=== PATIENT | male | born 1950 | race Caucasian/White ===

== ENCOUNTER → 2016-06-01 | Outpatient (CLI) | payer OTHER ==
[2016-06-01 12:10] LABS: ALT 37 U/L (21-72); AST 48 U/L (17-59); Cholesterol 154 mg/dL (<200); HDL Cholesterol 69 mg/dL (40-60); Triglycerides 62 mg/dL (<150)
== END | disposition home or self-care (01) ==
LOC: LABWHC1 08:52
PROVIDERS: ATTEND Internal Medicine Cardiovascular Disease
DX: E78.2 Mixed hyperlipidemia (principal)
CPT/HCPCS: 36415; 80061; 84450; 84460

== ENCOUNTER → 2016-10-05 | Outpatient (CLI) | payer OTHER | END | disposition home or self-care (01) | LOC: LABWHC1 10:36 | PROVIDERS: ATTEND Internal Medicine Cardiovascular Disease | DX: I48.2 Chronic atrial fibrillation (principal) | CPT/HCPCS: 36415; 84443 ==

== ENCOUNTER → 2017-07-14 | Outpatient (CLI) | payer OTHER ==
[2017-07-14 09:55] LABS: ALT 50 U/L (21-72); AST 55 U/L (17-59); Cholesterol 178 mg/dL (<200); Triglycerides 57 mg/dL (<150)
[2017-07-14 10:02] LABS: LDL Cholesterol,Calculated 53 mg/dL (0-99)
[2017-07-14 10:05] LABS: HDL Cholesterol 114 mg/dL (40-60)
== END | disposition home or self-care (01) ==
LOC: LABWHC1 09:03
PROVIDERS: ATTEND Internal Medicine Cardiovascular Disease
DX: E78.2 Mixed hyperlipidemia (principal)
CPT/HCPCS: 36415; 80061; 84450; 84460

== ENCOUNTER 2017-07-31 09:13 | Emergency (ER) | payer OTHER ==
[2017-07-31 09:25] VITALS: BP 127/78; PULSE 65; RESP 18; TEMP 97.4
[2017-07-31] MEDS ORDERED: FAMOTIDINE 20 MG TAB PO STA (09:47)
[2017-07-31] MEDS ORDERED: diphenhydrAMINE 25 MG CAP PO STA (09:47)
[2017-07-31] MEDS ORDERED: predniSONE 50 MG TAB PO STA (09:47)
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
== END 2017-07-31 10:04 | disposition home or self-care (01) ==
LOC: EC 09:13
DX: L25.5 Unspecified contact dermatitis due to plants, except food (principal); I48.91 Unspecified atrial fibrillation; I25.10 Atherosclerotic heart disease of native coronary artery without angina pectoris; E07.9 Disorder of thyroid, unspecified; I10 Essential (primary) hypertension; Z86.718 Personal history of other venous thrombosis and embolism; Z95.2 Presence of prosthetic heart valve; Z95.1 Presence of aortocoronary bypass graft; Z95.818 Presence of other cardiac implants and grafts; Z87.891 Personal history of nicotine dependence; Z79.82 Long term (current) use of aspirin; Z79.01 Long term (current) use of anticoagulants; Z79.899 Other long term (current) drug therapy
CPT/HCPCS: 99282; J7512

== ENCOUNTER → 2017-08-29 | Outpatient (CLI) | payer OTHER ==
[2017-08-29 13:13] LABS: Basophils % (A) 0 %; Eosinophils # (A) 0.1 k/uL (0-0.7); Eosinophils % (A) 1 %; HCT 41.9 % (39.0-53.0); HGB 13.9 gm/dL (13.0-17.5); Lymphocytes # (A) 1.1 k/uL (1.0-4.8); Lymphocytes % (A) 16 %; MCHC 33.2 g/dL (31.0-37.0); MCV 102.4 fL (80.0-100.0); Macrocytosis Slight; Mean Platelet Volume 7.2; Monocytes # (A) 0.5 k/uL (0-1.0); Monocytes % (A) 7 %; Neutrophils # (A) 5.1 k/uL (1.3-7.7); Neutrophils % (A) 72 %; Platelet Count 265 k/uL (150-450); RBC 4.09 m/uL (4.30-5.90); RDW 14.3 % (11.5-15.5); WBC 7.1 k/uL (3.8-10.6)
[2017-08-29 13:17] LABS: INR 2.6 (<1.2); Prothrombin Time 23.4 sec (9.0-12.0)
[2017-08-29 13:34] LABS: Albumin 3.5 g/dL (3.5-5.0); Calcium 8.7 mg/dL (8.4-10.2); Potassium 4.3 mmol/L (3.5-5.1); Total Bilirubin 1.1 mg/dL (0.2-1.3); Total Protein 6.2 g/dL (6.3-8.2)
== END | disposition home or self-care (01) ==
LOC: LABWHC1 12:44
PROVIDERS: ATTEND Family Medicine
DX: R06.02 Shortness of breath (principal); Z51.81 Encounter for therapeutic drug level monitoring; Z79.01 Long term (current) use of anticoagulants
CPT/HCPCS: 36415; 80053; 83880; 85025; 85610

== ENCOUNTER → 2017-10-19 | Outpatient (CLI) | payer OTHER ==
[2017-10-19 12:48] LABS: HCT 42.9 % (39.0-53.0); HGB 13.9 gm/dL (13.0-17.5); MCH 33.3 pg (25.0-35.0); MCHC 32.3 g/dL (31.0-37.0); MCV 102.9 fL (80.0-100.0); Macrocytosis Slight; Mean Platelet Volume 7.4; Platelet Count 205 k/uL (150-450); RBC 4.17 m/uL (4.30-5.90); RDW 13.5 % (11.5-15.5); WBC 6.3 k/uL (3.8-10.6)
[2017-10-19 13:02] LABS: Potassium 4.1 mmol/L (3.5-5.1)
== END | disposition home or self-care (01) ==
LOC: LABWHC1 12:28
PROVIDERS: ATTEND Internal Medicine Cardiovascular Disease
DX: Z01.812 Encounter for preprocedural laboratory examination (principal); I25.5 Ischemic cardiomyopathy
CPT/HCPCS: 36415; 80051; 82565; 84520; 85027

== ENCOUNTER → 2017-11-04 | Day surgery (SDC) | payer OTHER, MEDICARE ==
[2017-11-02 13:59] VITALS: BMI 25.0
[~2017-11-04] MED LIST: ACETAMINOPHEN TAB 325 MG TAB ONE; ACETAMINOPHEN TAB 325 MG TAB PO STA; ALPRAZolam 0.25 MG TAB PO PRN; ALPRAZolam 0.5 MG TAB PO PRN; ASPIRIN 325 MG TAB PO STA; ATORVASTATIN 80 MG TAB PO STA; HEPARIN SODIUM 1,000 UN/ML (10ML VL) ONE; IOPAMIDOL-370 125ML BTL INJ ONE; LIDOCAINE 1% INJ 10MG/ML (20 ML MDV) ONE; MIDAZOLAM 2 MG/2 ML VIAL ONE; NITROGLYCERIN SL TABS 0.4 MG TAB SUBLINGUAL PRN; SODIUM CHLORIDE 0.9% 1,000 ML IV ONE; SODIUM CHLORIDE 0.9% 1,000 ML IV SCH; SODIUM CHLORIDE 0.9% 1,000 ML in EMPTY BAG 1 BAG IV ONE; VERAPAMIL 2.5 MG/ML 2 ML AMP ONE; diphenhydrAMINE 50 MG/ML 1 ML VIAL IVP ONE; diphenhydrAMINE 50 MG/ML 1 ML VIAL ONE
[2017-11-04 06:49] VITALS: RESP 18; TEMP 97.4
[2017-11-04 06:49] LABS: INR 1.4 (<1.2); Prothrombin Time 13.2 sec (9.0-12.0)
[2017-11-04] MEDS: MIDAZOLAM 2 MG/2 ML VIAL IVP ONE ×4 (07:32→08:16)
[2017-11-04] MEDS: LIDOCAINE 1% (PF) 10MG/ML VIAL SQ ONE ×2 (07:37→08:10)
[2017-11-04] MEDS: VERAPAMIL SYRINGE (5 MG/10 ML) INTRAARTER ONE ×2 (08:15→08:43)
--- NOTE | 2017-11-04 09:18 | CC ---
CARDIAC CATHETERIZATION REPORT DATE OF SERVICE: 11/04/2017. PROCEDURE: Coronary angiography from left radial approach. PERFORMED BY: Dr. Denia Love. Moderate conscious sedation time was 43 minutes. Patient was administered Versed and Benadryl and his oxygen saturation and hemodynamics were monitored closely as well as EKG. CLINICAL INFORMATION: Mr. Orville Ba is a patient of Dr. Onofre, who was brought in for elective cardiac cath because of an abnormal stress test and suspicion for angina. This gentleman has a history of aortic valve replacement with a composite graft as well as reimplantation of coronaries and repair of a coarctation of the aorta and all of this was performed sometime in [address] [facility]. Onofre attempted the cardiac cath from the right femoral approach, but had difficulty gaining a good access with a Glidewire into the descending thoracic aorta. At this point, he asked me to help him. I suggested that we go from the left radial approach. This patient also had a single bypass with LIANG to LAD as well, according to information that was available. I therefore gained access from the left radial and placed a 6-Bangladeshi introducer under strict aseptic precautions and local anesthesia. Using a Greer catheter, I performed selective coronary angiography of the left internal mammary. It appeared that this was an ectatic vessel, seemed to be nonfunctional. The distal connection to the LAD was not evident and the flow was very sluggish and vessel was ectatic. I then using a Glidewire, gained access into the ascending aorta very carefully. Under fluoroscopic guidance, I was able to gain access with a standard right Danyell catheter into the [place] RCA and also using a standard left Danyell catheter into the left main coronary artery. Left main was a little more anterior and superior to the usual location. The access into the ascending aorta was somewhat difficult because of extreme tortuosity. However, selective coronary angiography was performed but I did not attempt to get into the left ventricle for pressures. The wire and the catheter was taken out. The sheath was taken out and TR band applied as per protocol with good hemostasis and good saturation of the fingers of the left hand. The right femoral sheath was pulled and manual compression applied and FemoStop will be applied. Patient tolerated procedure well without complication. Results were discussed with the patient and Dr. Onofre spoke to his at length. CARDIAC CATHETERIZATION FINDINGS: The left ventricle end-diastolic pressure was not checked and LV was not entered and aortic valve not crossed. LEFT INTERNAL MAMMARY ARTERY GRAFT TO LAD: This graft appears to be ectatic with a tortuosity and a large caliber and ectasia in the proximal portion of the left internal mammary artery, but the distal anastomosis is not evident. It appears that the LIANG anastomosed is nonfunctional. RIGHT CORONARY ARTERY: Technically dominant vessel. No significant disease. Tortuous distally, bifurcates into a larger PDA, small PLV. No significant disease in the branches of RCA. LEFT MAIN CORONARY ARTERY: Short, patent, disease-free vessel that bifurcates into LAD and circumflex. Left main itself is free of significant disease. LEFT ANTERIOR DESCENDING CORONARY ARTERY: Good caliber vessel, extends along the anterior wall and gives off septal and diagonal branches, runs all the way to the apex, has minor irregularities, no significant disease. LEFT POSTERIOR CIRCUMFLEX CORONARY ARTERY: Technically a nondominant good caliber vessel that runs laterally, mostly in the PLV distribution, has minor irregularities and no significant disease. FINAL IMPRESSION: This patient has no significant obstructive coronary artery disease in his [place] vessels. The LIANG appears to be somewhat ectatic and nonfunctional. Procedure was performed from the left radial approach. LV pressures were not obtained. The findings were discussed with the patient and Dr. Onofre spoke to the patient's . RECOMMENDATION: Will continue medical therapy with risk factor modification and his medication will be resumed and he will be discharged later on today if he remains stable. He will see Dr. Onofre in one week. MMODL / IJN: [id number] /
[2017-11-04 16:26] VITALS: BP 98/63; PULSE 62
== END ==
LOC: CATHCVL 06:07
PROVIDERS: ATTEND Internal Medicine Cardiovascular Disease
DX: I25.700 Atherosclerosis of coronary artery bypass graft(s), unspecified, with unstable angina pectoris (principal); I48.2 Chronic atrial fibrillation; I71.2 Thoracic aortic aneurysm, without rupture; R94.39 Abnormal result of other cardiovascular function study; I35.0 Nonrheumatic aortic (valve) stenosis; I25.5 Ischemic cardiomyopathy; I10 Essential (primary) hypertension; R00.1 Bradycardia, unspecified; I25.2 Old myocardial infarction; Z95.2 Presence of prosthetic heart valve; F17.210 Nicotine dependence, cigarettes, uncomplicated; Z79.01 Long term (current) use of anticoagulants; Z79.890 Hormone replacement therapy; Z79.899 Other long term (current) drug therapy
CPT/HCPCS: 93455; 85610; C1769 ×3; C1894 ×2; J2250; J1200; J2001; Q9967

== ENCOUNTER → 2019-07-05 | Outpatient (CLI) | payer BC, MEDICARE ==
--- NOTE | 2019-07-06 07:36 | CT ---
EXAMINATION TYPE: CT chest w con DATE OF EXAM: 07/05/2019 COMPARISON: CTA chest August 06, 2013. Two-view chest x-ray April 09, 2019. HISTORY: cough. Recent significant weight loss. CT DLP: 351 mGycm. Automated Exposure Control for Dose Reduction was Utilized. TECHNIQUE: CT scan of the thorax is performed following with IV Contrast, patient injected with 80 m L of Isovue 300. FINDINGS: LUNGS: Redemonstration of calcified pleural plaque left lung base could reflect products of old traum a. Current study shows more prominent dependent atelectasis in the bilateral lower lobes and increase d interstitial markings bilaterally suggesting mild interstitial edema. No suspicious focal consolida tion. No pleural effusion or pneumothorax noted bilaterally. No concerning nodules or masses. MEDIASTINUM: There are no greater than 1 cm hilar or mediastinal lymph nodes. No pericardial effusi on is seen. There is cardiomegaly redemonstrated increased in size from 2014 CT. Fairly moderate lef t atrial dilatation more prominent from prior CT with densely calcified mitral valve noted. Additiona l calcification at level of aortic valve again seen. At least moderate coronary artery calcification is redemonstrated which is noted risk factor for underlying coronary artery disease. Similar to prior study there is three-vessel origin from aortic arch with dilated left subclavian artery. There is an linear hypodensity in the ectatic and atherosclerotic descending left-sided thoracic aorta. There is also right-sided better contrast enhancement descending thoracic aorta redemonstrated. Overlying juan rnal wires redemonstrated. OTHER: New small hiatal hernia noted. Dependent density in gallbladder favors small stones and/or gal lbladder sludge. Some renal cortical volume loss bilaterally is partially imaged. S-shaped scoliotic curvature with mild to moderate multilevel thoracic spurring. Multiple small splenules in the left up per quadrant are redemonstrated increased in size from prior CT. IMPRESSION: 1. Redemonstration of patent right sided graft from the ascending aorta for treatment of known coarct ation. Persistent cardiomegaly with mild interstitial edema on current study. Cannot exclude mild CHF exacerbation or fluid overload state. No suspicious acute infiltrate or concerning new mass/adenopat hy.
== END | disposition home or self-care (01) ==
LOC: RADCTMAIN 13:50
PROVIDERS: ATTEND Internal Medicine Hematology & Oncology
DX: I51.7 Cardiomegaly (principal); R05 Cough
CPT/HCPCS: 82565; 84520; 71260; 36415; Q9967

== ENCOUNTER → 2019-09-13 | Outpatient (CLI) | payer BC, MEDICARE ==
[2019-09-13 15:24] LABS: HCT 35.8 % (39.0-53.0); HGB 11.5 gm/dL (13.0-17.5); MCH 30.6 pg (25.0-35.0); MCHC 32.1 g/dL (31.0-37.0); MCV 95.5 fL (80.0-100.0); Mean Platelet Volume 8.4; Platelet Count 263 k/uL (150-450); RBC 3.75 m/uL (4.30-5.90); WBC 9.5 k/uL (3.8-10.6)
[2019-09-14 00:42] LABS: African American GFR (CKD) 50.6 (60.0-200.0); Anion Gap 5.8 mmol/L (4.00-12.00); Calcium 9.3 mg/dL (8.7-10.3); Carbon Dioxide 26.2 mmol/L (21.6-31.8); Non-African American GFR(CKD) 43.6 (60.0-200.0); Potassium 4.7 mmol/L (3.5-5.5)
== END | disposition home or self-care (01) ==
LOC: LABWHC1 14:46
PROVIDERS: ATTEND Internal Medicine Cardiovascular Disease
DX: I50.22 Chronic systolic (congestive) heart failure (principal)
CPT/HCPCS: 36415; 80048; 83880; 84443; 85027

== ENCOUNTER → 2019-10-25 | Day surgery (SDC) | payer BC, MEDICARE ==
[2019-10-23 10:41] VITALS: BMI 23.7
[~2019-10-25] MED LIST changes: -ACETAMINOPHEN TAB 325 MG TAB ONE; -ACETAMINOPHEN TAB 325 MG TAB PO STA; -ALPRAZolam 0.25 MG TAB PO PRN; -ALPRAZolam 0.5 MG TAB PO PRN; -ASPIRIN 325 MG TAB PO STA; -ATORVASTATIN 80 MG TAB PO STA; +BENZOCAINE SPRAY 1 CAN MUCOUS MEM ONE; -HEPARIN SODIUM 1,000 UN/ML (10ML VL) ONE; -IOPAMIDOL-370 125ML BTL INJ ONE; +LACTATED RINGERS 1,000 ML IV SCH; -MIDAZOLAM 2 MG/2 ML VIAL ONE; -NITROGLYCERIN SL TABS 0.4 MG TAB SUBLINGUAL PRN; +PROPOFOL 10 MG/ML 20 ML VIAL IV ONE; -SODIUM CHLORIDE 0.9% 1,000 ML IV ONE; -SODIUM CHLORIDE 0.9% 1,000 ML in EMPTY BAG 1 BAG IV ONE; -VERAPAMIL 2.5 MG/ML 2 ML AMP ONE; -diphenhydrAMINE 50 MG/ML 1 ML VIAL IVP ONE; -diphenhydrAMINE 50 MG/ML 1 ML VIAL ONE
[2019-10-25 07:06] VITALS: TEMP 98.6
[2019-10-25 07:45] LABS: Potassium 4.8 mmol/L (3.5-5.1)
[2019-10-25 08:06] VITALS: RESP 16
--- NOTE | 2019-10-25 09:01 | ECHOT ---
TRANSESOPHAGEAL ECHOCARDIOGRAM TRANSESOPHAGEAL ECHO: INDICATION: Persistent atrial fibrillation to rule out intracardiac thrombus. PROCEDURE NOTE: After obtaining informed consent, transesophageal echocardiogram was performed in left lateral position using an Omni plane probe. Local and IV sedation were obtained by the retail advertising account executive. Color Doppler and 2D evaluation was performed. Patient tolerated the procedure well without any obvious immediate complications. FINDINGS: 1. There is no intracardiac thrombus within the left atrial appendage, left atrium, right atrium, right ventricle or left ventricle. 2. Spontaneous echo contrast is noted within the left atrium and left atrial appendage. 3. Interatrial septum, there is no evidence of [id number]-ki-fonqz shunt by color-flow Doppler. Mitral valve shows pyrometer mechanic calcification with moderate central mitral regurgitation. 4. Aortic valve is a bioprosthetic valve. There is no evidence of aortic stenosis or regurgitation. The prosthetic valve is functioning normally. 5. Tricuspid valve shows mild tricuspid regurgitation. 6. Left ventricle appears enlarged with mild LV dysfunction with an ejection fraction of 40%-45% with hypokinesis involving inferior wall. 7. Left atrium appears enlarged. Right atrium and right ventricle seen within normal limits. Aorta shows lesa-hi-lwrmdxyc atherosclerotic changes. Aortic root is not dilated. CONCLUSION: 1. No evidence of intracardiac thrombus. 2. LV systolic dysfunction. 3. Normally functioning bioprosthetic valve in aortic position. PLAN: Patient will proceed with cardioversion. CARDIOVERSION NOTE: INDICATION: Persistent atrial fibrillation. PROCEDURE NOTE: After obtaining informed consent and making sure that the patient does not have any intracardiac thrombus, he underwent synchronized electrical cardioversion with 300 joules. He converted to sinus rhythm following a single shock. The patient had been on Eliquis which he is going to continue. Post conversion, he was bradycardic. I am going to decrease the dose of his Toprol-XL from 50 b.i.d. to 25 mg daily. He will be discharged home on Eliquis, beta agustina and see how his symptoms improve. MMODL / IJN: [id number] /
[2019-10-25 09:23] VITALS: BP 108/72; PULSE 55
--- NOTE | 2019-10-28 11:21 | CDI ---
Outpatient Documentation Clarification Form Date: 10/25/19 CDS/Rigger Name: Christina Nieto Phone: If any questions, call Nunu Xie Electrical Assembler at [phone] Patient Name: Orville Ba Admit Date: 10/25/19 Discharge Date: 10/25/19 ATTENTION: The [facility] Coding Staff appreciate your assistance in clarifying documentation. Please respond to the clarification below the line at the bottom and electronically sign. The [facility] Coding staff will review the response and follow-up if needed. Please note: Queries are made part of the Legal Health Record. If you have any questions, please contact the Electrical Assembler. Dear Dr. Onofre, Please clarify the complete procedure performed. The procedure note documents two parts of the KRYSTAL. In order to code to the greatest specificity, please clarify and document if all parts of the KRYSTAL were performed. Thank you for your kind consideration . MTDD
--- NOTE | 2019-10-29 08:04 | CDI ---
Outpatient Documentation Clarification Form Date: 10/29/19 CDS/Tumble Tailstock Turret Lathe Operator Name: Phone: If any questions, call Nunu Xie Data Acquisition Technician at [phone] Patient Name: Orville Ba Admit Date: 10/25/19 Discharge Date: 10/25/19 ATTENTION: The [facility] Coding Staff appreciate your assistance in clarifying documentation. Please respond to the clarification below the line at the bottom and electronically sign. The [facility] Coding staff will review the response and follow-up if needed. Please note: Queries are made part of the Legal Health Record. If you have any questions, please contact the Data Acquisition Technician. Dear Dr. Onofre, Please provide clarification as to the full procedure that was performed. The charges indicate that all aspects of the KRYSTAL were performed. However, the procedure note does not document the whole procedure. Please clarify if all of the following were performed. Echocardiography,transesophageal,real time 2D imaging Doppler echocardiography pulse wave and/or continuous wave wit spectral display Doppler echocardiography color flow velocity mapping Thank you for your kind consideration. 2d doppler pulse wave and continuos done__ MTDD
== END ==
LOC: CATHCVL 06:40
PROVIDERS: ATTEND Internal Medicine Cardiovascular Disease
DX: I70.0 Atherosclerosis of aorta (principal); I08.1 Rheumatic disorders of both mitral and tricuspid valves; I11.0 Hypertensive heart disease with heart failure; I50.22 Chronic systolic (congestive) heart failure; I38 Endocarditis, valve unspecified; I48.21 Permanent atrial fibrillation; I25.10 Atherosclerotic heart disease of native coronary artery without angina pectoris; I25.5 Ischemic cardiomyopathy; I71.2 Thoracic aortic aneurysm, without rupture; Z95.1 Presence of aortocoronary bypass graft; Z95.2 Presence of prosthetic heart valve; Z72.0 Tobacco use; Z79.01 Long term (current) use of anticoagulants; Z79.890 Hormone replacement therapy; Z79.899 Other long term (current) drug therapy
CPT/HCPCS: 93312; 93320; 93325; 92960; 80048; J2001; J2704

== ENCOUNTER → 2019-12-04 | Outpatient (CLI) | payer BC, MEDICARE ==
--- NOTE | 2019-12-04 14:07 | XR ---
EXAMINATION TYPE: XR chest 2V DATE OF EXAM: 12/04/2019 COMPARISON: 04/09/2019 HISTORY: Shortness of breath TECHNIQUE: Frontal and lateral views of the chest are obtained. FINDINGS: Scattered senescent parenchymal changes noted. Hyperinflation compatible with COPD. No evidence for infiltrate. No evidence for atelectasis. Heart size is stable. Mediastinal structures are stable and grossly unremarkable. No evidence for hilar prominence. Degenerative changes dorsal spine. IMPRESSION: 1. No evidence for acute pulmonary disease.
== END | disposition home or self-care (01) ==
LOC: RADXRMAIN 13:32
PROVIDERS: ATTEND Family Medicine
DX: R13.10 Dysphagia, unspecified (principal)
CPT/HCPCS: 71046

== ENCOUNTER → 2019-12-17 | Outpatient (CLI) | payer BC, MEDICARE ==
--- NOTE | 2019-12-17 16:37 | FL ---
EXAMINATION TYPE: FL barium swallow w video DATE OF EXAM: 12/17/2019 MODIFIED BARIUM SWALLOW FLUOROSCOPY EXAM CLINICAL HISTORY: Dysphagia. History of GERD. TECHNIQUE: Notified barium swallow study is performed utilizing thin liquid barium, honey and nectar thick liquid barium, barium thick puree, and barium coated cracker. COMPARISON: None. FINDINGS: The oral and pharyngeal phases show satisfactory initiation and propagation with all modali ties tested. Normal mastication is seen with solid modalities tested. There is no evidence of penet ration or aspiration with any modality tested. No significant pharyngeal residue was appreciated. Total fluoroscopy time: 1 minute IMPRESSION: No evidence of penetration or aspiration. Please refer to speech therapist notes for fu rther details if necessary.
== END | disposition home or self-care (01) ==
LOC: RADFLMAIN 11:13
PROVIDERS: ATTEND Family Medicine
DX: K21.9 Gastro-esophageal reflux disease without esophagitis (principal); R13.10 Dysphagia, unspecified
CPT/HCPCS: 74230

== ENCOUNTER → 2020-01-03 | Outpatient (CLI) | payer BC, MEDICARE ==
[2020-01-03 15:14] LABS: HCT 37.9 % (39.0-53.0); HGB 12.2 gm/dL (13.0-17.5); MCH 30.7 pg (25.0-35.0); MCHC 32.2 g/dL (31.0-37.0); MCV 95.3 fL (80.0-100.0); Mean Platelet Volume 9.1; Platelet Count 198 k/uL (150-450); RBC 3.98 m/uL (4.30-5.90); RDW 14.5 % (11.5-15.5); WBC 11.4 k/uL (3.8-10.6)
[2020-01-03 21:22] LABS: African American GFR (CKD) 20.3 (60.0-200.0); Anion Gap 9.4 mmol/L (4.00-12.00); BUN/Creat Ratio 15.88 Ratio (12.00-20.00); Calcium 8.5 mg/dL (8.7-10.3); Carbon Dioxide 19.6 mmol/L (21.6-31.8); Non-African American GFR(CKD) 17.5 (60.0-200.0); Potassium 5.2 mmol/L (3.5-5.5)
== END | disposition home or self-care (01) ==
LOC: LABWHC1 13:52
PROVIDERS: ATTEND Internal Medicine Cardiovascular Disease
DX: I48.19 Other persistent atrial fibrillation (principal); Q25.1 Coarctation of aorta; Z95.2 Presence of prosthetic heart valve
CPT/HCPCS: 36415; 80048; 84443; 85027

== ENCOUNTER 2020-01-18 19:46 | Inpatient (IN) | payer BC, MEDICARE ==
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
[2020-01-18] MEDS ORDERED: SODIUM CHLORIDE 0.9% 500 ML 500 ML IV STA (20:16)
[2020-01-18] MEDS ORDERED: SODIUM CHLORIDE 0.9% 1,000 ML IV STA ×3 (20:16→21:46)
[2020-01-18 20:33] LABS: Basophils % (A) 0 %; Eosinophils % (A) 0 %; HCT 34.5 % (39.0-53.0); HGB 11.6 gm/dL (13.0-17.5); Lymphocytes # (A) 3.6 k/uL (1.0-4.8); Lymphocytes % (A) 31 %; MCH 30.8 pg (25.0-35.0); MCHC 33.5 g/dL (31.0-37.0); Mean Platelet Volume 9.4; Monocytes # (A) 0.4 k/uL (0-1.0); Monocytes % (A) 4 %; Neutrophils # (A) 7.1 k/uL (1.3-7.7); Neutrophils % (A) 62 %; Platelet Count 135 k/uL (150-450); RBC 3.75 m/uL (4.30-5.90); WBC 11.5 k/uL (3.8-10.6)
[2020-01-18 20:45] LABS: ALT 13 U/L (4-49); AST 23 U/L (17-59); African American GFR (CKD) 13 (>60 ml/min/1.73 sqM); Albumin 2.9 g/dL (3.5-5.0); Alcohol <10 mg/dL; Alkaline Phosphatase 107 U/L (38-126); Anion Gap 8 mmol/L; Blood Urea Nitrogen 84 mg/dL (9-20); C Reactive Protein 42.8 mg/L (<10.0); Calcium 8.2 mg/dL (8.4-10.2); Carbon Dioxide 18 mmol/L (22-30); Chloride 106 mmol/L (98-107); Creatine Kinase 22 U/L (55-170); Glucose 105 mg/dL (74-99); LDH 615 U/L (313-618); Magnesium 2.1 mg/dL (1.6-2.3); Non-African American GFR(CKD) 11 (>60 ml/min/1.73 sqM); Phosphorus 5.2 mg/dL (2.5-4.5); Potassium 4.8 mmol/L (3.5-5.1); Sodium 132 mmol/L (137-145); Total Bilirubin 0.9 mg/dL (0.2-1.3); Total Protein 8.2 g/dL (6.3-8.2)
--- NOTE | 2020-01-18 20:46 | XR ---
EXAMINATION TYPE: XR chest 1V portable DATE OF EXAM: 01/18/2020 COMPARISON: 12/04/2019 HISTORY: Short of breath TECHNIQUE: FINDINGS: Heart is enlarged. There are sternal wires. There is coarse mild interstitial pulmonary den sity. There are chest leads. There is no pleural effusion. There are no hilar masses. IMPRESSION: Mild cardiomegaly. Mild pulmonary interstitial infiltrate similar to old exam. This could relate to pulmonary fibrosis or mild heart failure. Acute interstitial pneumonia also possible.
[2020-01-18] MEDS ORDERED: IPRATROPIUM-ALBUTEROL 3 ML NEB INHALATION STA ×2 (21:02→22:47)
[2020-01-18 21:06] LABS: INR 1.3 (<1.2); Partial Thromboplastin Time 33.7 sec (22.0-30.0); Prothrombin Time 12.9 sec (9.0-12.0)
[2020-01-18] MEDS ORDERED: SODIUM CHLORIDE 0.9% 2,000 ML IV STA (21:46)
[2020-01-19] MEDS: SODIUM CHLORIDE 0.9% 1,000 ML IV SCH ×3 (02:00→17:15)
[2020-01-19] MEDS ORDERED: DILTIAZEM DRIP BOLUS FROM BAG 1 MG SOLN IV ONE (05:18)
[2020-01-19] MEDS: DILTIAZEM 125 MG in SODIUM CHLORIDE 0.9% 100 ML IV SCH (06:03)
[2020-01-19 06:37] LABS: Basophils % (A) 0 %; Eosinophils % (A) 0 %; HCT 36.5 % (39.0-53.0); HGB 11.6 gm/dL (13.0-17.5); Lymphocytes # (A) 3.8 k/uL (1.0-4.8); Lymphocytes % (A) 30 %; MCHC 31.9 g/dL (31.0-37.0); MCV 94.2 fL (80.0-100.0); Mean Platelet Volume 10.4; Monocytes # (A) 0.4 k/uL (0-1.0); Monocytes % (A) 3 %; Neutrophils # (A) 8.2 k/uL (1.3-7.7); Neutrophils % (A) 64 %; Platelet Count 109 k/uL (150-450); RBC 3.87 m/uL (4.30-5.90); RDW 14.6 % (11.5-15.5); WBC 12.8 k/uL (3.8-10.6)
[2020-01-19 06:57] LABS: Albumin 3.1 g/dL (3.5-5.0); Calcium 8.3 mg/dL (8.4-10.2); Potassium 4.9 mmol/L (3.5-5.1); Total Bilirubin 0.9 mg/dL (0.2-1.3); Total Protein 8.7 g/dL (6.3-8.2)
[2020-01-19] MEDS ORDERED: ALBUTEROL HFA INHALER INHALATION SCH (08:00)
[2020-01-19] MEDS: METOPROLOL TARTRATE 25 MG TAB PO SCH ×2 (08:40→19:55)
[2020-01-19] MEDS ORDERED: ENOXAPARIN 40 MG/0.4 ML SYRINGE SQ SCH (09:00)
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
--- NOTE | 2020-01-19 12:00 | ECHOF ---
Referral Reason:chf MEASUREMENTS -------- HEIGHT: 177.8 cm WEIGHT: 90.7 kg BP: IVSd: 1.3 cm (0.6 - 1.1) LVIDd: 4.6 cm (3.9 - 5.3) LVPWd: 1.4 cm (0.6 - 1.1) EDV(Teich): 99 ml IVSs: 1.4 cm LVIDs: 3.8 cm LVPWs: 1.5 cm %IVS Thck: 13 % ESV(Teich): 64 ml EF(Teich): 36 % %FS: 17 % SV(Teich): 36 ml LA Diam: 1.3 cm (2.7 - 3.8) RVIDd: 2.9 cm (< 3.3) IVC: 16.67 mm LVLd A4C: 8.1 cm LVEDV MOD A4C: 154 ml LVLs A4C: 7.5 cm LVESV MOD A4C: 86 ml LVEF MOD A4C: 45 % SV MOD A4C: 69 ml LALs A4C: 8.0 cm LAAs A4C: 36.8 cm LAESV A-L A4C: 143 ml LAESV MOD A4C: 137 ml LALs A2C: 7.3 cm LAAs A2C: 30.6 cm LAESV A-L A2C: 108 ml LAESV MOD A2C: 102 ml LAESV(A-L): 130 ml LAESV Index (A-L): 62.36 ml/m Ao Diam: 2.5 cm (2.0 - 3.7) LA Diam: 4.8 cm (2.7 - 3.8) AV Cusp: 1.4 cm (1.5 - 2.6) EPSS: 1.5 cm MV E Clement: 1.79 m/s MV DecT: 234 ms MV Dec [place]: 7.6 m/s MV A Clement: 0.99 m/s MV E/A Ratio: 1.81 MV PHT: 68 ms MV PHT: 72 ms MVA By PHT: 3.0 cm MV Vmax: 1.82 m/s MV Vmean: 0.77 m/s MV maxP.18 mmHg MV meanP.58 mmHg MV VTI: 50.9 cm MR Vmax: 4.15 m/s MR maxP.86 mmHg AV Vmax: 2.87 m/s AV maxP.08 mmHg AV Vmax: 3.05 m/s AV Vmean: 2.48 m/s AV maxP.33 mmHg AV meanP.84 mmHg AV Env.Ti: 245 ms AV VTI: 60.5 cm TR Vmax: 1.76 m/s TR maxP.46 mmHg RAP: 5.00 mmHg RVSP: 17.46 mmHg MV EF SLOPE: 109.08 mm/s (70 - 150) MV EXCURSION: 16.31 mm (> 18.000) FINDINGS -------- This was a technically good study. The left ventricular size is normal. There is moderate concentric left ventricular hypertrophy. O verall left ventricular systolic function is mildly impaired with, an EF between 45 - 50 %. Increas ed LAP Grade 2 Diastolic Dysfunction. Basal posterior LV wall motion is hypokinetic. Apical sept um LV wall motion is hypokinetic. The right ventricle is normal in size. LA is severely dilated >40 ml/m2 The right atrial size is normal. Aortic valve is trileaflet and is severely thickened. There is moderate aortic stenosis present. Peak/mean gradient across the Aortic Valve is 37.33mmHg / 25.84mmHg. Cannot rule out vegetation. The mitral valve is normal. The mitral valve leaflets are moderately thickened. Moderate mitral a nnular calcification present. Moderate mitral regurgitation is present. The peak and mean MV gra dients are 13.18mmHg 3.58mmHg as measured by doppler. Mild mitral stenosis. The tricuspid valve appears structurally normal. Mild tricuspid regurgitation present. Right vent ricular systolic pressure is normal at < 35 mmHg. There is no pulmonic regurgitation present. The aortic root size is normal. Normal inferior vena cava with normal inspiratory collapse consistent with estimated right atrial pre ssure of 5 mmHg. There is no pericardial effusion. CONCLUSIONS -------- 1. The left ventricular size is normal. 2. There is moderate concentric left ventricular hypertrophy. 3. Overall left ventricular systolic function is mildly impaired with, an EF between 45 - 50 %. 4. Increased LAP Grade 2 Diastolic Dysfunction. 5. Basal posterior LV wall motion is hypokinetic. 6. LA is severely dilated >40 ml/m2 7. Aortic valve is trileaflet and is severely thickened. 8. There is moderate aortic stenosis present. 9. Peak/mean gradient across the Aortic Valve is 37.33mmHg / 25.84mmHg. 10. Cannot rule out vegetation. 11. The mitral valve leaflets are moderately thickened. 12. Moderate mitral annular calcification present. 13. Moderate mitral regurgitation is present. 14. The peak and mean MV gradients are 13.18mmHg 3.58mmHg as measured by doppler. 15. Mild mitral stenosis. 16. Mild tricuspid regurgitation present. 17. There is no pericardial effusion. HYDROGEN CELL TENDER: Trish West RDCS
[2020-01-19] MEDS ORDERED: HEPARIN SODIUM,PORCINE 5,000 UNIT/ML 1 ML VIAL IV ONE (13:02)
[2020-01-19] MEDS ORDERED: HEPARIN SODIUM,PORCINE 5,000 UNIT/ML 1 ML VIAL IV PRN (13:02)
--- NOTE | 2020-01-19 13:22 | US ---
EXAMINATION TYPE: US kidneys/renal and bladder DATE OF EXAM: 01/19/2020 COMPARISON: NONE CLINICAL HISTORY: acute renal failure. abnormal labs. poor historian EXAM MEASUREMENTS: Right Kidney: 11.5 x 5.6 x 5.5 cm Left Kidney: 11.3 x 4.7 x 6.3 cm Right Kidney: No hydronephrosis or masses seen Left Kidney: No hydronephrosis or masses seen. Suboptimal visualization due to overlying bowel gas. Spleen not visualized due to patient position. Bladder: Mildly distended, anechoic Bilateral Jets not seen Increased cortical echogenicity bilaterally. Suboptimal study without gross hydronephrosis. No concer sukhdev masses on images today. IMPRESSION: Suboptimal study without hydronephrosis seen bilaterally.
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
[2020-01-19] MEDS: HEPARIN SOD,PORK IN 0.45% NACL 25,000 UNIT in 0.45% NACL 1 250ML.BAG IV SCH (13:57)
[2020-01-19] MEDS ORDERED: ACETAMINOPHEN TAB 325 MG TAB PO PRN (14:51)
[2020-01-19] MEDS: ATORVASTATIN 40 MG TAB PO SCH (17:14)
[2020-01-19 17:16] LABS: Appearance,Urine Clear (Clear); Bacteria,Urine Occasional /hpf; Bilirubin,Urine Negative (Negative); Blood,Urine Moderate (Negative); Color,Urine Yellow; Glucose,Urine (UA) Negative (Negative); Ketones,Urine Negative (Negative); Leukocyte Esterase,Urine Negative (Negative); Mucus,Urine Rare /hpf; Nitrite,Urine Negative (Negative); Protein,Urine Trace (Negative); RBC,Urine 146 /hpf (0-5); Urobilinogen,Urine <2.0 mg/dL (<2.0); WBC,Urine 2 /hpf (0-5)
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
[2020-01-19] MEDS ORDERED: VANCOMYCIN 1,000 MG in SODIUM CHLORIDE 0.9% 250 ML IVPB STA (18:31)
[2020-01-19] MEDS ORDERED: VANCOMYCIN IV PER PHARMACY 1 EACH MISC MISCELLANE PRN (18:31)
[2020-01-19] MEDS: DEXTROSE 5% IN WATER 1,000 ML with SODIUM BICARB (1 MEQ/ML) 150 ML IV SCH (18:35)
[2020-01-19] MEDS ORDERED: VANCOMYCIN 1,500 MG in SODIUM CHLORIDE 0.9% 250 ML IVPB ONE (19:00)
[2020-01-19] MEDS: LEVOTHYROXINE 100 MCG TAB PO SCH (19:55)
[2020-01-19] MEDS: MEROPENEM 1 GM in SODIUM CHLORIDE 0.9% 100 ML IVPB SCH (22:23)
[2020-01-19 23:06] LABS: Urine Alcohol Negative (Negative); Urine Barbiturate Negative (Negative); Urine Cocaine Negative (Negative); Urine Methadone Negative (Negative); Urine Opiates Negative (Negative); Urine Phencyclidine Negative (Negative)
[2020-01-20] MEDS: DILTIAZEM 125 MG in SODIUM CHLORIDE 0.9% 100 ML IV SCH (02:43)
[2020-01-20] MEDS: DEXTROSE 5% IN WATER 1,000 ML with SODIUM BICARB (1 MEQ/ML) 150 ML IV SCH ×2 (06:31→21:51)
--- NOTE | 2020-01-20 06:49 | XR ---
EXAMINATION TYPE: XR chest 2V DATE OF EXAM: 01/20/2020 COMPARISON: Chest x-ray 2 days ago and older studies. CT chest July 05, 2019. HISTORY: Shortness of breath. CHF. TECHNIQUE: Frontal and lateral views of the chest are obtained. FINDINGS: Overlying sternal wires are redemonstrated. Persistent cardiomegaly with increasing centra l opacities bilaterally and left basilar opacity. Suspect tiny bilateral pleural effusions on lateral view. Osseous structures are intact. IMPRESSION: Suspect worsening CHF exacerbation as there is cardiomegaly with increasing mild to mode rate central vascular congestion and tiny bilateral pleural effusions. Developing left basilar acute infiltrate and/or atelectasis is noted. Correlate clinically.
[2020-01-20] MEDS: MEROPENEM 1 GM in SODIUM CHLORIDE 0.9% 100 ML IVPB SCH ×2 (07:59→20:07)
[2020-01-20] MEDS: METOPROLOL TARTRATE 25 MG TAB PO SCH ×2 (08:00→20:04)
[2020-01-20] MEDS: ATORVASTATIN 40 MG TAB PO SCH (08:00)
[2020-01-20 08:50] LABS: Basophils % (A) 0 %; Eosinophils # (A) 0.1 k/uL (0-0.7); Eosinophils % (A) 1 %; HCT 27.9 % (39.0-53.0); Lymphocytes # (A) 3.8 k/uL (1.0-4.8); Lymphocytes % (A) 36 %; MCH 30.7 pg (25.0-35.0); MCHC 33.5 g/dL (31.0-37.0); MCV 91.6 fL (80.0-100.0); Mean Platelet Volume 9.5; Monocytes # (A) 0.7 k/uL (0-1.0); Monocytes % (A) 6 %; Neutrophils # (A) 5.8 k/uL (1.3-7.7); Neutrophils % (A) 54 %; Platelet Count 124 k/uL (150-450); RBC 3.05 m/uL (4.30-5.90); RDW 14.1 % (11.5-15.5); WBC 10.7 k/uL (3.8-10.6)
[2020-01-20 08:51] LABS: Calcium 7.6 mg/dL (8.4-10.2); Potassium 3.9 mmol/L (3.5-5.1)
[2020-01-20 08:52] LABS: HGB 9.4 gm/dL (13.0-17.5)
--- NOTE | 2020-01-20 10:43 | P.PN ---
Subjective This is a 69 y/o male with h/o Hypothyroiodism, Afib, hypertension,and Hyperlipidemia who presented to [facility] ER with ftaigue. He was found to be in acute renal failure based on lab studies. He has been fluid recusitated somewhat. he appears to have some Acute CHF as well based on Xray findings. This am he developed AFIB with RVR and is now on Cardizem drip. he denies any Chest pain, pressure, SOB, nausea, vomiting or dysuria.He denies NSAID use as he is on LT anticoagulation 01/20/2020: Patient is still complaining of fatigue, but denies any chest pain pressure shortness breath at this time. He does have shortness of breath with exertion. A 2-D echo ordered by cardiology showed a questionable to the aortic valve. EF was 45-50%. There is moderate mitral regurgitation, moderate aortic stenosis, grade 2 diastolic dysfunction, mild mitral stenosis and mild tricuspid regurgitation. Nephrology diagnosed him with acute knee injury possibly ischemic ATN with hypotension. There are concerns regarding sepsis, however his lactic acid is been negative 2. Blood cultures are pending. Patient is currently on meropenem and vancomycin. He's been started on bicarbonate drip for metabolic acidosis. THE KIDNEY AND BLADDER WERE SUBOPTIMAL, BUT FAILED TO SHOW ANY HYDRONEPHROSIS. NO CONCERNING MASSES WERE SEEN. Chest x-ray this a.m. shows developing left basilar acute infiltrate and/or atelectasis. Suspect worsening CHF exacerbation. MAXIMUM TEMPERATURE overnight is 100.5 as of 1700. Blood pressures remained stable. Objective - Vital Signs Vital signs: Vital Signs Temp 99.4 F 01/20/20 08:00 Pulse 80 01/20/20 08:00 Resp 20 01/20/20 08:00 BP 108/65 01/20/20 08:00 Pulse Ox 96 01/20/20 08:00 Intake & Output 01/19/20 01/20/20 01/20/20 18:59 06:59 18:59 Intake Total 800 864.670 Output Total 868 Balance -68 864.670 Weight 90.718 kg 76 kg Intake: Intake, IV Titration 800 114.670 Amount Heparin Sod,Pork in 0.45% 114.670 NaCl 25,000 unit In 0.45 % NaCl 1 250ml.bag @ 11 UNITS/KG/HR 9.979 mls/hr IV .Q24H [facility] Rx#: [id number] Sodium Chloride 0.9% 1, 800 000 ml @ 100 mls/hr IV . Q10H [facility] Rx#:[id number] Oral 750 Output: Urine 450 Uretheral (Rodriguez) 450 Post Void Residual 418 Other: Voiding Method Urinal Indwelling Catheter Indwelling Catheter Diaper # Voids 3 - Exam General: The patient is awake and alert, in no distress, and appears fatigued and perspiring. Neck: The neck is supple, there is no thyromegaly, lymphadenopathy, tenderness or JVD. Cardiovascular: S1S2 is normal, There is a regular rate and rhythm. No rub or gallop is appreciated. 1/6 systolic murmur over the right sternal border Respiratory: Lungs are coarse with bibasilar crackles and questionable rhonchi noted developing to the left days. Gastrointestinal: Soft, non-distended, non-tender abdomen without masses or organomegaly noted. There is no rebound or guarding present. Bowel sounds are unremarkable. Musculoskeletal: Normal ROM, no tenderness, There is no pedal edema. There is no calf tenderness or swelling. No cords were appreciated. Neurological: CN II-XII intact, there are no obvious motor or sensory deficits. Coordination appears grossly intact. Speech is normal. Skin: Skin is warm and dry and no rashes or lesions are noted. - Labs CBC & Chem 7: 01/20/20 08:04 01/20/20 08:04 Labs: Abnormal Lab Results - Last 24 Hours (Table) 01/19/20 01/19/20 01/19/20 Range/Units 09:39 16:30 18:49 WBC (3.8-10.6) k/uL RBC (4.30-5.90) m/uL Hgb (13.0-17.5) gm/dL Hct (39.0-53.0) % Plt Count (150-450) k/uL APTT 70.9 H (22.0-30.0) sec Sodium (137-145) mmol/L Chloride (98-107) mmol/L Carbon Dioxide (22-30) mmol/L BUN (9-20) mg/dL Creatinine (0.66-1.25) mg/dL Glucose (74-99) mg/dL Calcium (8.4-10.2) mg/dL Troponin I 0.827 H* (0.000-0.034) ng/mL Urine Protein Trace H (Negative) Urine Blood Moderate H (Negative) Urine RBC 146 H (0-5) /hpf Urine Bacteria Occasional H (None) /hpf Urine Mucus Rare H (None) /hpf 01/20/20 01/20/20 01/20/20 Range/Units 01:40 08:04 08:04 WBC 10.7 H (3.8-10.6) k/uL RBC 3.05 L (4.30-5.90) m/uL Hgb 9.4 L D (13.0-17.5) gm/dL Hct 27.9 L (39.0-53.0) % Plt Count 124 L (150-450) k/uL APTT 50.6 H (22.0-30.0) sec Sodium 136 L (137-145) mmol/L Chloride 110 H (98-107) mmol/L Carbon Dioxide 19 L (22-30) mmol/L BUN 67 H (9-20) mg/dL Creatinine 3.73 H (0.66-1.25) mg/dL Glucose 124 H (74-99) mg/dL Calcium 7.6 L (8.4-10.2) mg/dL Troponin I (0.000-0.034) ng/mL Urine Protein (Negative) Urine Blood (Negative) Urine RBC (0-5) /hpf Urine Bacteria (None) /hpf Urine Mucus (None) /hpf Assessment and Plan (1) ARF (acute renal failure) Current Visit: Yes Status: Acute Code(s): N17.9 - ACUTE KIDNEY FAILURE, UNSPECIFIED SNOMED Code(s): 29611558 (2) Atrial fibrillation with RVR Current Visit: Yes Status: Acute Code(s): I48.91 - UNSPECIFIED ATRIAL FIBRILLATION SNOMED Code(s): 588160158633250 (3) Elevated troponin level Current Visit: Yes Status: Acute Code(s): R77.8 - OTHER SPECIFIED ABNORMALITIES OF PLASMA PROTEINS SNOMED Code(s): 541326079 (4) Acquired hypothyroidism Current Visit: Yes Status: Acute Code(s): E03.9 - HYPOTHYROIDISM, UNSPECIFIED SNOMED Code(s): 890694658 (5) Mixed hyperlipidemia Current Visit: Yes Status: Acute Code(s): E78.2 - MIXED HYPERLIPIDEMIA SNOMED Code(s): 085847725 (6) Essential (primary) hypertension Current Visit: Yes Status: Acute Code(s): I10 - ESSENTIAL (PRIMARY) HYPERTENSION SNOMED Code(s): 03764359 (7) Acute pulmonary edema Current Visit: Yes Status: Acute Code(s): J81.0 - ACUTE PULMONARY EDEMA SNOMED Code(s): 90492420 (8) H/O aortic valve replacement Current Visit: Yes Status: Acute Code(s): Z95.2 - PRESENCE OF PROSTHETIC HEART VALVE SNOMED Code(s): 2420829070249 (9) [employer] (current) use of anticoagulants Current Visit: Yes Status: Acute Code(s): Z79.01 - PLUSH BRUSHER (CURRENT) USE OF ANTICOAGULANTS SNOMED Code(s): 585839134 (10) Pneumonia Current Visit: Yes Status: Acute Code(s): J18.9 - PNEUMONIA, UNSPECIFIED ORGANISM SNOMED Code(s): 715961985 (11) Acute on chronic combined systolic (congestive) and diastolic (congestive) heart failure Current Visit: Yes Status: Acute Code(s): I50.43 - ACUTE ON CHRONIC COMBINED SYSTOLIC AND DIASTOLIC HRT FAIL SNOMED Code(s): 674100143604531 Plan: Wait on further recommendations from nephrology cardiology. Continue meropenem and vancomycin. Consults infectious disease about possible endocarditis and developing pneumonia repeat labs in am reevaluate in the next 24 hours
[2020-01-20 14:00] VITALS: BMI 22.7
--- NOTE | 2020-01-20 14:50 | P.PN ---
Subjective Progress Note Date: 01/20/20 CHIEF COMPLAINT: CHF HISTORY OF PRESENT ILLNESS: This is a 69-year old male with a past medical history significant for atrial fibrillation, coronary artery disease with previous CABG, aortic valve replacement, hypertension, and hyperlipidemia. Patient follows in the office with Dr. Onofre. We have been asked to see the patient in consultation for congestive heart failure. Patient examined this morning in the emergency room. Patient is a poor historian. He is unsure why he came to the emergency room. He states his family made him come in but he does not know why. Per nursing he was brought in by his family for weakness and shortness of breath. The patient currently denies chest pain or pressure. He denies shortness of breath. The patient was found to be in acute renal failure. Patient was also started on a Cardizem drip secondary to A. fib with uncontrolled ventricular rate. It is noted the patient was scheduled for a cardiac ablation with Dr. Tidwell next month. 01/21/20 Patient examined this morning at bedside. He denies chest pain or pressure. Denies shortness of breath. He remains on IV heparin drip. Echocardiogram reveals ejection fraction 45-50%, moderate aortic stenosis, moderate mitral regurgitation, cannot rule out vegetation. PHYSICAL EXAM: VITAL SIGNS: Reviewed. GENERAL: Well-developed in no acute distress. HEENT: Head is normocephalic. Pupils are equal, round. Sclerae anicteric. Mucous membranes of the mouth are moist. Neck supple. No JVD or thyromegaly LUNGS: Respirations even and unlabored. Lungs with crackles at left lung base HEART: Irregular rate and rhythm. S1 and S2 heard. Systolic murmur. ABDOMEN: Soft. Nondistended. Nontender. EXTREMITIES: Normal range of motion. No clubbing or cyanosis. Peripheral pulses intact. No lower extremity edema NEUROLOGIC: Awake and alert. Oriented x 2. ASSESSMENT: Acute renal failure Paroxysmal atrial fibrillation with RVR, on long-term anticoagulation with Eliquis Acute on chronic congestive heart failure, EF 45-50% Abnormal troponins, may be secondary to acute renal failure, no evidence of acute coronary syndrome History of aortic valve replacement, 2013 at [facility] Hypertension Hyperlipidemia History of nicotine dependence, in remission PLAN: Nephrology following Continue to hold Eliquis secondary to acute renal failure. Continue IV heparin Await results of blood cultures. If blood cultures are positive, will perform KRYSTAL Further recommendations pending patient's course Nurse practitioner note has been reviewed by physician. Signing provider agrees with the documented findings, assessment, and plan of care. Objective - Vital Signs Vital signs: Vital Signs Temp 98.1 F 01/20/20 12:35 Pulse 90 01/20/20 12:35 Resp 18 01/20/20 12:35 BP 112/72 01/20/20 12:35 Pulse Ox 96 01/20/20 12:35 Intake & Output 01/19/20 01/20/20 01/20/20 18:59 06:59 18:59 Intake Total 800 864.670 Output Total 868 Balance -68 864.670 Weight 90.718 kg 76 kg 76 kg Intake: Intake, IV Titration 800 114.670 Amount Heparin Sod,Pork in 0.45% 114.670 NaCl 25,000 unit In 0.45 % NaCl 1 250ml.bag @ 11 UNITS/KG/HR 9.979 mls/hr IV .Q24H NELLIE Rx#: [id number] Sodium Chloride 0.9% 1, 800 000 ml @ 100 mls/hr IV . Q10H NELLIE Rx#:[id number] Oral 750 Output: Urine 450 Uretheral (Rodriguez) 450 Post Void Residual 418 Other: Voiding Method Urinal Indwelling Catheter Indwelling Catheter Diaper # Voids 3 - Labs CBC & Chem 7: 01/20/20 08:04 01/20/20 08:04 Labs: Abnormal Lab Results - Last 24 Hours (Table) 01/19/20 01/19/20 01/20/20 Range/Units 16:30 18:49 01:40 WBC (3.8-10.6) k/uL RBC (4.30-5.90) m/uL Hgb (13.0-17.5) gm/dL Hct (39.0-53.0) % Plt Count (150-450) k/uL APTT 70.9 H 50.6 H (22.0-30.0) sec Sodium (137-145) mmol/L Chloride (98-107) mmol/L Carbon Dioxide (22-30) mmol/L BUN (9-20) mg/dL Creatinine (0.66-1.25) mg/dL Glucose (74-99) mg/dL Calcium (8.4-10.2) mg/dL Prealbumin (18.0-42.0) mg/dL Urine Protein Trace H (Negative) Urine Blood Moderate H (Negative) Urine RBC 146 H (0-5) /hpf Urine Bacteria Occasional H (None) /hpf Urine Mucus Rare H (None) /hpf 01/20/20 01/20/20 Range/Units 08:04 08:04 WBC 10.7 H (3.8-10.6) k/uL RBC 3.05 L (4.30-5.90) m/uL Hgb 9.4 L D (13.0-17.5) gm/dL Hct 27.9 L (39.0-53.0) % Plt Count 124 L (150-450) k/uL APTT (22.0-30.0) sec Sodium 136 L (137-145) mmol/L Chloride 110 H (98-107) mmol/L Carbon Dioxide 19 L (22-30) mmol/L BUN 67 H (9-20) mg/dL Creatinine 3.73 H (0.66-1.25) mg/dL Glucose 124 H (74-99) mg/dL Calcium 7.6 L (8.4-10.2) mg/dL Prealbumin 6.0 L (18.0-42.0) mg/dL Urine Protein (Negative) Urine Blood (Negative) Urine RBC (0-5) /hpf Urine Bacteria (None) /hpf Urine Mucus (None) /hpf Microbiology - Last 24 Hours (Table) 01/19/20 11:59 Blood Culture - Preliminary Blood No Growth after 24 hours
--- NOTE | 2020-01-20 15:02 | P.PN ---
Subjective Progress Note Date: 01/20/20 Follow-up for acute kidney injury. Objective - Vital Signs Vital signs: Vital Signs Temp 98.1 F 01/20/20 12:35 Pulse 90 01/20/20 12:35 Resp 18 01/20/20 14:00 BP 112/72 01/20/20 12:35 Pulse Ox 96 01/20/20 12:35 Intake & Output 01/19/20 01/20/20 01/20/20 18:59 06:59 18:59 Intake Total 800 864.670 Output Total 868 Balance -68 864.670 Weight 90.718 kg 76 kg 76 kg Intake: Intake, IV Titration 800 114.670 Amount Heparin Sod,Pork in 0.45% 114.670 NaCl 25,000 unit In 0.45 % NaCl 1 250ml.bag @ 11 UNITS/KG/HR 9.979 mls/hr IV .Q24H NELLIE Rx#: [id number] Sodium Chloride 0.9% 1, 800 000 ml @ 100 mls/hr IV . Q10H NELLIE Rx#:[id number] Oral 750 Output: Urine 450 Uretheral (Rodriguez) 450 Post Void Residual 418 Other: Voiding Method Urinal Indwelling Catheter Indwelling Catheter Diaper # Voids 3 - Exam No acute distress S1-S2 heard Decreased breath sounds No edema - Labs CBC & Chem 7: 01/20/20 08:04 01/20/20 08:04 Labs: Abnormal Lab Results - Last 24 Hours (Table) 01/19/20 01/19/20 01/20/20 Range/Units 16:30 18:49 01:40 WBC (3.8-10.6) k/uL RBC (4.30-5.90) m/uL Hgb (13.0-17.5) gm/dL Hct (39.0-53.0) % Plt Count (150-450) k/uL APTT 70.9 H 50.6 H (22.0-30.0) sec Sodium (137-145) mmol/L Chloride (98-107) mmol/L Carbon Dioxide (22-30) mmol/L BUN (9-20) mg/dL Creatinine (0.66-1.25) mg/dL Glucose (74-99) mg/dL Calcium (8.4-10.2) mg/dL Prealbumin (18.0-42.0) mg/dL Urine Protein Trace H (Negative) Urine Blood Moderate H (Negative) Urine RBC 146 H (0-5) /hpf Urine Bacteria Occasional H (None) /hpf Urine Mucus Rare H (None) /hpf 01/20/20 01/20/20 Range/Units 08:04 08:04 WBC 10.7 H (3.8-10.6) k/uL RBC 3.05 L (4.30-5.90) m/uL Hgb 9.4 L D (13.0-17.5) gm/dL Hct 27.9 L (39.0-53.0) % Plt Count 124 L (150-450) k/uL APTT (22.0-30.0) sec Sodium 136 L (137-145) mmol/L Chloride 110 H (98-107) mmol/L Carbon Dioxide 19 L (22-30) mmol/L BUN 67 H (9-20) mg/dL Creatinine 3.73 H (0.66-1.25) mg/dL Glucose 124 H (74-99) mg/dL Calcium 7.6 L (8.4-10.2) mg/dL Prealbumin 6.0 L (18.0-42.0) mg/dL Urine Protein (Negative) Urine Blood (Negative) Urine RBC (0-5) /hpf Urine Bacteria (None) /hpf Urine Mucus (None) /hpf Microbiology - Last 24 Hours (Table) 01/19/20 11:59 Blood Culture - Preliminary Blood No Growth after 24 hours Assessment and Plan Assessment: #1 acute kidney injury suspect ischemic ATN with hypotension. #2 chronic kidney disease stage III with a baseline creatinine of 1.4-1.6 MG per DL. #3 atrial fibrillation with RVR #4 hypotension suspect sepsis. #5 hematuria, suspect lower urinary tract. Doubt acute GN. #6 metabolic acidosis from acute kidney injury. Plan: #1 continue to hold home medications Lasix and Cozaar. Renal function improving. #2 status post 5.5 L of normal saline bolus. Continue with bicarb drip with metabolic acidosis. #3 strict ins and outs. #4 avoid nephrotoxic agents and hypotensive episodes.
[2020-01-20] MEDS ORDERED: VANCOMYCIN 1,500 MG in SODIUM CHLORIDE 0.9% 250 ML IVPB ONE (16:00)
--- NOTE | 2020-01-20 18:34 | US ---
EXAMINATION TYPE: US venous doppler duplex LE LT DATE OF EXAM: 01/20/2020 5:33 PM COMPARISON: NONE CLINICAL HISTORY: calf pain. SIDE PERFORMED: Left TECHNIQUE: The lower extremity deep venous system is examined utilizing real time linear array sonog kojo with graded compression, doppler sonography and color-flow sonography. VESSELS IMAGED: Common Femoral Vein Deep Femoral Vein Greater Saphenous Vein * Femoral Vein Popliteal Vein Small Saphenous Vein * Proximal Calf Veins (* superficial vessels) Left Leg: Negative for DVT IMPRESSION: No sign of deep vein thrombosis in the left leg.
[2020-01-20] MEDS: LEVOTHYROXINE 100 MCG TAB PO SCH (20:07)
[2020-01-20] MEDS: HEPARIN SOD,PORK IN 0.45% NACL 25,000 UNIT in 0.45% NACL 1 250ML.BAG IV SCH (21:52)
[2020-01-21 09:07] LABS: Basophils # (A) 0.1 k/uL (0-0.2); Basophils % (A) 1 %; Eosinophils # (A) 0.1 k/uL (0-0.7); Eosinophils % (A) 1 %; HCT 28.4 % (39.0-53.0); HGB 9.7 gm/dL (13.0-17.5); Lymphocytes # (A) 3.5 k/uL (1.0-4.8); Lymphocytes % (A) 35 %; MCH 31.1 pg (25.0-35.0); MCV 91.4 fL (80.0-100.0); Mean Platelet Volume 9.5; Monocytes # (A) 0.6 k/uL (0-1.0); Monocytes % (A) 6 %; Neutrophils # (A) 5.4 k/uL (1.3-7.7); Neutrophils % (A) 55 %; Platelet Count 129 k/uL (150-450); RBC 3.11 m/uL (4.30-5.90); RDW 14.2 % (11.5-15.5); WBC 9.8 k/uL (3.8-10.6)
[2020-01-21 09:52] LABS: Calcium 7.6 mg/dL (8.4-10.2); Potassium 3.9 mmol/L (3.5-5.1)
[2020-01-21 09:55] LABS: Vancomycin,Random 19.4 ug/mL
[2020-01-21] MEDS: MEROPENEM 1 GM in SODIUM CHLORIDE 0.9% 100 ML IVPB SCH ×2 (10:20→20:51)
[2020-01-21] MEDS: ATORVASTATIN 40 MG TAB PO SCH (10:20)
[2020-01-21] MEDS: METOPROLOL TARTRATE 25 MG TAB PO SCH ×2 (10:20→20:51)
[2020-01-21 10:32] LABS: Erythrocyte Sedimentation Rate 84 mm/hr (0-15)
[2020-01-21] MEDS: DEXTROSE 5% IN WATER 1,000 ML with SODIUM BICARB (1 MEQ/ML) 150 ML IV SCH (11:44)
[2020-01-21] MEDS ORDERED: VANCOMYCIN 1,500 MG in SODIUM CHLORIDE 0.9% 250 ML IVPB ONE (12:00)
--- NOTE | 2020-01-21 12:11 | XR ---
EXAMINATION TYPE: XR chest 2V DATE OF EXAM: 01/21/2020 COMPARISON: 01/20/2020 HISTORY: 69-year-old male pneumonia TECHNIQUE: AP and lateral views FINDINGS: Heart is mildly enlarged. Median sternotomy wires. Diffuse interstitial opacities. More focal patchy right basilar and posterior basilar opacities along with small effusions. IMPRESSION: 1. Correlate for CHF with mild interstitial pulmonary edema. 2. Small effusions with adjacent atelectasis and/or consolidation. 3. Opacity is slightly more confluent at the right base and could represent an area of more confluent pulmonary edema versus infiltrate.
--- NOTE | 2020-01-21 15:12 | P.PN ---
Subjective Patient is seen in follow-up for acute kidney injury on chronic kidney disease. Renal function improving. Currently maintained on bicarb drip. Oral intake fair. Nonoliguric. No chest pain or shortness breath. Vital signs are stable. General: The patient appeared well nourished and normally developed. HEENT: Head exam is unremarkable. Neck is without jugular venous distension. LUNGS: Breath sounds decreased. HEART: Rate and Rhythm are regular. ABDOMEN: Soft, nontender. EXTREMITITES: No edema. Objective - Vital Signs Vital signs: Vital Signs Temp 98.5 F 01/21/20 11:45 Pulse 69 01/21/20 11:45 Resp 18 01/21/20 11:45 BP 117/75 01/21/20 11:45 Pulse Ox 98 01/21/20 11:45 Intake & Output 01/20/20 01/21/20 01/21/20 18:59 06:59 18:59 Intake Total 272.390 4690.002 233.63 Output Total 1280 Balance 159.328 -211.998 233.63 Weight 76 kg Intake: IV 72 Heparin Sod,Pork in 0.45% 72 NaCl 25,000 unit In 0.45 % NaCl 1 250ml.bag @ 11 UNITS/KG/HR 9.979 mls/hr IV .Q24H NELLIE Rx#: [id number] Intake, IV Titration 39.328 996.002 113.63 Amount Dextrose 5% in Water 1, 800 000 ml @ 100 mls/hr IV . [id number] NELLIE with Sodium Bicarb (1 Meq/ml) 150 ml Rx#:[id number] Heparin Sod,Pork in 0.45% 39.328 96.002 113.63 NaCl 25,000 unit In 0.45 % NaCl 1 250ml.bag @ 11 UNITS/KG/HR 9.979 mls/hr IV .Q24H NELLIE Rx#: [id number] Meropenem 1 gm In Sodium 100 Chloride 0.9% 100 ml @ 33 .3 mls/hr IVPB Q12H NELLIE Rx#:[id number] Oral 120 120 Output: Urine 1280 Other: Voiding Method Indwelling Catheter Indwelling Catheter Indwelling Catheter - Labs CBC & Chem 7: 01/21/20 08:44 01/21/20 08:44 Labs: Abnormal Lab Results - Last 24 Hours (Table) 01/21/20 01/21/20 01/21/20 Range/Units 08:44 08:44 08:44 RBC 3.11 L (4.30-5.90) m/uL Hgb 9.7 L (13.0-17.5) gm/dL Hct 28.4 L (39.0-53.0) % Plt Count 129 L (150-450) k/uL ESR 84 H (0-15) mm/hr APTT 39.7 H (22.0-30.0) sec Sodium 133 L (137-145) mmol/L BUN 61 H (9-20) mg/dL Creatinine 3.12 H (0.66-1.25) mg/dL Glucose 134 H (74-99) mg/dL Calcium 7.6 L (8.4-10.2) mg/dL C-Reactive Protein 39.0 H (<10.0) mg/L Microbiology - Last 24 Hours (Table) 01/19/20 11:59 Blood Culture - Preliminary Blood No Growth after 48 hours 01/20/20 11:04 Blood Culture - Preliminary Blood No Growth after 24 hours 01/19/20 18:56 Blood Culture - Preliminary Blood No Growth after 24 hours Assessment and Plan Plan: Assessment: 1. Acute kidney injury mostly prerenal secondary to hypotension, improving with IV hydration. Creatinine was 4.97 on admission and is 3.12 today. 2. Chronic kidney disease stage III with baseline creatinine in the range of 1.4-1.6 secondary to nephrosclerosis. 3. Metabolic acidosis secondary to acute kidney injury maintained on bicarb drip. 4. A. fib with RVR. Now rate controlled. Maintained on heparin drip. 5. Chronic systolic CHF with ejection fraction of 45-50%. 6. Pneumonia maintained on antibiotics. Endocarditis being ruled out. Plan: Stop bicarb drip. Start normal saline at 50 mL an hour. Encouraged oral intake. Monitor vancomycin levels. Dose to be adjusted for renal function. Repeat electrolytes in the morning.
--- NOTE | 2020-01-21 15:19 | P.PN ---
Subjective Progress Note Date: 01/21/20 This is a 69 y/o male with h/o Hypothyroiodism, Afib, hypertension,and Hyperlipidemia who presented to [facility] ER with ftaigue. He was found to be in acute renal failure based on lab studies. He has been fluid recusitated somewhat. he appears to have some Acute CHF as well based on Xray findings. This am he developed AFIB with RVR and is now on Cardizem drip. he denies any Chest pain, pressure, SOB, nausea, vomiting or dysuria.He denies NSAID use as he is on LT anticoagulation 01/20/2020: Patient is still complaining of fatigue, but denies any chest pain pressure shortness breath at this time. He does have shortness of breath with exertion. A 2-D echo ordered by cardiology showed a questionable to the aortic valve. EF was 45-50%. There is moderate mitral regurgitation, moderate aortic stenosis, grade 2 diastolic dysfunction, mild mitral stenosis and mild tricuspid regurgitation. Nephrology diagnosed him with acute knee injury possibly ischemic ATN with hypotension. There are concerns regarding sepsis, however his lactic acid is been negative 2. Blood cultures are pending. Patient is currently on meropenem and vancomycin. He's been started on bicarbonate drip for metabolic acidosis. THE KIDNEY AND BLADDER WERE SUBOPTIMAL, BUT FAILED TO SHOW ANY HYDRONEPHROSIS. NO CONCERNING MASSES WERE SEEN. Chest x-ray this a.m. shows developing left basilar acute infiltrate and/or atelectasis. Suspect worsening CHF exacerbation. MAXIMUM TEMPERATURE overnight is 100.5 as of 1700. Blood pressures remained stable. 01/21/2020 continues on bicarb drip, bicarb uo to 23. Creatinine improving, down to 3.2. Eliquis on hold, anticoagulated on heparin drip. Hemoglobin 9.7, platelets 129. Afebrile, T-max 100.2, WBC 9.8 ,blood cultures remain negative at 24 hours. Denies chest pain, palpitations. Maintaining O2 sats in the 90s on 3 L nasal cannula. Chest x-ray completed , results pending. Objective - Vital Signs Vital signs: Vital Signs Temp 98.1 F 01/21/20 09:40 Pulse 61 01/21/20 09:40 Resp 18 01/21/20 09:40 BP 99/61 01/21/20 09:40 Pulse Ox 97 01/21/20 09:40 Intake & Output 01/20/20 01/21/20 01/21/20 18:59 06:59 18:59 Intake Total 402.932 1656.002 120 Output Total 1280 Balance 159.328 -211.998 120 Weight 76 kg Intake: IV 72 Heparin Sod,Pork in 0.45% 72 NaCl 25,000 unit In 0.45 % NaCl 1 250ml.bag @ 11 UNITS/KG/HR 9.979 mls/hr IV .Q24H NELLIE Rx#: [id number] Intake, IV Titration 39.328 996.002 Amount Dextrose 5% in Water 1, 800 000 ml @ 100 mls/hr IV . [id number] NELLIE with Sodium Bicarb (1 Meq/ml) 150 ml Rx#:[id number] Heparin Sod,Pork in 0.45% 39.328 96.002 NaCl 25,000 unit In 0.45 % NaCl 1 250ml.bag @ 11 UNITS/KG/HR 9.979 mls/hr IV .Q24H NELLIE Rx#: [id number] Meropenem 1 gm In Sodium 100 Chloride 0.9% 100 ml @ 33 .3 mls/hr IVPB Q12H NELLIE Rx#:[id number] Oral 120 120 Output: Urine 1280 Other: Voiding Method Indwelling Catheter Indwelling Catheter Indwelling Catheter - Exam General: Lying in bed , alert and oriented 3, no acute distress, fatigued Neck: The neck is supple, there is no thyromegaly, lymphadenopathy, tenderness or JVD. Cardiovascular: S1S2 is normal, There is a regular rate and rhythm. No rub or gallop is appreciated. 1/6 systolic murmur over the right sternal border Respiratory: Lungs are coarse with bibasilar crackles Gastrointestinal: Soft, non-distended, non-tender abdomen without masses or organomegaly noted. There is no rebound or guarding present. Positive Bowel sounds. Musculoskeletal: Normal ROM, no tenderness, There is no pedal edema. There is no calf tenderness or swelling. Neurological: CN II-XII intact, there are no obvious motor or sensory deficits. Coordination appears grossly intact. Speech is normal. Skin: Skin is warm and dry and no rashes are noted. - Labs CBC & Chem 7: 01/21/20 08:44 01/21/20 08:44 Labs: Abnormal Lab Results - Last 24 Hours (Table) 01/20/20 01/21/20 01/21/20 Range/Units 08:04 08:44 08:44 RBC 3.11 L (4.30-5.90) m/uL Hgb 9.7 L (13.0-17.5) gm/dL Hct 28.4 L (39.0-53.0) % Plt Count 129 L (150-450) k/uL ESR 84 H (0-15) mm/hr APTT 39.7 H (22.0-30.0) sec Sodium (137-145) mmol/L BUN (9-20) mg/dL Creatinine (0.66-1.25) mg/dL Glucose (74-99) mg/dL Calcium (8.4-10.2) mg/dL C-Reactive Protein (<10.0) mg/L Prealbumin 6.0 L (18.0-42.0) mg/dL 01/21/20 Range/Units 08:44 RBC (4.30-5.90) m/uL Hgb (13.0-17.5) gm/dL Hct (39.0-53.0) % Plt Count (150-450) k/uL ESR (0-15) mm/hr APTT (22.0-30.0) sec Sodium 133 L (137-145) mmol/L BUN 61 H (9-20) mg/dL Creatinine 3.12 H (0.66-1.25) mg/dL Glucose 134 H (74-99) mg/dL Calcium 7.6 L (8.4-10.2) mg/dL C-Reactive Protein 39.0 H (<10.0) mg/L Prealbumin (18.0-42.0) mg/dL Microbiology - Last 24 Hours (Table) 01/19/20 18:56 Blood Culture - Preliminary Blood No Growth after 24 hours 01/19/20 11:59 Blood Culture - Preliminary Blood No Growth after 24 hours Assessment and Plan Assessment: (1) ARF (acute renal failure) Current Visit: Yes Status: Acute Code(s): N17.9 - ACUTE KIDNEY FAILURE, UNSPECIFIED SNOMED Code(s): 31640926 (2) Atrial fibrillation with RVR Current Visit: Yes Status: Acute Code(s): I48.91 - UNSPECIFIED ATRIAL FIBRILLATION SNOMED Code(s): 795607802059634 (3) Elevated troponin level, possibly related to acute renal failure, not acute coronary syndrome as per cardiology Current Visit: Yes Status: Acute Code(s): R77.8 - OTHER SPECIFIED ABNORMALITIES OF PLASMA PROTEINS SNOMED Code(s): 616713740 (4) Acquired hypothyroidism Current Visit: Yes Status: Acute Code(s): E03.9 - HYPOTHYROIDISM, UNSPEC IFIED SNOMED Code(s): 092883896 (5) Mixed hyperlipidemia Current Visit: Yes Status: Acute Code(s): E78.2 - MIXED HYPERLIPIDEMIA SNOMED Code(s): 713826983 (6) Essential (primary) hypertension Current Visit: Yes Status: Acute Code(s): I10 - ESSENTIAL (PRIMARY) HYPERTENSION SNOMED Code(s): 94761805 (7) Acute pulmonary edema Current Visit: Yes Status: Acute Code(s): J81.0 - ACUTE PULMONARY EDEMA SNOMED Code(s): 21212310 (8) H/O aortic valve replacement Current Visit: Yes Status: Acute Code(s): Z95.2 - PRESENCE OF PROSTHETIC HEART VALVE SNOMED Code(s): 2280021003425 (9) 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 Preliminary blood cultures negative. consult in place for infectious disease regarding potential endocarditis/pneumonia. Antibiotics as per ID. Chest x-ray pending. Close monitoring of renal function, electrolytes with repeat labs ordered for a.m. The impression and plan of care has been dictated as directed. : I performed a history and examination of this patient, discussed the same with the dictator. I agree with the dictator's note ,documented as a scribe. Any additional findings or plans will be noted.
[2020-01-21] MEDS: HEPARIN SOD,PORK IN 0.45% NACL 25,000 UNIT in 0.45% NACL 1 250ML.BAG IV SCH ×2 (16:10→20:00)
[2020-01-21] MEDS: SODIUM CHLORIDE 0.9% 1,000 ML IV SCH (16:13)
--- NOTE | 2020-01-21 17:24 | P.PN ---
Subjective Progress Note Date: 01/21/20 This is a 69-year-old gentleman with history of a previous aortic valve replacement was admitted to the hospital with acute renal failure. This was felt to be secondary to hypotension and not eating well. Patient has been on hydration and also bicarb infusion. His renal function is improving. The possi bility of sepsis or endocarditis was considered. Patient's blood cultures so far have been negative. Temperature has been normal. Echo Cardigan showed some thickening of the right probably reflects and questionable vegetation. Based on negative. Blood cultures and lack of fever or white count elevation, I doubt that patient has underlying endocarditis at this time. Continue current management. Continue to monitor renal functions. Further recommendation will depend upon clinical course. If necessary, a KRYSTAL will be considered and that will be done by Dr. Onofre Objective - Vital Signs Vital signs: Vital Signs Temp 98.1 F 01/21/20 16:10 Pulse 74 01/21/20 16:10 Resp 18 01/21/20 16:10 BP 93/63 01/21/20 16:10 Pulse Ox 97 01/21/20 16:10 Intake & Output 01/20/20 01/21/20 01/21/20 18:59 06:59 18:59 Intake Total 054.312 1099.002 469.63 Output Total 1280 Balance 159.328 -211.998 469.63 Weight 76 kg Intake: IV 72 Heparin Sod,Pork in 0.45% 72 NaCl 25,000 unit In 0.45 % NaCl 1 250ml.bag @ 11 UNITS/KG/HR 9.979 mls/hr IV .Q24H NELLIE Rx#: [id number] Intake, IV Titration 39.328 996.002 113.63 Amount Dextrose 5% in Water 1, 800 000 ml @ 100 mls/hr IV . [id number] NELLIE with Sodium Bicarb (1 Meq/ml) 150 ml Rx#:[id number] Heparin Sod,Pork in 0.45% 39.328 96.002 113.63 NaCl 25,000 unit In 0.45 % NaCl 1 250ml.bag @ 11 UNITS/KG/HR 9.979 mls/hr IV .Q24H NELLIE Rx#: [id number] Meropenem 1 gm In Sodium 100 Chloride 0.9% 100 ml @ 33 .3 mls/hr IVPB Q12H NELLIE Rx#:[id number] Oral 120 356 Output: Urine 1280 Other: Voiding Method Indwelling Catheter Indwelling Catheter Indwelling Catheter # Voids 0 - Exam GENERAL EXAM: Patient is alert and oriented and doesn't appear to be in any acute distress HEENT: Normocephalic. Normal reaction of pupils, equal size, normal range of extraocular motion. No erythema or exudates in the throat. NECK: No masses, no nuchal rigidity. CHEST: No chest wall deformity. LUNGS: Equal air entry with no crackles or wheeze. HEART: S1 and S2 normal with no audible mumurs or gallops. Irregular rhythm ABDOMEN: No hepatosplenomegaly, normal bowel sounds, no guarding or rigidity. SKIN: No rashes CENTRAL NERVOUS SYSTEM: No focal deficits. EXTREMITIES: No cyanosis, clubbing or edema. - Labs CBC & Chem 7: 01/21/20 08:44 01/21/20 08:44 Labs: Abnormal Lab Results - Last 24 Hours (Table) 01/21/20 01/21/20 01/21/20 Range/Units 08:44 08:44 08:44 RBC 3.11 L (4.30-5.90) m/uL Hgb 9.7 L (13.0-17.5) gm/dL Hct 28.4 L (39.0-53.0) % Plt Count 129 L (150-450) k/uL ESR 84 H (0-15) mm/hr APTT 39.7 H (22.0-30.0) sec Sodium 133 L (137-145) mmol/L BUN 61 H (9-20) mg/dL Creatinine 3.12 H (0.66-1.25) mg/dL Glucose 134 H (74-99) mg/dL Calcium 7.6 L (8.4-10.2) mg/dL C-Reactive Protein 39.0 H (<10.0) mg/L Procalcitonin (0.02-0.09) ng/mL 01/21/20 Range/Units 08:44 RBC (4.30-5.90) m/uL Hgb (13.0-17.5) gm/dL Hct (39.0-53.0) % Plt Count (150-450) k/uL ESR (0-15) mm/hr APTT (22.0-30.0) sec Sodium (137-145) mmol/L BUN (9-20) mg/dL Creatinine (0.66-1.25) mg/dL Glucose (74-99) mg/dL Calcium (8.4-10.2) mg/dL C-Reactive Protein (<10.0) mg/L Procalcitonin 0.72 H (0.02-0.09) ng/mL Microbiology - Last 24 Hours (Table) 01/19/20 11:59 Blood Culture - Preliminary Blood No Growth after 48 hours 01/20/20 11:04 Blood Culture - Preliminary Blood No Growth after 24 hours 01/19/20 18:56 Blood Culture - Preliminary Blood No Growth after 24 hours Assessment and Plan (1) Chronic atrial fibrillation Current Visit: Yes Status: Acute Code(s): I48.20 - CHRONIC ATRIAL FIBRILLATION, UNSPECIFIED SNOMED Code(s): 167597349 (2) ARF (acute renal failure) Current Visit: Yes Status: Acute Code(s): N17.9 - ACUTE KIDNEY FAILURE, UNSPECIFIED SNOMED Code(s): 11638723 (3) History of aortic valve replacement Current Visit: Yes Status: Acute Code(s): Z95.2 - PRESENCE OF PROSTHETIC HEART VALVE SNOMED Code(s): 6789040022274 (4) CAD (coronary artery disease) Current Visit: Yes Status: Acute Code(s): I25.10 - ATHSCL HEART DISEASE OF [place] CORONARY ARTERY W/O ANG PCTRS SNOMED Code(s): 90441185 Plan: Patient's renal status is improving. Patient had abnormal troponin values which could be possibly because of the renal failure. Echocardiogram showed ejection fraction about 45-50% with inferior wall hypokinesia and atypical motion of the septum which is related to left bundle branch block. At this point, no aggressive cardiac workup is suggested. We'll continue to monitor his clinical course and also renal function
[2020-01-21] MEDS: LEVOTHYROXINE 100 MCG TAB PO SCH (20:51)
[2020-01-21] MEDS: PIPERACILLIN-TAZOBACTAM 3.375 GM in SODIUM CHLORIDE 0.9% 100 ML IVPB SCH (23:19)
--- NOTE | 2020-01-21 23:27 | PN ---
PROGRESS NOTE DATE OF SERVICE: 01/21/2020 REASON FOR FOLLOWUP: Fever and a question of endocarditis. INTERVAL HISTORY: The patient is currently afebrile. He is complaining of feeling weak and tired and no energy. He did have minimal cough, not bringing up any sputum. No chest pain. No abdominal pain. No diarrhea. PHYSICAL EXAMINATION: Blood pressure this is 133/74 with a pulse of 101, temperature 98.1. He is 96% on 2 L nasal cannula. General description is an elderly male lying in bed in no distress. RESPIRATORY SYSTEM: Unlabored breathing with decreased breath sounds at the bases. No wheeze. HEART: S1, S2. Regular rate and rhythm. ABDOMEN: Soft, no tenderness. LABS: BUN of 61, creatinine 3.12, hemoglobin 9.7, white count normalized to 9.8. Admission white count of 12.8. Sed rate of 84. Urine negative. Blood culture so far negative. DIAGNOSTIC IMPRESSION AND PLAN: Patient admitted to the hospital with generalized weakness. He also has hypoxemia on presentation to the hospital with renal failure and a low-grade fever. Abnormal echo with thickened aortic wall. The patient is clinically not behaving as endocarditis, though not entirely excluded and may benefit from a transesophageal echocardiogram for more definitive diagnosis with concern mostly for a right lower lobe pneumonia, possible aspiration. Antibiotic will be adjusted to Zosyn. Discontinue the vancomycin to decrease risk of nephrotoxicity and monitor his clinical course closely. MMODL / IJN: [id number] /
[2020-01-22 07:56] LABS: Basophils # (A) 0.1 k/uL (0-0.2); Basophils % (A) 0 %; Eosinophils # (A) 0.1 k/uL (0-0.7); Eosinophils % (A) 1 %; HCT 29.3 % (39.0-53.0); HGB 9.8 gm/dL (13.0-17.5); Lymphocytes # (A) 4.4 k/uL (1.0-4.8); Lymphocytes % (A) 41 %; MCH 30.8 pg (25.0-35.0); MCHC 33.3 g/dL (31.0-37.0); MCV 92.5 fL (80.0-100.0); Mean Platelet Volume 9.6; Monocytes # (A) 0.6 k/uL (0-1.0); Monocytes % (A) 6 %; Neutrophils # (A) 5.4 k/uL (1.3-7.7); Neutrophils % (A) 49 %; Platelet Count 132 k/uL (150-450); RBC 3.17 m/uL (4.30-5.90); RDW 14.3 % (11.5-15.5); WBC 10.8 k/uL (3.8-10.6)
[2020-01-22 09:24] LABS: Calcium 7.7 mg/dL (8.4-10.2); Magnesium 1.9 mg/dL (1.6-2.3); Potassium 4.1 mmol/L (3.5-5.1)
[2020-01-22 09:29] LABS: Vancomycin,Random 25.2 ug/mL
--- NOTE | 2020-01-22 09:50 | P.PN ---
Subjective Progress Note Date: 01/22/20 This is a 69-year-old gentleman with past medical history significant for paroxysmal atrial fibrillation, on Eliquis for anticoagulation, coronary artery disease with prior bypass surgery, aortic valve replacement, hypertension, hyperlipidemia, he follows regularly with Dr. Onofre in the office. Presented to the hospital in acute renal failure. Patient was noted to have abnormality in troponin, not consistent with acute coronary syndrome. An echocardiogram with Doppler study was performed which revealed an ejection fraction of 45-50%, moderate mitral regurgitation, moderate aortic stenosis. Patient was seen and examined this morning, sitting up in his chair at bedside, he does state that he still feels mildly short of breath but overall better. Chin used to be somewhat confused this morning. Poor appetite. Blood pressure 118/60 with a heart rate of 90, 97% on room air. White blood cell count 10.8, hemoglobin 9.8, platelet count 132. Sodium 133, potassium 4.1, BUN 55, creatin ine 3.0. We will discontinue the IV heparin today and resume the patient's Eliquis. Objective - Vital Signs Vital signs: Vital Signs Temp 97.6 F 01/22/20 03:52 Pulse 97 01/22/20 03:52 Resp 17 01/22/20 03:52 BP 118/59 01/22/20 03:52 Pulse Ox 97 01/22/20 03:52 Intake & Output 01/21/20 01/22/20 01/22/20 18:59 06:59 18:59 Intake Total 469.63 661.994 Output Total 1000 Balance 469.63 -338.006 Weight 47.5 kg Intake: Intake, IV Titration 113.63 181.994 Amount Heparin Sod,Pork in 0.45% 113.63 81.994 NaCl 25,000 unit In 0.45 % NaCl 1 250ml.bag @ 11 UNITS/KG/HR 9.979 mls/hr IV .Q24H NELLIE Rx#: [id number] Piperacillin-Tazobactam 3 100 .375 gm In Sodium Chloride 0.9% 100 ml @ 25 mls/hr IVPB Q8HR NELLIE Rx# :[id number] Oral 356 480 Output: Urine 1000 Other: Voiding Method Indwelling Catheter Indwelling Catheter # Voids 0 0 # Bowel Movements 0 - Exam PHYSICAL EXAMINATION: GENERAL: 69-year-old gentleman in no acute distress at the time of my examination HEENT: Head is atraumatic, normocephalic. Pupils equal, round. Sclera anicteric. Conjunctiva are clear. Mucous membranes of the mouth are moist. Nec k is supple. There is no elevated jugular venous pressure. No carotid bruit is heard. HEART EXAMINATION: Heart S1 and S2 irregularly irregular a systolic murmur is heard CHEST EXAMINATION: Lungs are clear to auscultation and precussion. No chest wall tenderness is noted on palpation or with deep breathing. ABDOMEN: Soft, nontender. Bowel sounds are heard. No organomegaly noted. EXTREMITIES: 2+ peripheral pulses with no evidence of peripheral edema and no calf tenderness noted. NEUROLOGIC patient is awake, alert and oriented 2 . . - Labs CBC & Chem 7: 01/22/20 07:40 01/22/20 07:40 Labs: Abnormal Lab Results - Last 24 Hours (Table) 01/21/20 01/21/20 01/21/20 Range/Units 08:44 08:44 08:44 WBC (3.8-10.6) k/uL RBC (4.30-5.90) m/uL Hgb (13.0-17.5) gm/dL Hct (39.0-53.0) % Plt Count (150-450) k/uL ESR 84 H (0-15) mm/hr APTT (22.0-30.0) sec Sodium 133 L (137-145) mmol/L BUN 61 H (9-20) mg/dL Creatinine 3.12 H (0.66-1.25) mg/dL Glucose 134 H (74-99) mg/dL Calcium 7.6 L (8.4-10.2) mg/dL C-Reactive Protein 39.0 H (<10.0) mg/L Procalcitonin 0.72 H (0.02-0.09) ng/mL 01/21/20 01/22/20 01/22/20 Range/Units 20:05 07:40 07:40 WBC 10.8 H (3.8-10.6) k/uL RBC 3.17 L (4.30-5.90) m/uL Hgb 9.8 L (13.0-17.5) gm/dL Hct 29.3 L (39.0-53.0) % Plt Count 132 L (150-450) k/uL ESR (0-15) mm/hr APTT 48.3 H (22.0-30.0) sec Sodium 133 L (137-145) mmol/L BUN 55 H (9-20) mg/dL Creatinine 3.08 H (0.66-1.25) mg/dL Glucose 111 H (74-99) mg/dL Calcium 7.7 L (8.4-10.2) mg/dL C-Reactive Protein (<10.0) mg/L Procalcitonin (0.02-0.09) ng/mL Microbiology - Last 24 Hours (Table) 01/19/20 18:56 Blood Culture - Preliminary Blood No Growth after 48 hours 01/19/20 11:59 Blood Culture - Preliminary Blood No Growth after 48 hours 01/20/20 11:04 Blood Culture - Preliminary Blood No Growth after 24 hours Assessment and Plan Plan: Assessment and plan #1 acute renal failure #2 abnormality in troponin, not chest with acute coronary syndrome, likely secondary to acute renal failure #3 paroxysmal atrial fibrillation, we will resume the patient's Eliquis ,lower the dose to 2-1/2 twice a day #4 history of aortic valve replacement #5 hypertension #6 hyperlipidemia #7 history of nicotine dependence Plan From cardiology's perspective, we'll discontinue the IV heparin and resume the Eliquis, at 2-1/2 twice a day because of the renal function, and patient's weight. DNP note has been reviewed, I agree with a documented findings and plan of care. Patient was seen and examined.
[2020-01-22] MEDS ORDERED: APIXABAN 5 MG TAB PO SCH (10:00)
[2020-01-22] MEDS: PIPERACILLIN-TAZOBACTAM 3.375 GM in SODIUM CHLORIDE 0.9% 100 ML IVPB SCH ×2 (10:31→20:17)
[2020-01-22] MEDS: METOPROLOL TARTRATE 25 MG TAB PO SCH ×2 (10:31→20:16)
[2020-01-22] MEDS: ATORVASTATIN 40 MG TAB PO SCH (10:33)
[2020-01-22] MEDS: SODIUM CHLORIDE 0.9% 1,000 ML IV SCH (11:09)
--- NOTE | 2020-01-22 12:48 | P.PN ---
Subjective Patient is seen in follow-up for acute kidney injury on chronic kidney disease. Renal function stable. Currently maintained on normal saline. Oral intake fair. Nonoliguric. Has a Rodriguez catheter. No chest pain or shortness breath. Vital signs are stable. General: The patient appeared well nourished and normally developed. HEENT: Head exam is unremarkable. Neck is without jugular venous distension. LUNGS: Breath sounds decreased. HEART: Rate and Rhythm are regular. ABDOMEN: Soft, nontender. EXTREMITITES: No edema. Objective - Vital Signs Vital signs: Vital Signs Temp 97.6 F 01/22/20 03:52 Pulse 97 01/22/20 03:52 Resp 17 01/22/20 03:52 BP 118/59 01/22/20 03:52 Pulse Ox 97 01/22/20 03:52 Intake & Output 01/21/20 01/22/20 01/22/20 18:59 06:59 18:59 Intake Total 469.63 661.994 Output Total 1000 Balance 469.63 -338.006 Weight 47.5 kg Intake: Intake, IV Titration 113.63 181.994 Amount Heparin Sod,Pork in 0.45% 113.63 81.994 NaCl 25,000 unit In 0.45 % NaCl 1 250ml.bag @ 11 UNITS/KG/HR 9.979 mls/hr IV .Q24H NELLIE Rx#: [id number] Piperacillin-Tazobactam 3 100 .375 gm In Sodium Chloride 0.9% 100 ml @ 25 mls/hr IVPB Q8HR NELLIE Rx# :[id number] Oral 356 480 Output: Urine 1000 Other: Voiding Method Indwelling Catheter Indwelling Catheter # Voids 0 0 # Bowel Movements 0 - Labs CBC & Chem 7: 01/22/20 07:40 01/22/20 07:40 Labs: Abnormal Lab Results - Last 24 Hours (Table) 01/21/20 01/21/20 01/22/20 Range/Units 08:44 20:05 07:40 WBC 10.8 H (3.8-10.6) k/uL RBC 3.17 L (4.30-5.90) m/uL Hgb 9.8 L (13.0-17.5) gm/dL Hct 29.3 L (39.0-53.0) % Plt Count 132 L (150-450) k/uL APTT 48.3 H (22.0-30.0) sec Sodium (137-145) mmol/L BUN (9-20) mg/dL Creatinine (0.66-1.25) mg/dL Glucose (74-99) mg/dL Calcium (8.4-10.2) mg/dL Procalcitonin 0.72 H (0.02-0.09) ng/mL 01/22/20 Range/Units 07:40 WBC (3.8-10.6) k/uL RBC (4.30-5.90) m/uL Hgb (13.0-17.5) gm/dL Hct (39.0-53.0) % Plt Count (150-450) k/uL APTT (22.0-30.0) sec Sodium 133 L (137-145) mmol/L BUN 55 H (9-20) mg/dL Creatinine 3.08 H (0.66-1.25) mg/dL Glucose 111 H (74-99) mg/dL Calcium 7.7 L (8.4-10.2) mg/dL Procalcitonin (0.02-0.09) ng/mL Microbiology - Last 24 Hours (Table) 01/19/20 18:56 Blood Culture - Preliminary Blood No Growth after 48 hours 01/19/20 11:59 Blood Culture - Preliminary Blood No Growth after 48 hours 01/20/20 11:04 Blood Culture - Preliminary Blood No Growth after 24 hours Assessment and Plan Plan: Assessment: 1. Acute kidney injury mostly prerenal secondary to hypotension, improving with IV hydration. Creatinine was 4.97 on admission and is 3.08 today. Trace proteinuria on UA. No hydronephrosis noted on kidney ultrasound. 2. Chronic kidney disease stage III with baseline creatinine in the range of 1.4-1.6 secondary to nephrosclerosis. 3. Metabolic acidosis secondary to acute kidney injury s/p bicarb drip. 4. A. fib with RVR. Now rate controlled. Maintained on Lopressor and anticoagulation. 5. Chronic systolic CHF with ejection fraction of 45-50%. 6. Pneumonia maintained on antibiotics. ?Endocarditis. Infectious disease following. Plan: Continue normal saline at 50 mL an hour. Encouraged oral intake. Vancomycin discontinued. Repeat electrolytes in the morning. Repeat urinalysis.
--- NOTE | 2020-01-22 15:22 | P.PN ---
Subjective Progress Note Date: 01/22/20 This is a 69 y/o male with h/o Hypothyroiodism, Afib, hypertension,and Hyperlipidemia who presented to [facility] ER with ftaigue. He was found to be in acute renal failure based on lab studies. He has been fluid recusitated somewhat. he appears to have some Acute CHF as well based on Xray findings. This am he developed AFIB with RVR and is now on Cardizem drip. he denies any Chest pain, pressure, SOB, nausea, vomiting or dysuria.He denies NSAID use as he is on LT anticoagulation 01/20/2020: Patient is still complaining of fatigue, but denies any chest pain pressure shortness breath at this time. He does have shortness of breath with exertion. A 2-D echo ordered by cardiology showed a questionable to the aortic valve. EF was 45-50%. There is moderate mitral regurgitation, moderate aortic stenosis, grade 2 diastolic dysfunction, mild mitral stenosis and mild tricuspid regurgitation. Nephrology diagnosed him with acute knee injury possibly ischemic ATN with hypotension. There are concerns regarding sepsis, however his lactic acid is been negative 2. Blood cultures are pending. Patient is currently on meropenem and vancomycin. He's been started on bicarbonate drip for metabolic acidosis. THE KIDNEY AND BLADDER WERE SUBOPTIMAL, BUT FAILED TO SHOW ANY HYDRONEPHROSIS. NO CONCERNING MASSES WERE SEEN. Chest x-ray this a.m. shows developing left basilar acute infiltrate and/or atelectasis. Suspect worsening CHF exacerbation. MAXIMUM TEMPERATURE overnight is 100.5 as of 1700. Blood pressures remained stable. 01/21/2020 continues on bicarb drip, bicarb uo to 23. Creatinine improving, down to 3.2. Eliquis on hold, anticoagulated on heparin drip. Hemoglobin 9.7, platelets 129. Afebrile, T-max 100.2, WBC 9.8 ,blood cultures remain negative at 24 hours. Denies chest pain, palpitations. Maintaining O2 sats in the 90s on 3 L nasal cannula. Chest x-ray completed , results pending. 01/22/2020 bicarb drip discontinued yesterday,maintained on IV fluid hydration of normal saline. Chest x-ray yesterday reporting more focal opacity right basilar and posterior basilar opacity's along with small effusions. Maintaining O2 sats in the low 90s on room air. Vancomycin discontinued, Zosyn initiated.Renal function continues to trend down. Currently anticoagulated on heparin drip. Significantly weak, Evaluated by PT/OT with subacute rehab recommended. Feels better today. Denies chest pain, palpitations or shortness of breath. Sodium 133. Afebrile, WBC 10.8. Objective - Vital Signs Vital signs: Vital Signs Temp 97.6 F 01/22/20 03:52 Pulse 97 01/22/20 03:52 Resp 17 01/22/20 03:52 BP 118/59 01/22/20 03:52 Pulse Ox 97 01/22/20 03:52 Intake & Output 01/21/20 01/22/20 01/22/20 18:59 06:59 18:59 Intake Total 469.63 661.994 Output Total 1000 Balance 469.63 -338.006 Weight 47.5 kg Intake: Intake, IV Titration 113.63 181.994 Amount Heparin Sod,Pork in 0.45% 113.63 81.994 NaCl 25,000 unit In 0.45 % NaCl 1 250ml.bag @ 11 UNITS/KG/HR 9.979 mls/hr IV .Q24H NELLIE Rx#: [id number] Piperacillin-Tazobactam 3 100 .375 gm In Sodium Chloride 0.9% 100 ml @ 25 mls/hr IVPB Q8HR NELLIE Rx# :[id number] Oral 356 480 Output: Urine 1000 Other: Voiding Method Indwelling Catheter Indwelling Catheter # Voids 0 0 # Bowel Movements 0 - Labs CBC & Chem 7: 01/22/20 07:40 01/22/20 07:40 Labs: Abnormal Lab Results - Last 24 Hours (Table) 01/21/20 01/21/20 01/22/20 Range/Units 08:44 20:05 07:40 WBC 10.8 H (3.8-10.6) k/uL RBC 3.17 L (4.30-5.90) m/uL Hgb 9.8 L (13.0-17.5) gm/dL Hct 29.3 L (39.0-53.0) % Plt Count 132 L (150-450) k/uL APTT 48.3 H (22.0-30.0) sec Sodium (137-145) mmol/L BUN (9-20) mg/dL Creatinine (0.66-1.25) mg/dL Glucose (74-99) mg/dL Calcium (8.4-10.2) mg/dL Procalcitonin 0.72 H (0.02-0.09) ng/mL 01/22/20 Range/Units 07:40 WBC (3.8-10.6) k/uL RBC (4.30-5.90) m/uL Hgb (13.0-17.5) gm/dL Hct (39.0-53.0) % Plt Count (150-450) k/uL APTT (22.0-30.0) sec Sodium 133 L (137-145) mmol/L BUN 55 H (9-20) mg/dL Creatinine 3.08 H (0.66-1.25) mg/dL Glucose 111 H (74-99) mg/dL Calcium 7.7 L (8.4-10.2) mg/dL Procalcitonin (0.02-0.09) ng/mL Microbiology - Last 24 Hours (Table) 01/19/20 18:56 Blood Culture - Preliminary Blood No Growth after 48 hours 01/19/20 11:59 Blood Culture - Preliminary Blood No Growth after 48 hours 01/20/20 11:04 Blood Culture - Preliminary Blood No Growth after 24 hours Assessment and Plan Assessment: (1) ARF (acute renal failure) Current Visit: Yes Status: Acute Code(s): N17.9 - ACUTE KIDNEY FAILURE, UNSPECIFIED SNOMED Code(s): 23942305 (2) Atrial fibrillation with RVR Current Visit: Yes Status: Acute Code(s): I48.91 - UNSPECIFIED ATRIAL FIBRILLATION SNOMED Code(s): 892064387712118 (3) Elevated troponin level, possibly related to acute renal failure, not acute coronary syndrome as per cardiology Current Visit: Yes Status: Acute Code(s): R77.8 - OTHER SPECIFIED ABNORMALITIES OF PLASMA PROTEINS SNOMED Code(s): 376921203 (4) Acquired hypothyroidism Current Visit: Yes Status: Acute Code(s): E03.9 - HYPOTHYROIDISM, UNSPECIFIED SNOMED Code(s): 851243424 (5) Mixed hyperlipidemia Current Visit: Yes Status: Acute Code(s): E78.2 - MIXED HYPERLIPIDEMIA SNOMED Code(s): 122203982 (6) Essential (primary) hypertension Current Visit: Yes Status: Acute Code(s): I10 - ESSENTIAL (PRIMARY) HYPERTENSION SNOMED Code(s): 55181633 (7) hypoxic respiratory failure (8) H/O aortic valve replacement Current Visit: Yes Status: Acute Code(s): Z95.2 - PRESENCE OF PROSTHETIC HEART VALVE SNOMED Code(s): 8095794604452 (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 Potential Endocarditis, possible KRYSTAL as per cardiology and infectious disease. Concern for aspiration/aspiration pneumonia with speech therapy consulted. Antiarrhythmics and anticoagulation as per cardiology. Continue close monitoring of renal function, electrolytes with repeat labs ordered for a.m. Discussed subacute rehab at discharge patient is agreeable with. Discharge planning in progress for subacute rehab soon. The impression and plan of care has been dictated as directed. : I performed a history and examination of this patient, discussed the same with the dictator. I agree with the dictator's note ,documented as a scribe. Any additional findings or plans will be noted.
[2020-01-22] MEDS: APIXABAN 2.5 MG TABLET PO SCH (20:16)
[2020-01-22] MEDS: LEVOTHYROXINE 100 MCG TAB PO SCH (20:17)
[2020-01-23 01:08] LABS: Appearance,Urine Clear (Clear); Bacteria,Urine Rare /hpf; Bilirubin,Urine Negative (Negative); Blood,Urine Moderate (Negative); Color,Urine Yellow; Glucose,Urine (UA) Negative (Negative); Ketones,Urine Negative (Negative); Leukocyte Esterase,Urine Trace (Negative); Mucus,Urine Rare /hpf; Nitrite,Urine Negative (Negative); PH, Urine 6.5 (5.0-8.0); Protein,Urine 1+ (Negative); RBC,Urine 108 /hpf (0-5); Specific Gravity,Urine 1.015 (1.001-1.035); Squamous Epithelial Cell,Urine <1 /hpf (0-4); WBC,Urine 7 /hpf (0-5)
--- NOTE | 2020-01-23 01:36 | PN ---
PROGRESS NOTE DATE OF SERVICE: 01/22/2020 REASON FOR FOLLOWUP: Possible pneumonia and a question of endocarditis. INTERVAL HISTORY: The patient is currently afebrile, has been breathing comfortably. The patient denies having any chest pain or shortness of breath. He did have a minimal cough, not bringing up any sputum. No nausea, no vomiting. No abdominal pain or diarrhea. PHYSICAL EXAMINATION: Blood pressure 114/74 with pulse of 79, temperature is 97.8. He is 99% on room air. General description is an elderly male lying in bed in no distress. RESPIRATORY SYSTEM: Unlabored breathing, coarse breath sounds at the bases. No wheeze. HEART: S1, S2. Regular rate and rhythm. ABDOMEN: Soft, no tenderness. LABS: Hemoglobin is 9.8, white count 10.8. BUN 55, creatinine 3.08. Blood culture has been negative. Sputum not collected. DIAGNOSTIC IMPRESSION AND PLAN: Patient admitted to the hospital with weakness, shortness of breath and cough in this patient who did have a fever on presentation to the hospital with concern for possible pneumonia. He did have thickened aortic valve on echo and may benefit from transesophageal echocardiogram. Continue with Zosyn. Try to obtain a sputum and continue supportive care. MMODL / IJN: [id number] /
[2020-01-23] MEDS: SODIUM CHLORIDE 0.9% 1,000 ML IV SCH (07:05)
[2020-01-23 07:48] LABS: Basophils % (A) 0 %; Eosinophils # (A) 0.1 k/uL (0-0.7); Eosinophils % (A) 1 %; HCT 29.6 % (39.0-53.0); HGB 9.7 gm/dL (13.0-17.5); Lymphocytes # (A) 3.9 k/uL (1.0-4.8); Lymphocytes % (A) 37 %; MCH 30.3 pg (25.0-35.0); MCHC 32.8 g/dL (31.0-37.0); MCV 92.3 fL (80.0-100.0); Monocytes # (A) 0.6 k/uL (0-1.0); Monocytes % (A) 5 %; Neutrophils # (A) 5.5 k/uL (1.3-7.7); Neutrophils % (A) 53 %; Platelet Count 140 k/uL (150-450); RBC 3.21 m/uL (4.30-5.90); RDW 14.9 % (11.5-15.5); WBC 10.5 k/uL (3.8-10.6)
[2020-01-23 08:20] LABS: Calcium 7.7 mg/dL (8.4-10.2); Magnesium 1.8 mg/dL (1.6-2.3); Potassium 4.2 mmol/L (3.5-5.1)
[2020-01-23] MEDS: PIPERACILLIN-TAZOBACTAM 3.375 GM in SODIUM CHLORIDE 0.9% 100 ML IVPB SCH ×2 (09:28→17:30)
[2020-01-23] MEDS: METOPROLOL TARTRATE 25 MG TAB PO SCH ×2 (09:28→20:03)
[2020-01-23] MEDS: APIXABAN 2.5 MG TABLET PO SCH ×2 (09:28→20:03)
[2020-01-23] MEDS: ATORVASTATIN 40 MG TAB PO SCH (09:28)
--- NOTE | 2020-01-23 09:41 | P.PN ---
Subjective Progress Note Date: 01/23/20 This is a 69-year-old gentleman with past medical history significant for paroxysmal atrial fibrillation, on Eliquis for anticoagulation, coronary artery disease with prior bypass surgery, aortic valve replacement, hypertension, hyperlipidemia, he follows regularly with Dr. Onofre in the office. Presented to the hospital in acute renal failure. Patient was noted to have abnormality in troponin, not consistent with acute coronary syndrome. An echocardiogram with Doppler study was performed which revealed an ejection fraction of 45-50%, moderate mitral regurgitation, moderate aortic stenosis. Patient was seen and examined this morning, sitting up in his chair at bedside, he does state that he still feels mildly short of breath but overall better. Chin used to be somewhat confused this morning. Poor appetite. Blood pressure 118/60 with a heart rate of 90, 97% on room air. White blood cell count 10.8, hemoglobin 9.8, platelet count 132. Sodium 133, potassium 4.1, BUN 55, creatin ine 3.0. We will discontinue the IV heparin today and resume the patient's Eliquis. 01-23-2020 Patient was seen and examined this morning, overall he is feeling better, continues to be confused. Blood pressure 116/70 with a heart rate of 80, 94% on room air. White blood cell count 10.5, hemoglobin 9.7, platelet count 140. Sodium 134, potassium 4.2, BUN 15, creatinine 3.1. Objective - Vital Signs Vital signs: Vital Signs Temp 98.1 F 01/23/20 09:25 Pulse 80 01/23/20 09:25 Resp 18 01/23/20 09:25 BP 116/75 01/23/20 09:25 Pulse Ox 94 L 01/23/20 09:25 Intake & Output 01/22/20 01/23/20 01/23/20 18:59 06:59 18:59 Intake Total 240 30 Output Total 600 500 Balance -600 -260 30 Weight 76.5 kg Intake: Oral 240 30 Output: Urine 600 500 Other: Voiding Method Indwelling Catheter Indwelling Catheter # Voids 0 - Exam PHYSICAL EXAMINATION: GENERAL: 69-year-old gentleman in no acute distress at the time of my examination HEENT: Head is atraumatic, normocephalic. Pupils equal, round. Sclera anicteric. Conjunctiva are clear. Mucous membranes of the mouth are moist. Neck is supple. There is no elevated jugular venous pressure. No carotid bruit is heard. HEART EXAMINATION: Heart S1 and S2 irregularly irregular a systolic murmur is heard CHEST EXAMINATION: Lungs are clear to auscultation and precussion. No chest wall tenderness is noted on palpation or with deep breathing. ABDOMEN: Soft, nontender. Bowel sounds are heard. No organomegaly noted. EXTREMITIES: 2+ peripheral pulses with no evidence of peripheral edema and no calf tenderness noted. NEUROLOGIC patient is awake, alert and oriented 2 . . - Labs CBC & Chem 7: 01/23/20 07:34 01/23/20 07:34 Labs: Abnormal Lab Results - Last 24 Hours (Table) 01/22/20 01/23/20 01/23/20 Range/Units 19:30 07:34 07:34 RBC 3.21 L (4.30-5.90) m/uL Hgb 9.7 L (13.0-17.5) gm/dL Hct 29.6 L (39.0-53.0) % Plt Count 140 L (150-450) k/uL Sodium 134 L (137-145) mmol/L Chloride 108 H (98-107) mmol/L BUN 50 H (9-20) mg/dL Creatinine 3.15 H (0.66-1.25) mg/dL Glucose 112 H (74-99) mg/dL Calcium 7.7 L (8.4-10.2) mg/dL Urine Protein 1+ H (Negative) Urine Blood Moderate H (Negative) Ur Leukocyte Esterase Trace H (Negative) Urine RBC 108 H (0-5) /hpf Urine WBC 7 H (0-5) /hpf Urine Bacteria Rare H (None) /hpf Urine Mucus Rare H (None) /hpf Microbiology - Last 24 Hours (Table) 01/19/20 18:56 Blood Culture - Preliminary Blood No Growth after 72 hours 01/19/20 11:59 Blood Culture - Preliminary Blood No Growth after 72 hours 01/20/20 11:04 Blood Culture - Preliminary Blood No Growth after 48 hours Assessment and Plan Plan: Assessment and plan #1 acute renal failure #2 abnormality in troponin, not chest with acute coronary syndrome, likely secondary to acute renal failure #3 paroxysmal atrial fibrillation, we will resume the patient's Eliquis ,lower the dose to 2-1/2 twice a day #4 history of aortic valve replacement #5 hypertension #6 hyperlipidemia #7 history of nicotine dependence Plan From cardiology's perspective, we'll continue with current medications. Patient has been encouraged to continue eating her food, he had a swallow evaluation this morning which was negative. DNP note has been reviewed, I agree with a documented findings and plan of care. Patient was seen and examined.
--- NOTE | 2020-01-23 10:19 | P.PN ---
Subjective Patient is seen in follow-up for acute kidney injury on chronic kidney disease. Renal function stable. Currently maintained on normal saline. Oral intake fair. Nonoliguric. Has a Rodriguez catheter. No chest pain or shortness breath. Blood pressure stable. No changes overnight. Vital signs are stable. General: The patient appeared well nourished and normally developed. HEENT: Head exam is unremarkable. Neck is without jugular venous distension. LUNGS: Breath sounds decreased. HEART: Rate and Rhythm are regular. ABDOMEN: Soft, nontender. EXTREMITITES: No edema. Objective - Vital Signs Vital signs: Vital Signs Temp 98.1 F 01/23/20 09:25 Pulse 80 01/23/20 09:25 Resp 18 01/23/20 09:25 BP 116/75 01/23/20 09:25 Pulse Ox 94 L 01/23/20 09:25 Intake & Output 01/22/20 01/23/20 01/23/20 18:59 06:59 18:59 Intake Total 240 30 Output Total 600 500 Balance -600 -260 30 Weight 76.5 kg Intake: Oral 240 30 Output: Urine 600 500 Other: Voiding Method Indwelling Catheter Indwelling Catheter # Voids 0 - Labs CBC & Chem 7: 01/23/20 07:34 01/23/20 07:34 Labs: Abnormal Lab Results - Last 24 Hours (Table) 01/22/20 01/23/20 01/23/20 Range/Units 19:30 07:34 07:34 RBC 3.21 L (4.30-5.90) m/uL Hgb 9.7 L (13.0-17.5) gm/dL Hct 29.6 L (39.0-53.0) % Plt Count 140 L (150-450) k/uL Sodium 134 L (137-145) mmol/L Chloride 108 H (98-107) mmol/L BUN 50 H (9-20) mg/dL Creatinine 3.15 H (0.66-1.25) mg/dL Glucose 112 H (74-99) mg/dL Calcium 7.7 L (8.4-10.2) mg/dL Urine Protein 1+ H (Negative) Urine Blood Moderate H (Negative) Ur Leukocyte Esterase Trace H (Negative) Urine RBC 108 H (0-5) /hpf Urine WBC 7 H (0-5) /hpf Urine Bacteria Rare H (None) /hpf Urine Mucus Rare H (None) /hpf Microbiology - Last 24 Hours (Table) 01/22/20 07:40 Blood Culture - Preliminary Blood No Growth after 24 hours 01/19/20 18:56 Blood Culture - Preliminary Blood No Growth after 72 hours 01/19/20 11:59 Blood Culture - Preliminary Blood No Growth after 72 hours 01/20/20 11:04 Blood Culture - Preliminary Blood No Growth after 48 hours Assessment and Plan Plan: Assessment: 1. Acute kidney injury mostly prerenal secondary to hypotension, improving with IV hydration. Creatinine was 4.97 on admission and is stable at 3.15 today. Trace proteinuria on UA. No hydronephrosis noted on kidney ultrasound. 2. Chronic kidney disease stage III with baseline creatinine in the range of 1.4-1.6 secondary to nephrosclerosis. 3. Metabolic acidosis secondary to acute kidney injury s/p bicarb drip. 4. A. fib with RVR. Now rate controlled. Maintained on Lopressor and anticoagulation. 5. Chronic systolic CHF with ejection fraction of 45-50%. 6. Pneumonia maintained on antibiotics. ?Endocarditis. Infectious disease following. 7. Hematuria and proteinuria. Rule out GN. Plan: Continue normal saline at 50 mL an hour. Encouraged oral intake. Vancomycin discontinued. Repeat electrolytes in the morning. Check serologies. Quantify proteinuria.
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
--- NOTE | 2020-01-23 10:52 | P.PN ---
Subjective Progress Note Date: 01/23/20 Principal diagnosis: Right sided aspiration pneumonia Acute kidney injury Atrial fibrillation with RVR Acute on chronic systolic heart failure baseline ejection fraction of 45% Mild CHF with pleural effusion and basal atelectasis 01/23/2020, patient seen eval examined during the rounds labs reviewed medications reviewed care plan discussed, send dose has been adjusted, patient is on oral direct anticoagulant, Today Reviewed White Cell Count Is Improved, Renal Functions Remains Elevated but Stable BUN/creatinine Is 15 3.15, This is a 69-year-old male with multiple medical problems and issues including chronic atrial fibrillation and hypothyroidism hypertension hypertensive cardiovascular disease, patient presented into the hospital in emergency department with generalized weakness fatigue found to be on acute renal failure, patient has been resuscitated with IV fluids are pierced to be slightly fluid overload, renal services has been following, patient has been on broad-spectrum antibiotics with Zosyn chest x-ray showed right basilar infiltrate and small effusion, patient however remains on room air oxygen saturation 90%, Objective - Vital Signs Vital signs: Vital Signs Temp 98.1 F 01/23/20 09:25 Pulse 80 01/23/20 09:25 Resp 18 01/23/20 09:25 BP 116/75 01/23/20 09:25 Pulse Ox 94 L 01/23/20 09:25 Intake & Output 01/22/20 01/23/20 01/23/20 18:59 06:59 18:59 Intake Total 240 30 Output Total 600 500 Balance -600 -260 30 Weight 76.5 kg Intake: Oral 240 30 Output: Urine 600 500 Other: Voiding Method Indwelling Catheter Indwelling Catheter # Voids 0 - Exam - Constitutional General appearance: average body habitus, disheveled - EENT Eyes: PERRLA Ears: bilateral: normal - Neck Carotids: bilateral: upstroke normal Thyroid: bilateral: normal size - Respiratory Respiratory: bilateral: diminished (Basal crackles predominantly on the right side compared to left side) - Cardiovascular Rhythm: irregularly irregular Heart sounds: normal: S1, S2 - Gastrointestinal General gastrointestinal: soft - Neurologic Neurologic: CNII-XII intact - Musculoskeletal Musculoskeletal: gait normal, generalized weakness, strength equal bilaterally - Psychiatric Psychiatric: A&O x's 3, appropriate affect, intact judgment & insight - Labs CBC & Chem 7: 01/23/20 07:34 01/23/20 07:34 Labs: Abnormal Lab Results - Last 24 Hours (Table) 01/22/20 01/23/20 01/23/20 Range/Units 19:30 07:34 07:34 RBC 3.21 L (4.30-5.90) m/uL Hgb 9.7 L (13.0-17.5) gm/dL Hct 29.6 L (39.0-53.0) % Plt Count 140 L (150-450) k/uL Sodium 134 L (137-145) mmol/L Chloride 108 H (98-107) mmol/L BUN 50 H (9-20) mg/dL Creatinine 3.15 H (0.66-1.25) mg/dL Glucose 112 H (74-99) mg/dL Calcium 7.7 L (8.4-10.2) mg/dL Urine Protein 1+ H (Negative) Urine Blood Moderate H (Negative) Ur Leukocyte Esterase Trace H (Negative) Urine RBC 108 H (0-5) /hpf Urine WBC 7 H (0-5) /hpf Urine Bacteria Rare H (None) /hpf Urine Mucus Rare H (None) /hpf Microbiology - Last 24 Hours (Table) 01/22/20 07:40 Blood Culture - Preliminary Blood No Growth after 24 hours 01/19/20 18:56 Blood Culture - Preliminary Blood No Growth after 72 hours 01/19/20 11:59 Blood Culture - Preliminary Blood No Growth after 72 hours 01/20/20 11:04 Blood Culture - Preliminary Blood No Growth after 48 hours Assessment and Plan Assessment: Right sided aspiration pneumonia Acute kidney injury Atrial fibrillation with RVR Acute on chronic systolic heart failure baseline ejection fraction of 45% Mild CHF with pleural effusion and basal atelectasis Plan: Broad-spectrum antibiotics Deep breathing exercises incentive spirometry The coagulation for atrial fibrillation Increase activity as tolerated Titrated oxygen down Time with Patient: Greater than 30
--- NOTE | 2020-01-23 16:12 | P.PN ---
Subjective Progress Note Date: 01/23/20 This is a 69 y/o male with h/o Hypothyroiodism, Afib, hypertension,and Hyperlipidemia who presented to [facility] with ftaigue. He was found to be in acute renal failure based on lab studies. He has been fluid recusitated somewhat. he appears to have some Acute CHF as well based on Xray findings. This am he developed AFIB with RVR and is now on Cardizem drip. he denies any Chest pain, pressure, SOB, nausea, vomiting or dysuria.He denies NSAID use as he is on LT anticoagulation 01/20/2020: Patient is still complaining of fatigue, but denies any chest pain pressure shortness breath at this time. He does have shortness of breath with exertion. A 2-D echo ordered by cardiology showed a questionable to the aortic valve. EF was 45-50%. There is moderate mitral regurgitation, moderate aortic stenosis, grade 2 diastolic dysfunction, mild mitral stenosis and mild tricuspid regurgitation. Nephrology diagnosed him with acute knee injury possibly ischemic ATN with hypotension. There are concerns regarding sepsis, however his lactic acid is been negative 2. Blood cultures are pending. Patient is currently on meropenem and vancomycin. He's been started on bicarbonate drip for metabolic acidosis. THE KIDNEY AND BLADDER WERE SUBOPTIMAL, BUT FAILED TO SHOW ANY HYDRONEPHROSIS. NO CONCERNING MASSES WERE SEEN. Chest x-ray this a.m. shows developing left basilar acute infiltrate and/or atelectasis. Suspect worsening CHF exacerbation. MAXIMUM TEMPERATURE overnight is 100.5 as of 1700. Blood pressures remained stable. 01/21/2020 continues on bicarb drip, bicarb uo to 23. Creatinine improving, down to 3.2. Eliquis on hold, anticoagulated on heparin drip. Hemoglobin 9.7, platelets 129. Afebrile, T-max 100.2, WBC 9.8 ,blood cultures remain negative at 24 hours. Denies chest pain, palpitations. Maintaining O2 sats in the 90s on 3 L nasal cannula. Chest x-ray completed , results pending. 01/22/2020 bicarb drip discontinued yesterday,maintained on IV fluid hydration of normal saline. Chest x-ray yesterday reporting more focal opacity right basilar and posterior basilar opacity's along with small effusions. Maintaining O2 sats in the low 90s on room air. Vancomycin discontinued, Zosyn initiated.Renal function continues to trend down. Currently anticoagulated on heparin drip. Significantly weak, Evaluated by PT/OT with subacute rehab recommended. Feels better today. Denies chest pain, palpitations or shortness of breath. Sodium 133. Afebrile, WBC 10.8. 01/23/2020 maintained on IV fluid hydration and broad-spectrum antibiotics .continues to feel better. Swallow evaluation/MBS reported no overt signs or symptoms of aspiration, normal swallow function. Diet intake ranging from 25- 75%. Renal function stable. Denies chest pain, palpitations or increasing shor tness of breath. Objective - Vital Signs Vital signs: Vital Signs Temp 98.1 F 01/23/20 09:25 Pulse 73 01/23/20 12:20 Resp 18 01/23/20 14:00 BP 122/82 01/23/20 12:20 Pulse Ox 95 01/23/20 12:20 Intake & Output 01/22/20 01/23/20 01/23/20 18:59 06:59 18:59 Intake Total 240 810 Output Total 600 500 600 Balance -600 -260 210 Weight 76.5 kg Intake: Intake, IV Titration 500 Amount Piperacillin-Tazobactam 3 100 .375 gm In Sodium Chloride 0.9% 100 ml @ 25 mls/hr IVPB Q12HR [facility] Rx #:[id number] Sodium Chloride 0.9% 1, 400 000 ml @ 50 mls/hr IV . Q20H [facility] Rx#:[id number] Oral 240 310 Output: Urine 600 500 600 Other: Voiding Method Indwelling Catheter Indwelling Catheter Indwelling Catheter # Voids 0 - Exam General: Lying in bed , alert and oriented 3, no acute distress, fatigued Neck: The neck is supple, there is no thyromegaly, lymphadenopathy, tenderness or JVD. Cardiovascular: S1S2 is normal, There is a regular rate and rhythm. No rub or gallop is appreciated. 1/6 systolic murmur over the right sternal border Respiratory: Lungs are coarse, bilateral bases diminished with fine bibasilar crackles, greater on the right Gastrointestinal: Soft, non-distended, non-tender abdomen without masses or organomegaly noted. There is no rebound or guarding present. Positive Bowel sounds. Musculoskeletal: Normal ROM, no tenderness, There is no pedal edema. There is no calf tenderness or swelling. Neurological: CN II-XII intact, no focal deficits. Strength and sensation grossly intact. Skin: Skin is warm and dry and no rashes are noted. - Labs CBC & Chem 7: 01/23/20 07:34 01/23/20 07:34 Labs: Abnormal Lab Results - Last 24 Hours (Table) 01/22/20 01/23/20 01/23/20 Range/Units 19:30 07:34 07:34 RBC 3.21 L (4.30-5.90) m/uL Hgb 9.7 L (13.0-17.5) gm/dL Hct 29.6 L (39.0-53.0) % Plt Count 140 L (150-450) k/uL Sodium 134 L (137-145) mmol/L Chloride 108 H (98-107) mmol/L BUN 50 H (9-20) mg/dL Creatinine 3.15 H (0.66-1.25) mg/dL Glucose 112 H (74-99) mg/dL Calcium 7.7 L (8.4-10.2) mg/dL Urine Protein 1+ H (Negative) Urine Blood Moderate H (Negative) Ur Leukocyte Esterase Trace H (Negative) Urine RBC 108 H (0-5) /hpf Urine WBC 7 H (0-5) /hpf Urine Bacteria Rare H (None) /hpf Urine Mucus Rare H (None) /hpf Microbiology - Last 24 Hours (Table) 01/19/20 11:59 Blood Culture - Preliminary Blood No Growth after 96 hours 01/20/20 11:04 Blood Culture - Preliminary Blood No Growth after 72 hours 01/22/20 07:40 Blood Culture - Preliminary Blood No Growth after 24 hours 01/19/20 18:56 Blood Culture - Preliminary Blood No Growth after 72 hours Assessment and Plan Assessment: (1) ARF (acute renal failure) Current Visit: Yes Status: Acute Code(s): N17.9 - ACUTE KIDNEY FAILURE, UNSPECIFIED SNOMED Code(s): 48276189 (2) Atrial fibrillation with RVR Current Visit: Yes Status: Acute Code(s): I48.91 - UNSPECIFIED ATRIAL FIBRILLATION SNOMED Code(s): 000501027080251 (3) Elevated troponin level, possibly related to acute renal failure, not acute coronary syndrome as per cardiology Current Visit: Yes Status: Acute Code(s): R77.8 - OTHER SPECIFIED ABNORMALITIES OF PLASMA PROTEINS SNOMED Code(s): 377053552 (4) Acquired hypothyroidism Current Visit: Yes Status: Acute Code(s): E03.9 - HYPOTHYROIDISM, UNSPECIFIED SNOMED Code(s): 743168265 (5) Mixed hyperlipidemia Current Visit: Yes Status: Acute Code(s): E78.2 - MIXED HYPERLIPIDEMIA SNOMED Code(s): 512194766 (6) Essential (primary) hypertension Current Visit: Yes Status: Acute Code(s): I10 - ESSENTIAL (PRIMARY) HYPERTENSION SNOMED Code(s): 24194501 (7) hypoxic respiratory failure (8) H/O aortic valve replacement Current Visit: Yes Status: Acute Code(s): Z95.2 - PRESENCE OF PROSTHETIC HEART VALVE SNOMED Code(s): 1772026199836 (9) snf (current) use of anticoagulants Current Visit: Yes Status: Acute Code(s): Z79.01 - ACID REMOVER (CURRENT) USE OF ANTICOAGULANTS SNOMED Code(s): 277508078 (10) right-sided aspiration pneumonia Current Visit: Yes Status: Acute Code(s): J18.9 - PNEUMONIA, UNSPECIFIED ORGANISM SNOMED Code(s): 617413626 (11) mild acute on chronic systolic CHF (12) possible endocarditis, cardiology and infectious disease following Plan: Continue on current medication regime ,monitoring and symptomatic treatment. Antiarrhythmics and anticoagulation as per cardiology. Continue close monitoring of renal function, electrolytes with repeat labs ordered for a.m. initially had discussed subacute rehab but patient wishes to return home with home care .follow closely with multiple consults The impression and plan of care has been dictated as directed. : I performed a history and examination of this patient, discussed the same with the dictator. I agree with the dictator's note ,documented as a scribe. Any additional findings or plans will be noted.
[2020-01-23] MEDS: LEVOTHYROXINE 100 MCG TAB PO SCH (20:03)
[2020-01-23 20:29] LABS: Protein, Total 6.9 g/dL (6.2-8.2)
[2020-01-23 20:58] LABS: Hepatitis A Antibody IgM Non-Reactive (Non-Reactive); Hepatitis B Core IgM Non-Reactive (Non-Reactive); Hepatitis B Surface Antigen Non-Reactive (Non-Reactive); Hepatitis C IgG Antibody Non-Reactive (Non-Reactive)
[2020-01-23 21:19] LABS: Creatinine,Urine Random 73.4 mg/dL; Protein/Creatinine Ratio,Urine 0.94
[2020-01-23 21:56] LABS: DNA Double-Stranded NEGATIVE (NEGATIVE)
--- NOTE | 2020-01-23 23:12 | PN ---
PROGRESS NOTE DATE OF SERVICE: 01/23/2020 REASON FOR FOLLOWUP: Pneumonia. INTERVAL HISTORY: Patient is currently afebrile. The patient is breathing more comfortably. Patient denies having any chest pain. No shortness of breath. Minimal cough. No nausea, vomiting, abdominal pain or diarrhea. PHYSICAL EXAMINATION: Blood pressure 141/85, pulse of 113, temperature 99. He is 92% on room air. General description is an elderly male lying in bed in no distress. Respiratory system: Unlabored breathing. Some coarse breath sounds in the bases. No wheeze. Heart S1, S2. Regular rate and rhythm. ABDOMEN: Soft, no tenderness. LABS: Hemoglobin 9.7, white count 10.5, BUN of 50, creatinine 3.15. Blood culture was elevated. DIAGNOSTIC IMPRESSION AND PLAN: Patient admitted to the hospital with shortness of breath, cough and congestion with fever. Concern likely for pneumonia clinically not behaving as endocarditis with multiple negative blood cultures. Patient is covered with Zosyn and did have overall clinical improvement, to continue and will monitor clinical course closely. MMODL / IJN: [id number] /
[2020-01-24] MEDS: PIPERACILLIN-TAZOBACTAM 3.375 GM in SODIUM CHLORIDE 0.9% 100 ML IVPB SCH ×4 (00:05→23:02)
[2020-01-24] MEDS: SODIUM CHLORIDE 0.9% 1,000 ML IV SCH ×2 (06:00→21:09)
[2020-01-24] MEDS: APIXABAN 2.5 MG TABLET PO SCH ×2 (08:01→21:09)
[2020-01-24] MEDS: ATORVASTATIN 40 MG TAB PO SCH (08:01)
[2020-01-24] MEDS: METOPROLOL TARTRATE 25 MG TAB PO SCH ×2 (08:01→21:09)
--- NOTE | 2020-01-24 10:33 | P.PN ---
Subjective Progress Note Date: 01/24/20 This is a 69-year-old gentleman with past medical history significant for paroxysmal atrial fibrillation, on Eliquis for anticoagulation, coronary artery disease with prior bypass surgery, aortic valve replacement, hypertension, hyperlipidemia, he follows regularly with Dr. Onofre in the office. Presented to the hospital in acute renal failure. Patient was noted to have abnormality in troponin, not consistent with acute coronary syndrome. An echocardiogram with Doppler study was performed which revealed an ejection fraction of 45-50%, moderate mitral regurgitation, moderate aortic stenosis. Patient was seen and examined this morning, sitting up in his chair at bedside, he does state that he still feels mildly short of breath but overall better. Chin used to be somewhat confused this morning. Poor appetite. Blood pressure 118/60 with a heart rate of 90, 97% on room air. White blood cell count 10.8, hemoglobin 9.8, platelet count 132. Sodium 133, potassium 4.1, BUN 55, creatin ine 3.0. We will discontinue the IV heparin today and resume the patient's Eliquis. 01-23-2020 Patient was seen and examined this morning, overall he is feeling better, continues to be confused. Blood pressure 116/70 with a heart rate of 80, 94% on room air. White blood cell count 10.5, hemoglobin 9.7, platelet count 140. Sodium 134, potassium 4.2, BUN 15, creatinine 3.1. 01-24-2020 Patient was seen and examined this morning, overall is feeling mildly better. Continues to be quite confused. Blood pressure 122/70 with a heart rate of 90, 94% on room air. No laboratory data today. Objective - Vital Signs Vital signs: Vital Signs Temp 98.4 F 01/24/20 04:00 Pulse 102 H 01/24/20 04:00 Resp 22 01/24/20 04:00 BP 122/78 01/24/20 04:00 Pulse Ox 94 L 01/24/20 04:00 Intake & Output 01/23/20 01/24/20 01/24/20 18:59 06:59 18:59 Intake Total 810 120 Output Total 600 1500 Balance 210 -1500 120 Weight 76 kg Intake: Intake, IV Titration 500 Amount Piperacillin-Tazobactam 3 100 .375 gm In Sodium Chloride 0.9% 100 ml @ 25 mls/hr IVPB Q12HR [facility] Rx #:[id number] Sodium Chloride 0.9% 1, 400 000 ml @ 50 mls/hr IV . Q20H [facility] Rx#:[id number] Oral 310 120 Output: Urine 600 1500 Other: Voiding Method Indwelling Catheter Indwelling Catheter # Voids 0 # Bowel Movements 1 - Exam PHYSICAL EXAMINATION: GENERAL: 69-year-old gentleman in no acute distress at the time of my examination HEENT: Head is atraumatic, normocephalic. Pupils equal, round. Sclera anicteric. Conjunctiva are clear. Mucous membranes of the mouth are moist. Neck is supple. There is no elevated jugular venous pressure. No carotid bruit is heard. HEART EXAMINATION: Heart S1 and S2 irregularly irregular a systolic murmur is heard CHEST EXAMINATION: Lungs are clear to auscultation and precussion. No chest wall tenderness is noted on palpation or with deep breathing. ABDOMEN: Soft, nontender. Bowel sounds are heard. No organomegaly noted. EXTREMITIES: 2+ peripheral pulses with no evidence of peripheral edema and no calf tenderness noted. NEUROLOGIC patient is awake, alert and oriented 2 . . - Labs CBC & Chem 7: 01/23/20 07:34 01/23/20 07:34 Labs: Microbiology - Last 24 Hours (Table) 01/22/20 07:40 Blood Culture - Preliminary Blood No Growth after 48 hours 01/19/20 18:56 Blood Culture - Preliminary Blood No Growth after 96 hours 01/19/20 11:59 Blood Culture - Preliminary Blood No Growth after 96 hours 01/20/20 11:04 Blood Culture - Preliminary Blood No Growth after 72 hours Assessment and Plan Plan: Assessment and plan #1 acute renal failure #2 abnormality in troponin, not chest with acute coronary syndrome, likely secondary to acute renal failure #3 paroxysmal atrial fibrillation, we will resume the patient's Eliquis ,lower the dose to 2-1/2 twice a day #4 history of aortic valve replacement #5 hypertension #6 hyperlipidemia #7 history of nicotine dependence Plan From cardiology's perspective, we'll continue with current medications. Recommend a social work evaluation for discharge planning. DNP note has been reviewed, I agree with a documented findings and plan of care. Patient was seen and examined.
--- NOTE | 2020-01-24 10:47 | P.PN ---
Subjective Progress Note Date: 01/24/20 Principal diagnosis: Right sided aspiration pneumonia Acute kidney injury Atrial fibrillation with RVR Acute on chronic systolic heart failure baseline ejection fraction of 45% Mild CHF with pleural effusion and basal atelectasis 01/24/2020, patient seen eval examined during the rounds labs reviewed medications reviewed care plan discussed, patient remains on room air denies any chest pain shortness of breath, he remains afebrile, oxygen saturation 98%, 01/23/2020, patient seen eval examined during the rounds labs reviewed medications reviewed care plan discussed, send dose has been adjusted, patient is on oral direct anticoagulant, Today Reviewed White Cell Count Is Improved, Renal Functions Remains Elevated but Stable BUN/creatinine Is 15 3.15, This is a 69-year-old male with multiple medical problems and issues including chronic atrial fibrillation and hypothyroidism hypertension hypertensive cardiovascular disease, patient presented into the hospital in emergency department with generalized weakness fatigue found to be on acute renal failure, patient has been resuscitated with IV fluids are pierced to be slightly fluid overload, renal services has been following, patient has been on broad-spectrum antibiotics with Zosyn chest x-ray showed right basilar infiltrate and small effusion, patient however remains on room air oxygen saturation 90%, Objective - Vital Signs Vital signs: Vital Signs Temp 97.4 F L 01/24/20 08:15 Pulse 96 01/24/20 08:15 Resp 22 01/24/20 08:15 BP 109/69 01/24/20 08:15 Pulse Ox 98 01/24/20 08:15 Intake & Output 01/23/20 01/24/20 01/24/20 18:59 06:59 18:59 Intake Total 810 120 Output Total 600 1500 Balance 210 -1500 120 Weight 76 kg Intake: Intake, IV Titration 500 Amount Piperacillin-Tazobactam 3 100 .375 gm In Sodium Chloride 0.9% 100 ml @ 25 mls/hr IVPB Q12HR [facility] Rx #:[id number] Sodium Chloride 0.9% 1, 400 000 ml @ 50 mls/hr IV . Q20H [facility] Rx#:[id number] Oral 310 120 Output: Urine 600 1500 Other: Voiding Method Indwelling Catheter Indwelling Catheter Indwelling Catheter # Voids 0 # Bowel Movements 1 - Exam - Constitutional General appearance: average body habitus, disheveled - EENT Eyes: PERRLA Ears: bilateral: normal - Neck Carotids: bilateral: upstroke normal Thyroid: bilateral: normal size - Respiratory Respiratory: bilateral: diminished (Basal crackles predominantly on the right side compared to left side) - Cardiovascular Rhythm: irregularly irregular Heart sounds: normal: S1, S2 - Gastrointestinal General gastrointestinal: soft - Neurologic Neurologic: CNII-XII intact - Musculoskeletal Musculoskeletal: gait normal, generalized weakness, strength equal bilaterally - Psychiatric Psychiatric: A&O x's 3, appropriate affect, intact judgment & insight - Labs CBC & Chem 7: 01/23/20 07:34 01/23/20 07:34 Labs: Microbiology - Last 24 Hours (Table) 01/22/20 07:40 Blood Culture - Preliminary Blood No Growth after 48 hours 01/19/20 18:56 Blood Culture - Preliminary Blood No Growth after 96 hours 01/19/20 11:59 Blood Culture - Preliminary Blood No Growth after 96 hours 01/20/20 11:04 Blood Culture - Preliminary Blood No Growth after 72 hours Assessment and Plan Assessment: Right sided aspiration pneumonia Acute kidney injury Atrial fibrillation with RVR Acute on chronic systolic heart failure baseline ejection fraction of 45% Mild CHF with pleural effusion and basal atelectasis Plan: Broad-spectrum antibiotics, and can be switched to oral like Augmentin 500 twice a day for 3-4 days Deep breathing exercises incentive spirometry The coagulation for atrial fibrillation Increase activity as tolerated Titrated oxygen down Time with Patient: Greater than 30
[2020-01-24 11:19] LABS: Albumin 2.5 g/dL (3.5-5.0); Calcium 7.7 mg/dL (8.4-10.2); Magnesium 1.9 mg/dL (1.6-2.3); Potassium 4.4 mmol/L (3.5-5.1); Total Bilirubin 1.2 mg/dL (0.2-1.3); Total Protein 7.5 g/dL (6.3-8.2)
[2020-01-24 12:35] LABS: Complement C3 69.3 mg/dL (80.0-207.0)
--- NOTE | 2020-01-24 13:56 | P.PN ---
Subjective Patient is seen in follow-up for acute kidney injury on chronic kidney disease. Renal function a little worse today. Currently maintained on normal saline. Oral intake fair. Nonoliguric. Has a Rodriguez catheter. No chest pain or shortness breath. Blood pressure stable. No changes overnight. Vital signs are stable. General: The patient appeared well nourished and normally developed. HEENT: Head exam is unremarkable. Neck is without jugular venous distension. LUNGS: Breath sounds decreased. HEART: Rate and Rhythm are regular. ABDOMEN: Soft, nontender. EXTREMITITES: No edema. Objective - Vital Signs Vital signs: Vital Signs Temp 98.1 F 01/24/20 12:00 Pulse 83 01/24/20 12:00 Resp 18 01/24/20 12:00 BP 125/90 01/24/20 12:00 Pulse Ox 97 01/24/20 12:00 Intake & Output 01/23/20 01/24/20 01/24/20 18:59 06:59 18:59 Intake Total 810 120 Output Total 600 1500 Balance 210 -1500 120 Weight 76 kg Intake: Intake, IV Titration 500 Amount Piperacillin-Tazobactam 3 100 .375 gm In Sodium Chloride 0.9% 100 ml @ 25 mls/hr IVPB Q12HR [facility] Rx #:[id number] Sodium Chloride 0.9% 1, 400 000 ml @ 50 mls/hr IV . Q20H [facility] Rx#:[id number] Oral 310 120 Output: Urine 600 1500 Other: Voiding Method Indwelling Catheter Indwelling Catheter Indwelling Catheter # Voids 0 # Bowel Movements 1 - Labs CBC & Chem 7: 01/23/20 07:34 01/24/20 09:29 Labs: Abnormal Lab Results - Last 24 Hours (Table) 01/23/20 01/24/20 Range/Units 10:37 09:29 Sodium 134 L (137-145) mmol/L BUN 46 H (9-20) mg/dL Creatinine 3.34 H (0.66-1.25) mg/dL Glucose 114 H (74-99) mg/dL Calcium 7.7 L (8.4-10.2) mg/dL Albumin 2.5 L (3.5-5.0) g/dL Complement C3 69.3 L (80.0-207.0) mg/dL Microbiology - Last 24 Hours (Table) 01/20/20 11:04 Blood Culture - Preliminary Blood No Growth after 96 hours 01/22/20 07:40 Blood Culture - Preliminary Blood No Growth after 48 hours 01/19/20 18:56 Blood Culture - Preliminary Blood No Growth after 96 hours 01/19/20 11:59 Blood Culture - Preliminary Blood No Growth after 96 hours Assessment and Plan Plan: Assessment: 1. Acute kidney injury mostly prerenal secondary to hypotension and infection, improving with IV hydration. Creatinine was 4.97 on admission - 3.34 today. Trace proteinuria on UA but also has hematuria. No hydronephrosis noted on kidney ultrasound. 2. Chronic kidney disease stage III with baseline creatinine in the range of 1.4-1.6 secondary to nephrosclerosis. 3. Metabolic acidosis secondary to acute kidney injury s/p bicarb drip. 4. A. fib with RVR. Now rate controlled. Maintained on Lopressor and anticoagulation. 5. Chronic systolic CHF with ejection fraction of 45-50%. 6. Pneumonia maintained on antibiotics. ?Endocarditis. Infectious disease following. 7. Hematuria and proteinuria. Rule out GN. Serologies negative so far except for low C3. Rest pending. UPC 0.9. Plan: Continue normal saline at 50 mL an hour. Encouraged oral intake. Vancomycin discontinued. Repeat electrolytes in the morning. Continue to monitor renal function and urine output. I did discuss with the patient the need for kidney biopsy for definitive diagnosis. Patient wants to hold off at this time.
--- NOTE | 2020-01-24 16:32 | P.PN ---
Subjective Progress Note Date: 01/24/20 This is a 69 y/o male with h/o Hypothyroiodism, Afib, hypertension,and Hyperlipidemia who presented to [facility] ER with ftaigue. He was found to be in acute renal failure based on lab studies. He has been fluid recusitated somewhat. he appears to have some Acute CHF as well based on Xray findings. This am he developed AFIB with RVR and is now on Cardizem drip. he denies any Chest pain, pressure, SOB, nausea, vomiting or dysuria.He denies NSAID use as he is on LT anticoagulation 01/20/2020: Patient is still complaining of fatigue, but denies any chest pain pressure shortness breath at this time. He does have shortness of breath with exertion. A 2-D echo ordered by cardiology showed a questionable to the aortic valve. EF was 45-50%. There is moderate mitral regurgitation, moderate aortic stenosis, grade 2 diastolic dysfunction, mild mitral stenosis and mild tricuspid regurgitation. Nephrology diagnosed him with acute knee injury possibly ischemic ATN with hypotension. There are concerns regarding sepsis, however his lactic acid is been negative 2. Blood cultures are pending. Patient is currently on meropenem and vancomycin. He's been started on bicarbonate drip for metabolic acidosis. THE KIDNEY AND BLADDER WERE SUBOPTIMAL, BUT FAILED TO SHOW ANY HYDRONEPHROSIS. NO CONCERNING MASSES WERE SEEN. Chest x-ray this a.m. shows developing left basilar acute infiltrate and/or atelectasis. Suspect worsening CHF exacerbation. MAXIMUM TEMPERATURE overnight is 100.5 as of 1700. Blood pressures remained stable. 01/21/2020 continues on bicarb drip, bicarb uo to 23. Creatinine improving, down to 3.2. Eliquis on hold, anticoagulated on heparin drip. Hemoglobin 9.7, platelets 129. Afebrile, T-max 100.2, WBC 9.8 ,blood cultures remain negative at 24 hours. Denies chest pain, palpitations. Maintaining O2 sats in the 90s on 3 L nasal cannula. Chest x-ray completed , results pending. 01/22/2020 bicarb drip discontinued yesterday,maintained on IV fluid hydration of normal saline. Chest x-ray yesterday reporting more focal opacity right basilar and posterior basilar opacity's along with small effusions. Maintaining O2 sats in the low 90s on room air. Vancomycin discontinued, Zosyn initiated.Renal function continues to trend down. Currently anticoagulated on heparin drip. Significantly weak, Evaluated by PT/OT with subacute rehab recommended. Feels better today. Denies chest pain, palpitations or shortness of breath. Sodium 133. Afebrile, WBC 10.8. 01/23/2020 maintained on IV fluid hydration and broad-spectrum antibiotics .continues to feel better. Swallow evaluation/MBS reported no overt signs or symptoms of aspiration, normal swallow function. Diet intake ranging from 25- 75%. Renal function stable. Denies chest pain, palpitations or increasing shor tness of breath. 01/24/2020 no overnight event. Maintained on IV fluid hydration with mildly worsening renal function, creatinine at 3.35. Consuming 25-50%. Significant generalized weakness, requiring 1 person assist with standard walker. Staff reports patient does not tolerate sitting up in chair for very long. Denies chest pain, palpitations, shortness of breath. Maintaining O2 sats of high 90s on room air. T-max 99, blood cultures reporting no growth. Objective - Vital Signs Vital signs: Vital Signs Temp 98.1 F 01/24/20 12:00 Pulse 83 01/24/20 12:00 Resp 18 01/24/20 12:00 BP 125/90 01/24/20 12:00 Pulse Ox 97 01/24/20 12:00 Intake & Output 01/23/20 01/24/20 01/24/20 18:59 06:59 18:59 Intake Total 810 120 Output Total 600 1500 Balance 210 -1500 120 Weight 76 kg Intake: Intake, IV Titration 500 Amount Piperacillin-Tazobactam 3 100 .375 gm In Sodium Chloride 0.9% 100 ml @ 25 mls/hr IVPB Q12HR NELLIE Rx #:[id number] Sodium Chloride 0.9% 1, 400 000 ml @ 50 mls/hr IV . Q20H NELLIE Rx#:[id number] Oral 310 120 Output: Urine 600 1500 Other: Voiding Method Indwelling Catheter Indwelling Catheter Indwelling Catheter # Voids 0 # Bowel Movements 1 - Exam General: Lying in bed , alert and oriented 3, no acute distress, tired appea ring Neck: The neck is supple, no JVD. Cardiovascular: S1S2 is normal, There is a regular rate and rhythm. No rub or gallop is appreciated. Positive systolic murmur. Respiratory: Lungs are coarse, bilateral bases diminished with fine bibasilar crackles Gastrointestinal: Soft, non-distended, non-tender abdomen without masses or organomegaly noted. No guarding present. Positive Bowel sounds. Musculoskeletal: Normal ROM, no tenderness,no pedal edema. no calf tenderness or swelling. Neurological: CN II-XII intact, no focal deficits. Strength and sensation grossly intact. Skin: Skin is warm and dry, no rashes are noted. - Labs CBC & Chem 7: 01/23/20 07:34 01/24/20 09:29 Labs: Abnormal Lab Results - Last 24 Hours (Table) 01/23/20 01/24/20 Range/Units 10:37 09:29 Sodium 134 L (137-145) mmol/L BUN 46 H (9-20) mg/dL Creatinine 3.34 H (0.66-1.25) mg/dL Glucose 114 H (74-99) mg/dL Calcium 7.7 L (8.4-10.2) mg/dL Albumin 2.5 L (3.5-5.0) g/dL Complement C3 69.3 L (80.0-207.0) mg/dL Microbiology - Last 24 Hours (Table) 01/19/20 11:59 Blood Culture - Preliminary Blood No Growth after 120 hours 01/20/20 11:04 Blood Culture - Preliminary Blood No Growth after 96 hours 01/22/20 07:40 Blood Culture - Preliminary Blood No Growth after 48 hours 01/19/20 18:56 Blood Culture - Preliminary Blood No Growth after 96 hours Assessment and Plan Assessment: (1) ARF (acute renal failure) Current Visit: Yes Status: Acute Code(s): N17.9 - ACUTE KIDNEY FAILURE, UNSPECIFIED SNOMED Code(s): 64889273 (2) Atrial fibrillation with RVR Current Visit: Yes Status: Acute Code(s): I48.91 - UNSPECIFIED ATRIAL FIBRILLATION SNOMED Code(s): 418341218190000 (3) Elevated troponin level, possibly related to acute renal failure, not acute coronary syndrome as per cardiology Current Visit: Yes Status: Acute Code(s): R77.8 - OTHER SPECIFIED ABNORMALITIES OF PLASMA PROTEINS SNOMED Code(s): 393063788 (4) Acquired hypothyroidism Current Visit: Yes Status: Acute Code(s): E03.9 - HYPOTHYROIDISM, UNSPECIFIED SNOMED Code(s): 376742839 (5) Mixed hyperlipidemia Current Visit: Yes Status: Acute Code(s): E78.2 - MIXED HYPERLIPIDEMIA SNOMED Code(s): 648804754 (6) Essential (primary) hypertension Current Visit: Yes Status: Acute Code(s): I10 - ESSENTIAL (PRIMARY) HYPE RTENSION SNOMED Code(s): 15063715 (7) hypoxic respiratory failure (8) H/O aortic valve replacement Current Visit: Yes Status: Acute Code(s): Z95.2 - PRESENCE OF PROSTHETIC HEART VALVE SNOMED Code(s): 6065683981362 (9) [facility] (current) use of anticoagulants Current Visit: Yes Status: Acute Code(s): Z79.01 - HALF-WAY (CURRENT) USE OF ANTICOAGULANTS SNOMED Code(s): 982217871 (10) right-sided aspiration pneumonia Current Visit: Yes Status: Acute Code(s): J18.9 - PNEUMONIA, UNSPECIFIED ORGANISM SNOMED Code(s): 639334888 (11) mild acute on chronic systolic CHF (12) possible endocarditis, cardiology and infectious disease following Plan: Continue on current medication regime ,monitoring and symptomatic treatment. Rediscussed subacute rehab. with patient. He is reconsidering, going to discuss this with his and will discuss again with him tomorrow. Continue close monitoring of renal function, electrolytes with repeat labs or dered for a.m. follow closely with nephrology. The impression and plan of care has been dictated as directed. : I performed a history and examination of this patient, discussed the same with the dictator. I agree with the dictator's note ,documented as a scribe. Any additional findings or plans will be noted.
[2020-01-24] MEDS: LEVOTHYROXINE 100 MCG TAB PO SCH (21:09)
--- NOTE | 2020-01-24 22:02 | PN ---
PROGRESS NOTE DATE OF SERVICE: 01/24/2020 REASON FOR FOLLOWUP: Pneumonia. INTERVAL HISTORY: The patient is currently afebrile, has been breathing comfortably. The patient denies having any chest pain, shortness of breath. Minimal cough. No nausea, no vomiting. No abdominal pain or diarrhea. PHYSICAL EXAMINATION: Blood pressure 160/81 with a pulse of 91, temperature 97.6. He is 98% on room air. General description is an elderly male lying in bed in no distress. RESPIRATORY SYSTEM: Unlabored breathing with decreased breath sounds at the base. No wheeze. HEART: S1, S2. Regular rate and rhythm. ABDOMEN: Soft. No tenderness. LABS: White count normalized yesterday at 10.5. Creatinine is 3.34. Blood culture has been negative. DIAGNOSTIC IMPRESSION AND PLAN: Patient with a cough, shortness of breath, concerning for pneumonia. Clinically not behaving as endocarditis. Patient is currently covered with Zosyn. White count is normal. To continue. Try to obtain a sputum sample. Monitor his clinical course closely. MMODL / IJN: [id number] /
[2020-01-25] MEDS: ATORVASTATIN 40 MG TAB PO SCH (08:07)
[2020-01-25] MEDS: METOPROLOL TARTRATE 25 MG TAB PO SCH ×2 (08:07→21:19)
[2020-01-25] MEDS: APIXABAN 2.5 MG TABLET PO SCH ×2 (08:07→21:19)
[2020-01-25] MEDS: PIPERACILLIN-TAZOBACTAM 3.375 GM in SODIUM CHLORIDE 0.9% 100 ML IVPB SCH ×2 (08:07→15:01)
--- NOTE | 2020-01-25 11:04 | P.PN ---
Subjective Progress Note Date: 01/25/20 This is a 69-year-old gentleman with past medical history significant for paroxysmal atrial fibrillation, on Eliquis for anticoagulation, coronary artery disease with prior bypass surgery, aortic valve replacement, hypertension, hyperlipidemia, he follows regularly with Dr. Onofre in the office. Presented to the hospital in acute renal failure. Patient was noted to have abnormality in troponin, not consistent with acute coronary syndrome. An echocardiogram with Doppler study was performed which revealed an ejection fraction of 45-50%, moderate mitral regurgitation, moderate aortic stenosis. Patient was seen and examined this morning, sitting up in his chair at bedside, he does state that he still feels mildly short of breath but overall better. Chin used to be somewhat confused this morning. Poor appetite. Blood pressure 118/60 with a heart rate of 90, 97% on room air. White blood cell count 10.8, hemoglobin 9.8, platelet count 132. Sodium 133, potassium 4.1, BUN 55, creatin ine 3.0. We will discontinue the IV heparin today and resume the patient's Eliquis. 01-23-2020 Patient was seen and examined this morning, overall he is feeling better, continues to be confused. Blood pressure 116/70 with a heart rate of 80, 94% on room air. White blood cell count 10.5, hemoglobin 9.7, platelet count 140. Sodium 134, potassium 4.2, BUN 15, creatinine 3.1. 01-24-2020 Patient was seen and examined this morning, overall is feeling mildly better. Continues to be quite confused. Blood pressure 122/70 with a heart rate of 90, 94% on room air. No laboratory data today. 01/25/2020 Patient was seen and examined this morning, continues to feel mildly better, arrangements are attempting to be made for the patient to go to rehab. He is still quite weak. Blood pressure 110/70, heart rate in the 90s, 96% on room air. No lab data today. Objective - Vital Signs Vital signs: Vital Signs Temp 98 F 01/25/20 08:00 Pulse 112 H 01/25/20 08:00 Resp 18 01/25/20 08:00 BP 110/70 01/25/20 08:00 Pulse Ox 96 01/25/20 08:00 Intake & Output 01/24/20 01/25/20 01/25/20 18:59 06:59 18:59 Intake Total 360 1080 120 Output Total 600 800 Balance -240 280 120 Weight 77.5 kg Intake: Oral 360 1080 120 Output: Urine 600 800 Other: Voiding Method Indwelling Catheter Indwelling Catheter Indwelling Catheter # Voids 0 # Bowel Movements 1 - Exam PHYSICAL EXAMINATION: GENERAL: 69-year-old gentleman in no acute distress at the time of my examination HEENT: Head is atraumatic, normocephalic. Pupils equal, round. Sclera anicteric. Conjunctiva are clear. Mucous membranes of the mouth are moist. Neck is supple. There is no elevated jugular venous pressure. No carotid bruit is heard. HEART EXAMINATION: Heart S1 and S2 irregularly irregular a systolic murmur is heard CHEST EXAMINATION: Lungs are clear to auscultation and precussion. No chest wall tenderness is noted on palpation or with deep breathing. ABDOMEN: Soft, nontender. Bowel sounds are heard. No organomegaly noted. EXTREMITIES: 2+ peripheral pulses with no evidence of peripheral edema and no calf tenderness noted. NEUROLOGIC patient is awake, alert and oriented 2 . . - Labs CBC & Chem 7: 01/23/20 07:34 01/24/20 09:29 Labs: Abnormal Lab Results - Last 24 Hours (Table) 01/23/20 01/23/20 01/24/20 Range/Units 10:37 10:37 09:29 Sodium 134 L (137-145) mmol/L BUN 46 H (9-20) mg/dL Creatinine 3.34 H (0.66-1.25) mg/dL Glucose 114 H (74-99) mg/dL Calcium 7.7 L (8.4-10.2) mg/dL Albumin 2.5 L (3.5-5.0) g/dL Complement C3 69.3 L (80.0-207.0) mg/dL Tot Complement (CH50) 34 L (42 - 95) U/mL Microbiology - Last 24 Hours (Table) 01/22/20 07:40 Blood Culture - Preliminary Blood No Growth after 72 hours 01/19/20 18:56 Blood Culture - Preliminary Blood No Growth after 120 hours 01/19/20 11:59 Blood Culture - Preliminary Blood No Growth after 120 hours 01/20/20 11:04 Blood Culture - Preliminary Blood No Growth after 96 hours Assessment and Plan Plan: Assessment and plan #1 acute renal failure #2 abnormality in troponin, not chest with acute coronary syndrome, likely s econdary to acute renal failure #3 paroxysmal atrial fibrillation, we will resume the patient's Eliquis ,lower the dose to 2-1/2 twice a day #4 history of aortic valve replacement #5 hypertension #6 hyperlipidemia #7 history of nicotine dependence Plan From cardiology's perspective, we'll continue with current medications. Discharge planning in place. DNP note has been reviewed, I agree with a documented findings and plan of care. Patient was seen and examined.
--- NOTE | 2020-01-25 11:12 | P.PN ---
Subjective Patient is seen in follow-up for acute kidney injury on chronic kidney disease. Currently maintained on normal saline. Oral intake fair. Nonoliguric. Has a Rodriguez catheter. No chest pain or shortness breath. Blood pressure stable. No changes overnight. No active complaints. Vital signs are stable. General: The patient appeared well nourished and normally developed. HEENT: Head exam is unremarkable. Neck is without jugular venous distension. LUNGS: Breath sounds decreased. HEART: Rate and Rhythm are regular. ABDOMEN: Soft, nontender. EXTREMITITES: No edema. Left lower extremity chronic discoloration noted. Objective - Vital Signs Vital signs: Vital Signs Temp 98 F 01/25/20 08:00 Pulse 112 H 01/25/20 08:00 Resp 18 01/25/20 08:00 BP 110/70 01/25/20 08:00 Pulse Ox 96 01/25/20 08:00 Intake & Output 01/24/20 01/25/20 01/25/20 18:59 06:59 18:59 Intake Total 360 1080 120 Output Total 600 800 Balance -240 280 120 Weight 77.5 kg Intake: Oral 360 1080 120 Output: Urine 600 800 Other: Voiding Method Indwelling Catheter Indwelling Catheter Indwelling Catheter # Voids 0 # Bowel Movements 1 - Labs CBC & Chem 7: 01/23/20 07:34 01/24/20 09:29 Labs: Abnormal Lab Results - Last 24 Hours (Table) 01/23/20 01/23/20 01/24/20 Range/Units 10:37 10:37 09:29 Sodium 134 L (137-145) mmol/L BUN 46 H (9-20) mg/dL Creatinine 3.34 H (0.66-1.25) mg/dL Glucose 114 H (74-99) mg/dL Calcium 7.7 L (8.4-10.2) mg/dL Albumin 2.5 L (3.5-5.0) g/dL Complement C3 69.3 L (80.0-207.0) mg/dL Tot Complement (CH50) 34 L (42 - 95) U/mL Microbiology - Last 24 Hours (Table) 01/22/20 07:40 Blood Culture - Preliminary Blood No Growth after 72 hours 01/19/20 18:56 Blood Culture - Preliminary Blood No Growth after 120 hours 01/19/20 11:59 Blood Culture - Preliminary Blood No Growth after 120 hours 01/20/20 11:04 Blood Culture - Preliminary Blood No Growth after 96 hours Assessment and Plan Plan: Assessment: 1. Acute kidney injury mostly prerenal secondary to hypotension and infection, improving with IV hydration. Creatinine was 4.97 on admission - 3.34 as of . Trace proteinuria on UA but also has hematuria. No hydronephrosis noted on kidney ultrasound. 2. Chronic kidney disease stage III with baseline creatinine in the range of 1.4-1.6 secondary to nephrosclerosis. 3. Metabolic acidosis secondary to acute kidney injury s/p bicarb drip. 4. A. fib with RVR. Now rate controlled. Maintained on Lopressor and anticoagulation. 5. Chronic systolic CHF with ejection fraction of 45-50%. 6. Pneumonia maintained on antibiotics. ?Endocarditis. Infectious disease following. 7. Hematuria and proteinuria. Rule out GN. Serologies negative so far except for low C3 and total complements. Rest pending. UPC 0.9. Plan: Continue normal saline at 50 mL an hour. Encouraged oral intake. Vancomycin discontinued. Continue to monitor renal function and urine output. I discussed with the patient the need for kidney biopsy for definitive diagnos is. Patient wants to continue to hold off at this time.
[2020-01-25 11:31] LABS: Calcium 7.7 mg/dL (8.4-10.2); Magnesium 1.9 mg/dL (1.6-2.3); Potassium 4.6 mmol/L (3.5-5.1)
--- NOTE | 2020-01-25 13:31 | P.CN ---
Psychiatric Consult - . Consult date: 01/25/20 Consult:: 01/25/20 13:04 IDENTIFYING DATA: This patient is a 69-year-old male who currently lives with his at home has 5 kids and lives in a house and collects Social Security. REASON FOR REFERRAL: Psychiatry was consulted for depression HISTORY OF PRESENT ILLNESS: The patient presented to the hospital initially on 01/18/2020 for weakness and shortness of breath. Patient has many medical comorbidities and was found to be in renal failure. Patient also was found to have CHF and developed A. fib with RVR while on the medical floor. Patient has CKD stage III. Patient was seen at the bedside and claims that he came into the hospital several days ago for lower left leg weakness and family that he was feeling short of breath. He denied any pain. 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 He claims that he feels guilty taking up a hospital bed and was asking about discharge going back home. He also spoke briefly about the pandemic and about how he would be at risk being in the hospital and also at rehab. He claims that he is unsure about his health and the plan and claims that his mood is "fine now" however did endorse mild depression at times. He was fairly future oriented and denied any anxiety. He denied any recent stressors in his life. He claims that he is continuing to have mild weakness generally. He states that he is able to sleep fairly last night. At this time patient denies any suicidal or homical ideations, intent or plan. Patient denies any auditory, visual hallucinations and denies any paranoia or delusions. Patients admits to using no recreational drugs and claimed that he quit cigarettes several years ago. PAST PSYCHIATRIC HISTORY: Patient has a a history of depression. Patient denies being on any psychiatric medications. Patient denies any previous psychiatric hospitalizations. Patient denies any psychiatric outpatient follow-up. Patient denies any history of suicide attempts in the past. PAST MEDICAL HISTORY: Hypertension, hyperlipidemia, atrial fibrillation, thyroid disorder, coronary artery disease with a history of CABG and aortic valve replacement.. ALLERGIES: as per EMR. CHEMICAL DEPENDENCY HISTORY: as per HPI. FAMILY PSYCHIATRIC/SUBSTANCE USE HISTORY: denies SOCIAL HISTORY: Patient was born and raised in [facility] and states that he also lived in [place]. He claims that he completed high school and worked on the [employer] for several years. He states that currently he lives with his in a house has 5 kids and collects Social Security. He states that he went to [facility] for stolen goods and for carrying weapons when he has a felony. MENTAL STATUS EXAM: General Appearance: Patient appears to be stated age is mildly lethargic, pleasant, and at times to be cooperative. Patient appears to have fair hygiene and grooming wearing hospital gown with poor eye contact. Behavior: Patient is calmly lying in bed without any agitated behavior. Speech: Patient's speech is fluent and nonpressured. [place]. Mood/Affect: Patient reports their mood is "fine now", affect is congruent and constricted Suicidality/Homicidality: Patient denies having any suicidal or homicidal ideation intent or plan. Perceptions: Patient denies any visual hallucinations and denies any auditory hallucinations Though content/process: There is no evidence of any delusional thought content and thought process is linear and goal-directed. Memory and concentration: AOX3, grossly intact for the purposes of this session. Can spell "WORLD" backwards Judgment and insight: limited IMPRESSIONS: Major Depressive disorder, mild PLAN: -At this time patient DOES NOT meet criteria for inpatient psychiatric admission. -Would recommend the following medication changes/additions: Office Aide discussed different antidepressant medication options however at this time patient was adamant that he does not want to be started on any medications for his mood. -patient was declining going to rehab due to safety with the current pandemic and wanting to be at home instead. 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 01/25/20 13:20
--- NOTE | 2020-01-25 14:20 | P.PN ---
Subjective Progress Note Date: 01/25/20 This is a 69 y/o male with h/o Hypothyroiodism, Afib, hypertension,and Hyperlipidemia who presented to [facility] ER with ftaigue. He was found to be in acute renal failure based on lab studies. He has been fluid recusitated somewhat. he appears to have some Acute CHF as well based on Xray findings. This am he developed AFIB with RVR and is now on Cardizem drip. he denies any Chest pain, pressure, SOB, nausea, vomiting or dysuria.He denies NSAID use as he is on LT anticoagulation 01/20/2020: Patient is still complaining of fatigue, but denies any chest pain pressure shortness breath at this time. He does have shortness of breath with exertion. A 2-D echo ordered by cardiology showed a questionable to the aortic valve. EF was 45-50%. There is moderate mitral regurgitation, moderate aortic stenosis, grade 2 diastolic dysfunction, mild mitral stenosis and mild tricuspid regurgitation. Nephrology diagnosed him with acute knee injury possibly ischemic ATN with hypotension. There are concerns regarding sepsis, however his lactic acid is been negative 2. Blood cultures are pending. Patient is currently on meropenem and vancomycin. He's been started on bicarbonate drip for metabolic acidosis. THE KIDNEY AND BLADDER WERE SUBOPTIMAL, BUT FAILED TO SHOW ANY HYDRONEPHROSIS. NO CONCERNING MASSES WERE SEEN. Chest x-ray this a.m. shows developing left basilar acute infiltrate and/or atelectasis. Suspect worsening CHF exacerbation. MAXIMUM TEMPERATURE overnight is 100.5 as of 1700. Blood pressures remained stable. 01/21/2020 continues on bicarb drip, bicarb uo to 23. Creatinine improving, down to 3.2. Eliquis on hold, anticoagulated on heparin drip. Hemoglobin 9.7, platelets 129. Afebrile, T-max 100.2, WBC 9.8 ,blood cultures remain negative at 24 hours. Denies chest pain, palpitations. Maintaining O2 sats in the 90s on 3 L nasal cannula. Chest x-ray completed , results pending. 01/22/2020 bicarb drip discontinued yesterday,maintained on IV fluid hydration of normal saline. Chest x-ray yesterday reporting more focal opacity right basilar and posterior basilar opacity's along with small effusions. Maintaining O2 sats in the low 90s on room air. Vancomycin discontinued, Zosyn initiated.Renal function continues to trend down. Currently anticoagulated on heparin drip. Significantly weak, Evaluated by PT/OT with subacute rehab recommended. Feels better today. Denies chest pain, palpitations or shortness of breath. Sodium 133. Afebrile, WBC 10.8. 01/23/2020 maintained on IV fluid hydration and broad-spectrum antibiotics .continues to feel better. Swallow evaluation/MBS reported no overt signs or symptoms of aspiration, normal swallow function. Diet intake ranging from 25- 75%. Renal function stable. Denies chest pain, palpitations or increasing shor tness of breath. 01/24/2020 no overnight event. Maintained on IV fluid hydration with mildly worsening renal function, creatinine at 3.35. Consuming 25-50%. Significant generalized weakness, requiring 1 person assist with standard walker. Staff reports patient does not tolerate sitting up in chair for very long. Denies chest pain, palpitations, shortness of breath. Maintaining O2 sats of high 90s on room air. T-max 99, blood cultures reporting no growth. 01/25/2020 continues on IV fluid hydration. BUN 45, creatinine 3.36. Nephrology recommending renal biopsy, patient declining at this time. Staff reported mild confusion earlier this morning. Continues to have significant weakness requiring 1 person assist with a walker. Recommending subacute rehab. Patient declining subacute rehab. Psych consult in place with recommendations pending. Denies chest pain, palpitations or shortness of breath. Objective - Vital Signs Vital signs: Vital Signs Temp 98 F 01/25/20 11:17 Pulse 101 H 01/25/20 13:20 Resp 18 01/25/20 11:17 BP 113/69 01/25/20 11:17 Pulse Ox 96 01/25/20 11:17 Intake & Output 01/24/20 01/25/20 01/25/20 18:59 06:59 18:59 Intake Total 360 1080 620 Output Total 600 800 Balance -240 280 620 Weight 77.5 kg Intake: IV 500 Piperacillin-Tazobactam 3 100 .375 gm In Sodium Chloride 0.9% 100 ml @ 25 mls/hr IVPB Q8HR [facility] Rx# :[id number] Sodium Chloride 0.9% 1, 400 000 ml @ 50 mls/hr IV . Q20H [facility] Rx#:[id number] Oral 360 1080 120 Output: Urine 600 800 Other: Voiding Method Indwelling Catheter Indwelling Catheter Indwelling Catheter # Voids 0 # Bowel Movements 1 - Exam General: Lying in bed , alert and oriented 2-3, no acute distress, tired appearing Neck: The neck is supple, no JVD. Cardiovascular: S1S2 is normal, There is a regular rate and rhythm. Mild tachycardia. No rub or gallop is appreciated. Positive systolic murmur. Respiratory: Lungs are coarse, bilateral bases diminished. Gastrointestinal: Soft, non-distended, non-tender abdomen without masses or organomegaly noted. No guarding present. Positive Bowel sounds. Musculoskeletal: Normal ROM, no tenderness,no pedal edema. no calf tenderness or swelling. Neurological: CN II-XII intact, no focal deficits. Strength and sensation grossly intact. Skin: Skin is warm and dry, no rashes are noted. Microbiology 01/19/20 11:59 Blood Blood Culture - Final No Growth after 144 hours 01/20/20 11:04 Blood Blood Culture - Preliminary No Growth after 120 hours 01/22/20 07:40 Blood Blood Culture - Preliminary No Growth after 72 hours 01/19/20 18:56 Blood Blood Culture - Preliminary No Growth after 120 hours - Labs CBC & Chem 7: 01/23/20 07:34 01/25/20 10:33 Labs: Abnormal Lab Results - Last 24 Hours (Table) 01/23/20 01/25/20 Range/Units 10:37 10:33 Sodium 134 L (137-145) mmol/L Chloride 109 H (98-107) mmol/L Carbon Dioxide 20 L (22-30) mmol/L BUN 45 H (9-20) mg/dL Creatinine 3.36 H (0.66-1.25) mg/dL Glucose 104 H (74-99) mg/dL Calcium 7.7 L (8.4-10.2) mg/dL Tot Complement (CH50) 34 L (42 - 95) U/mL Microbiology - Last 24 Hours (Table) 01/20/20 11:04 Blood Culture - Preliminary Blood No Growth after 120 hours 01/22/20 07:40 Blood Culture - Preliminary Blood No Growth after 72 hours 01/19/20 18:56 Blood Culture - Preliminary Blood No Growth after 120 hours 01/19/20 11:59 Blood Culture - Preliminary Blood No Growth after 120 hours Assessment and Plan Assessment: (1) ARF (acute renal failure) Current Visit: Yes Status: Acute Code(s): N17.9 - ACUTE KIDNEY FAILURE, UNSPECIFIED SNOMED Code(s): 52213663 (2) Atrial fibrillation with RVR Current Visit: Yes Status: Acute Code(s): I48.91 - UNSPECIFIED ATRIAL FIBRILLATION SNOMED Code(s): 570912909224115 (3) Elevated troponin level, possibly related to acute renal failure, not acute coronary syndrome as per cardiology Current Visit: Yes Status: Acute Code(s): R77.8 - OTHER SPECIFIED ABNORMALITIES OF PLASMA PROTEINS SNOMED Code(s): 711021761 (4) Acquired hypothyroidism Current Visit: Yes Status: Acute Code(s): E03.9 - HYPOTHYROIDISM, UNSPECIFIED SNOMED Code(s): 566857822 (5) Mixed hyperlipidemia Current Visit: Yes Status: Acute Code(s): E78.2 - MIXED HYPERLIPIDEMIA SNOMED Code(s): 081167569 (6) Essential (primary) hypertension Current Visit: Yes Status: Acute Code(s): I10 - ESSENTIAL (PRIMARY) HYPERTENSION SNOMED Code(s): 74297557 (7) hypoxic respiratory failure (8) H/O aortic valve replacement Current Visit: Yes Status: Acute Code(s): Z95.2 - PRESENCE OF PROSTHETIC HEART VALVE SNOMED Code(s): 7988405066045 (9) USP (current) use of anticoagulants Current Visit: Yes Status: Acute Code(s): Z79.01 - WIRE BENDER HAND (CURRENT) USE OF ANTICOAGULANTS SNOMED Code(s): 620914470 (10) right-sided aspiration pneumonia Current Visit: Yes Status: Acute Code(s): J18.9 - PNEUMONIA, UNSPECIFIED ORGANISM SNOMED Code(s): 344087847 (11) mild acute on chronic systolic CHF (12) possible endocarditis, cardiology and infectious disease following. Cardiology reported no need for KRYSTAL as blood cultures were negative. (13) acute metabolic encephalopathy, multifactorial Plan: Continue on current medication regime ,monitoring and symptomatic treatment. Discharge planning in progress for subacute rehab with the assistance of social work. Patient is unsafe, too weak for discharge home. Attempting to discuss with as well via phone.patient has been cleared by nephrology for discharge , as he is declining kidney biopsy. psychiatry evaluation pending. The impression and plan of care has been dictated as directed. : I performed a history and examination of this patient, discussed the same with the dictator. I agree with the dictator's note ,documented as a scribe. Any additional findings or plans will be noted.
[2020-01-25 14:45] LABS: C-ANCA <1:20 Titer (<1:20)
--- NOTE | 2020-01-25 15:46 | P.PN ---
Subjective Progress Note Date: 01/25/20 Principal diagnosis: Right sided aspiration pneumonia Acute kidney injury Atrial fibrillation with RVR Acute on chronic systolic heart failure baseline ejection fraction of 45% Mild CHF with pleural effusion and basal atelectasis 02/04/2020, patient seen eval examined during the rounds labs reviewed medications reviewed, patient remains stable off of supplemental oxygen duration 98%, hemodynamic status stable, 01/24/2020, patient seen eval examined during the rounds labs reviewed medications reviewed care plan discussed, patient remains on room air denies any chest pain shortness of breath, he remains afebrile, oxygen saturation 98%, 01/23/2020, patient seen eval examined during the rounds labs reviewed medications reviewed care plan discussed, send dose has been adjusted, patient is on oral direct anticoagulant, Today Reviewed White Cell Count Is Improved, Renal Functions Remains Elevated but Stable BUN/creatinine Is 15 3.15, This is a 69-year-old male with multiple medical problems and issues including chronic atrial fibrillation and hypothyroidism hypertension hypertensive cardiovascular disease, patient presented into the hospital in emergency depart ment with generalized weakness fatigue found to be on acute renal failure, patient has been resuscitated with IV fluids are pierced to be slightly fluid overload, renal services has been following, patient has been on broad-spectrum antibiotics with Zosyn chest x-ray showed right basilar infiltrate and small effusion, patient however remains on room air oxygen saturation 90%, Objective - Vital Signs Vital signs: Vital Signs Temp 98.5 F 01/25/20 15:04 Pulse 83 01/25/20 15:04 Resp 14 01/25/20 15:04 BP 102/64 01/25/20 15:04 Pulse Ox 98 01/25/20 15:04 Intake & Output 01/24/20 01/25/20 01/25/20 18:59 06:59 18:59 Intake Total 360 1080 620 Output Total 600 800 400 Balance -240 280 220 Weight 77.5 kg Intake: IV 500 Piperacillin-Tazobactam 3 100 .375 gm In Sodium Chloride 0.9% 100 ml @ 25 mls/hr IVPB Q8HR [facility] Rx# :[id number] Sodium Chloride 0.9% 1, 400 000 ml @ 50 mls/hr IV . Q20H [facility] Rx#:[id number] Oral 360 1080 120 Output: Urine 600 800 400 Other: Voiding Method Indwelling Catheter Indwelling Catheter Indwelling Catheter # Voids 0 # Bowel Movements 1 - Exam - Constitutional General appearance: average body habitus, disheveled - EENT Eyes: PERRLA Ears: bilateral: normal - Neck Carotids: bilateral: upstroke normal Thyroid: bilateral: normal size - Respiratory Respiratory: bilateral: diminished (Basal crackles predominantly on the right side compared to left side) - Cardiovascular Rhythm: irregularly irregular Heart sounds: normal: S1, S2 - Gastrointestinal General gastrointestinal: soft - Neurologic Neurologic: CNII-XII intact - Musculoskeletal Musculoskeletal: gait normal, generalized weakness, strength equal bilaterally - Psychiatric Psychiatric: A&O x's 3, appropriate affect, intact judgment & insight - Labs CBC & Chem 7: 01/23/20 07:34 01/25/20 10:33 Labs: Abnormal Lab Results - Last 24 Hours (Table) 01/23/20 01/25/20 Range/Units 10:37 10:33 Sodium 134 L (137-145) mmol/L Chloride 109 H (98-107) mmol/L Carbon Dioxide 20 L (22-30) mmol/L BUN 45 H (9-20) mg/dL Creatinine 3.36 H (0.66-1.25) mg/dL Glucose 104 H (74-99) mg/dL Calcium 7.7 L (8.4-10.2) mg/dL Tot Complement (CH50) 34 L (42 - 95) U/mL Microbiology - Last 24 Hours (Table) 01/19/20 11:59 Blood Culture - Final Blood No Growth after 144 hours 01/20/20 11:04 Blood Culture - Preliminary Blood No Growth after 120 hours 01/22/20 07:40 Blood Culture - Preliminary Blood No Growth after 72 hours 01/19/20 18:56 Blood Culture - Preliminary Blood No Growth after 120 hours Assessment and Plan Assessment: Right sided aspiration pneumonia Acute kidney injury Atrial fibrillation with RVR Acute on chronic systolic heart failure baseline ejection fraction of 45% Mild CHF with pleural effusion and basal atelectasis Plan: Broad-spectrum antibiotics, and can be switched to oral like Augmentin 500 twice a day for 3-4 days Deep breathing exercises incentive spirometry The coagulation for atrial fibrillation Increase activity as tolerated Titrated oxygen down Time with Patient: Greater than 30
[2020-01-25] MEDS: SODIUM CHLORIDE 0.9% 1,000 ML IV SCH (16:19)
[2020-01-25] MEDS: LEVOTHYROXINE 100 MCG TAB PO SCH (21:19)
--- NOTE | 2020-01-25 22:57 | PN ---
PROGRESS NOTE DATE OF SERVICE: 01/25/2020 REASON FOR FOLLOWUP: Pneumonia. INTERVAL HISTORY: Patient is currently afebrile. The patient is breathing more comfortably. The patient denies having any chest pain or shortness of breath. Minimal cough. No nausea, vomiting, abdominal pain, or diarrhea. PHYSICAL EXAMINATION: Blood pressure 102/64, pulse of 83, temperature 98.5. He is 98% on room air. General description is an elderly male lying in bed in no distress. Respiratory system: Unlabored breathing. Clear to auscultation anteriorly. Heart S1, S2. Regular rate and rhythm. ABDOMEN: Soft, no tenderness. LAB: BUN 45, creatinine 3.36. DIAGNOSTIC IMPRESSION AND PLAN: Patient with fever, concerning for pneumonia in this patient currently covered with Zosyn to continue. Blood culture negative. Sputum not collected. Monitor clinical course closely. MMODL / IJN: [id number] /
[2020-01-26] MEDS: PIPERACILLIN-TAZOBACTAM 3.375 GM in SODIUM CHLORIDE 0.9% 100 ML IVPB SCH ×2 (00:52→08:35)
[2020-01-26 04:45] LABS: Basophils % (A) 0 %; Eosinophils # (A) 0.1 k/uL (0-0.7); Eosinophils % (A) 1 %; HCT 29.1 % (39.0-53.0); HGB 9.8 gm/dL (13.0-17.5); Lymphocytes # (A) 3.6 k/uL (1.0-4.8); Lymphocytes % (A) 32 %; MCH 31.4 pg (25.0-35.0); MCHC 33.7 g/dL (31.0-37.0); Mean Platelet Volume 9.8; Monocytes # (A) 0.5 k/uL (0-1.0); Monocytes % (A) 4 %; Neutrophils # (A) 6.8 k/uL (1.3-7.7); Neutrophils % (A) 60 %; Platelet Count 164 k/uL (150-450); RBC 3.13 m/uL (4.30-5.90); RDW 14.5 % (11.5-15.5); WBC 11.3 k/uL (3.8-10.6)
[2020-01-26 04:55] LABS: Calcium 7.9 mg/dL (8.4-10.2); Magnesium 1.9 mg/dL (1.6-2.3); Potassium 4.5 mmol/L (3.5-5.1)
[2020-01-26] MEDS: APIXABAN 2.5 MG TABLET PO SCH (08:34)
[2020-01-26] MEDS: METOPROLOL TARTRATE 25 MG TAB PO SCH (08:34)
[2020-01-26] MEDS: ATORVASTATIN 40 MG TAB PO SCH (08:35)
[2020-01-26 08:44] VITALS: BP 106/73; PULSE 81; RESP 17; TEMP 97.5
--- NOTE | 2020-01-26 09:52 | P.PN ---
Subjective Progress Note Date: 01/26/20 Principal diagnosis: Right sided aspiration pneumonia Acute kidney injury Atrial fibrillation with RVR Acute on chronic systolic heart failure baseline ejection fraction of 45% Mild CHF with pleural effusion and basal atelectasis 01/26/2020, patient seen eval examined during the rounds labs reviewed medications reviewed care plan discussed overall respiratory status remains stable on room air saturation 95-96%, denies any cough or sputum production, Zosyn can be changed to oral Augmentin for 4-5 days then DC it, agree with discharge planning 01/25/2020, patient seen eval examined during the rounds labs reviewed medications reviewed, patient remains stable off of supplemental oxygen duration 98%, hemodynamic status stable, 01/24/2020, patient seen eval examined during the rounds labs reviewed medications reviewed care plan discussed, patient remains on room air denies any chest pain shortness of breath, he remains afebrile, oxygen saturation 98%, 01/23/2020, patient seen eval examined during the rounds labs reviewed medications reviewed care plan discussed, send dose has been adjusted, patient is on oral direct anticoagulant, Today Reviewed White Cell Count Is Improved, Renal Functions Remains Elevated but Stable BUN/creatinine Is 15 3.15, This is a 69-year-old male with multiple medical problems and issues including chronic atrial fibrillation and hypothyroidism hypertension hypertensive cardiovascular disease, patient presented into the hospital in emergency department with generalized weakness fatigue found to be on acute renal failure, patient has been resuscitated with IV fluids are pierced to be slightly fluid overload, renal services has been following, patient has been on broad-spectrum antibiotics with Zosyn chest x-ray showed right basilar infiltrate and small effusion, patient however remains on room air oxygen saturation 90%, Objective - Vital Signs Vital signs: Vital Signs Temp 97.5 F L 01/26/20 08:00 Pulse 81 01/26/20 08:00 Resp 17 01/26/20 08:00 BP 106/73 01/26/20 08:00 Pulse Ox 94 L 01/26/20 08:00 Intake & Output 01/25/20 01/26/20 01/26/20 18:59 06:59 18:59 Intake Total 620 300 Output Total 400 1500 Balance 220 -1200 Weight 78.5 kg Intake: IV 500 300 Piperacillin-Tazobactam 3 100 100 .375 gm In Sodium Chloride 0.9% 100 ml @ 25 mls/hr IVPB Q8HR [facility] Rx# :[id number] Sodium Chloride 0.9% 1, 400 200 000 ml @ 50 mls/hr IV . Q20H [facility] Rx#:[id number] Oral 120 Output: Urine 400 1500 Uretheral (Rodriguez) 500 Other: Voiding Method Indwelling Catheter Indwelling Catheter - Exam - Constitutional General appearance: average body habitus, disheveled - EENT Eyes: PERRLA Ears: bilateral: normal - Neck Carotids: bilateral: upstroke normal Thyroid: bilateral: normal size - Respiratory Respiratory: bilateral: diminished (Basal crackles predominantly on the right side compared to left side) - Cardiovascular Rhythm: irregularly irregular Heart sounds: normal: S1, S2 - Gastrointestinal General gastrointestinal: soft - Neurologic Neurologic: CNII-XII intact - Musculoskeletal Musculoskeletal: gait normal, generalized weakness, strength equal bilaterally - Psychiatric Psychiatric: A&O x's 3, appropriate affect, intact judgment & insight - Labs CBC & Chem 7: 01/26/20 04:25 01/26/20 04:25 Labs: Abnormal Lab Results - Last 24 Hours (Table) 01/25/20 01/26/20 01/26/20 Range/Units 10:33 04:25 04:25 WBC 11.3 H (3.8-10.6) k/uL RBC 3.13 L (4.30-5.90) m/uL Hgb 9.8 L (13.0-17.5) gm/dL Hct 29.1 L (39.0-53.0) % Sodium 134 L 133 L (137-145) mmol/L Chloride 109 H 110 H (98-107) mmol/L Carbon Dioxide 20 L 18 L (22-30) mmol/L BUN 45 H 44 H (9-20) mg/dL Creatinine 3.36 H 3.45 H (0.66-1.25) mg/dL Glucose 104 H 103 H (74-99) mg/dL Calcium 7.7 L 7.9 L (8.4-10.2) mg/dL Microbiology - Last 24 Hours (Table) 01/22/20 07:40 Blood Culture - Preliminary Blood No Growth after 96 hours 01/19/20 18:56 Blood Culture - Final Blood No Growth after 144 hours 01/19/20 11:59 Blood Culture - Final Blood No Growth after 144 hours 01/20/20 11:04 Blood Culture - Preliminary Blood No Growth after 120 hours Assessment and Plan Assessment: Right sided aspiration pneumonia Acute kidney injury Atrial fibrillation with RVR Acute on chronic systolic heart failure baseline ejection fraction of 45% Mild CHF with pleural effusion and basal atelectasis Plan: Broad-spectrum antibiotics, and can be switched to oral like Augmentin 500 twice a day for 3-4 days Deep breathing exercises incentive spirometry The coagulation for atrial fibrillation Increase activity as tolerated Titrated oxygen down Time with Patient: Greater than 30
--- NOTE | 2020-01-26 11:17 | P.PN ---
Subjective Patient is seen in follow-up for acute kidney injury on chronic kidney disease. Currently maintained on normal saline. Oral intake fair. Nonoliguric. Has a Rodriguez catheter. No chest pain or shortness breath. Blood pressure stable. No changes overnight. No active complaints. Vital signs are stable. General: The patient appeared well nourished and normally developed. HEENT: Head exam is unremarkable. Neck is without jugular venous distension. LUNGS: Breath sounds decreased. HEART: Rate and Rhythm are regular. ABDOMEN: Soft, nontender. EXTREMITITES: No edema. Left lower extremity chronic discoloration noted. Objective - Vital Signs Vital signs: Vital Signs Temp 97.5 F L 01/26/20 08:00 Pulse 81 01/26/20 08:00 Resp 17 01/26/20 08:00 BP 106/73 01/26/20 08:00 Pulse Ox 94 L 01/26/20 08:00 Intake & Output 01/25/20 01/26/20 01/26/20 18:59 06:59 18:59 Intake Total 620 300 120 Output Total 400 1500 200 Balance 220 -1200 -80 Weight 78.5 kg Intake: IV 500 300 Piperacillin-Tazobactam 3 100 100 .375 gm In Sodium Chloride 0.9% 100 ml @ 25 mls/hr IVPB Q8HR [facility] Rx# :[id number] Sodium Chloride 0.9% 1, 400 200 000 ml @ 50 mls/hr IV . Q20H [facility] Rx#:[id number] Oral 120 120 Output: Urine 400 1500 200 Uretheral (Rodriguez) 500 Other: Voiding Method Indwelling Catheter Indwelling Catheter Indwelling Catheter - Labs CBC & Chem 7: 01/26/20 04:25 01/26/20 04:25 Labs: Abnormal Lab Results - Last 24 Hours (Table) 01/25/20 01/26/20 01/26/20 Range/Units 10:33 04:25 04:25 WBC 11.3 H (3.8-10.6) k/uL RBC 3.13 L (4.30-5.90) m/uL Hgb 9.8 L (13.0-17.5) gm/dL Hct 29.1 L (39.0-53.0) % Sodium 134 L 133 L (137-145) mmol/L Chloride 109 H 110 H (98-107) mmol/L Carbon Dioxide 20 L 18 L (22-30) mmol/L BUN 45 H 44 H (9-20) mg/dL Creatinine 3.36 H 3.45 H (0.66-1.25) mg/dL Glucose 104 H 103 H (74-99) mg/dL Calcium 7.7 L 7.9 L (8.4-10.2) mg/dL Microbiology - Last 24 Hours (Table) 01/22/20 07:40 Blood Culture - Preliminary Blood No Growth after 96 hours 01/19/20 18:56 Blood Culture - Final Blood No Growth after 144 hours 01/19/20 11:59 Blood Culture - Final Blood No Growth after 144 hours 01/20/20 11:04 Blood Culture - Preliminary Blood No Growth after 120 hours Assessment and Plan Plan: Assessment: 1. Acute kidney injury mostly prerenal secondary to hypotension and infection, improving with IV hydration. Creatinine was 4.97 on admission - 3.45 today. Trace proteinuria on UA but also has hematuria. No hydronephrosis noted on kidney ultrasound. 2. Chronic kidney disease stage III with baseline creatinine in the range of 1.4-1.6 secondary to nephrosclerosis. 3. Metabolic acidosis secondary to acute kidney injury s/p bicarb drip. 4. A. fib with RVR. Now rate controlled. Maintained on Lopressor and anticoagulation. 5. Chronic systolic CHF with ejection fraction of 45-50%. 6. Pneumonia maintained on antibiotics. ?Endocarditis. Infectious disease following. 7. Hematuria and proteinuria. Rule out GN. Serologies negative so far except for low C3 and total complements. UPC 0.9. Plan: Hep-Lock IV fluids. Encouraged oral intake. Continue to monitor renal function and urine output. I discussed with the patient the need for kidney biopsy for definitive diagnosis. Patient continues to refuse and wants to hold off at this time. Check urine eosinophils. Add oral sodium bicarbonate. Patient will need to follow up outpatient 1 week post discharge.
--- NOTE | 2020-01-26 11:29 | P.DS ---
Providers Date of admission: 01/18/20 22:30 Expected date of discharge: 01/26/20 Attending physician: Dustin Sands Consults: 01/18/20 22:30 Consult Physician Routine Consulting Provider: Paola Greco Consult Reason/Comments: chf Do you want consulting provider notified?: Yes Consult Physician Routine Consulting Provider: Kimberlee Shane Consult Reason/Comments: arf Do you want consulting provider notified?: Yes 01/20/20 10:45 Consult Physician Routine Consulting Provider: Flakita Braxton Consult Reason/Comments: pnreumonia and possible endocarditis Do you want consulting provider notified?: Yes 01/22/20 15:13 Consult Physician Routine Consulting Provider: Thiago Mehta Consult Reason/Comments: hypoxia, rllpneumonia/pl effusion Do you want consulting provider notified?: Yes 01/24/20 15:49 Consult Physician Routine Consulting Provider: Jose Guadalupe Felix Consult Reason/Comments: depression Do you want consulting provider notified?: Already Contacted Primary care physician: [facility] Course: Patient admitted and moderate cardiac stress week ejection fraction 45-50%, known drinker probable alcoholic cardiomyopathy known aortic stenosis with repair, A. fib with RVR rate is now controlled on Lopressor and anticoagulant Patient denies alcohol however he thinks the year is a soft drink and doesn't count that as alcohol consumption, drinks beer daily hence the reason he is refusing rehab placement and hence the reason he is refusing kidney biopsy General: [Patient awake, alert and oriented times 3. Patient in no acute distress.] HEENT: [PERRL. EOMI. No pharyngeal erythema or exudate.] Neck: [No adenopathy.] Cardiac: [Heart rate is controlled No S3. No S4. No clicks, rubs. No murmur.] Lungs: [Clear to auscultation bilaterally.] Abdomen: [No mass. No organomegaly. Bowel sounds presnt and normoactive in all 4 quadrants.] Extremes: [No edema no cyanosis no claudication normal pulses] : [] Musculoskeletal: [No joint erythema, edema or tenderness.] Skin: [No rash.] Neurologic: [No lateralizing deficits. CN II - XII grossly intact.] Lymphatic: [No adenopathy.] Patient Condition at Discharge: Fair Plan - Discharge Summary Discharge Rx Participant: Yes New Discharge Prescriptions: No Action Atorvastatin [Lipitor] 40 mg PO DAILY Potassium Chloride [Klor-Con 20] 20 meq PO DAILY Levothyroxine Sodium 100 mcg PO HS Furosemide [Lasix] 40 mg PO DAILY Apixaban [Eliquis] 5 mg PO BID Metoprolol Succinate [Toprol XL] 100 mg PO HS Losartan [Cozaar] 25 mg PO DAILY Discharge Medication List Atorvastatin [Lipitor] 40 mg PO DAILY 07/03/14 [History] Furosemide [Lasix] 40 mg PO DAILY 10/19/17 [History] Levothyroxine Sodium 100 mcg PO HS 10/19/17 [History] Potassium Chloride [Klor-Con 20] 20 meq PO DAILY 10/19/17 [History] Apixaban [Eliquis] 5 mg PO BID 10/23/19 [History] Metoprolol Succinate [Toprol XL] 100 mg PO HS 01/18/20 [History] Losartan [Cozaar] 25 mg PO DAILY 01/19/20 [History] Follow up Appointment(s)/Referral(s): [facility], [NON-STAFF] - Dustin Sands Jr, [Primary Care Provider] - 1-2 days
[2020-01-26] MEDS ORDERED: SODIUM BICARBONATE TAB 650 MG TAB PO SCH (11:30)
--- NOTE | 2020-01-26 12:43 | P.PN ---
Subjective Progress Note Date: 01/26/20 This a pleasant 69-year-old gentleman with a past medical history significant for paroxysmal atrial fibrillation, on Eliquis for anticoagulation, coronary artery disease with prior bypass surgery, aortic valve replacement, hypertension, hyperlipidemia. He follows up in the office regularly with Dr. Pearce. Presented to the hospital in acute renal failure. Patient was noted to have abnormality in troponin, not consistent with acute coronary syndrome. An echocardiogram with Doppler study was performed which revealed ejection fraction of 45-50%, moderate MR and moderate . The patient was seen and examined this morning. He is overall feeling well. He was initially thought to be a anderson date for rehab following discharge however patient refused. He apparently drinks beer every day and does not want to quit. Labs this morning showed BUN of 44 and creatinine 3.45 which is up from yesterday. He is being followed closely by nephrology. Vital signs are stable this morning. Objective - Vital Signs Vital signs: Vital Signs Temp 97.5 F L 01/26/20 08:00 Pulse 81 01/26/20 08:00 Resp 17 01/26/20 08:00 BP 106/73 01/26/20 08:00 Pulse Ox 94 L 01/26/20 08:00 Intake & Output 01/25/20 01/26/20 01/26/20 18:59 06:59 18:59 Intake Total 620 300 120 Output Total 400 1500 200 Balance 220 -1200 -80 Weight 78.5 kg Intake: IV 500 300 Piperacillin-Tazobactam 3 100 100 .375 gm In Sodium Chloride 0.9% 100 ml @ 25 mls/hr IVPB Q8HR NELLIE Rx# :[id number] Sodium Chloride 0.9% 1, 400 200 000 ml @ 50 mls/hr IV . Q20H NELLIE Rx#:[id number] Oral 120 120 Output: Urine 400 1500 200 Uretheral (Rodriguez) 500 Other: Voiding Method Indwelling Catheter Indwelling Catheter Indwelling Catheter - Exam PHYSICAL EXAMINATION: GENERAL: 69-year-old gentleman in no acute distress at the time of my examination HEENT: Head is atraumatic, normocephalic. Pupils equal, round. Sclera anicteric. Conjunctiva are clear. Mucous membranes of the mouth are moist. Neck is supple. There is no elevated jugular venous pressure. No carotid bruit is heard. HEART EXAMINATION: Heart S1 and S2 irregularly irregular a systolic murmur is heard CHEST EXAMINATION: Lungs are clear to auscultation and precussion. No chest wall tenderness is noted on palpation or with deep breathing. ABDOMEN: Soft, nontender. Bowel sounds are heard. No organomegaly noted. EXTREMITIES: 2+ peripheral pulses with no evidence of peripheral edema and no calf tenderness noted. NEUROLOGIC patient is awake, alert and oriented 2 . - Labs CBC & Chem 7: 01/26/20 04:25 01/26/20 04:25 Labs: Abnormal Lab Results - Last 24 Hours (Table) 01/26/20 01/26/20 Range/Units 04:25 04:25 WBC 11.3 H (3.8-10.6) k/uL RBC 3.13 L (4.30-5.90) m/uL Hgb 9.8 L (13.0-17.5) gm/dL Hct 29.1 L (39.0-53.0) % Sodium 133 L (137-145) mmol/L Chloride 110 H (98-107) mmol/L Carbon Dioxide 18 L (22-30) mmol/L BUN 44 H (9-20) mg/dL Creatinine 3.45 H (0.66-1.25) mg/dL Glucose 103 H (74-99) mg/dL Calcium 7.9 L (8.4-10.2) mg/dL Microbiology - Last 24 Hours (Table) 01/22/20 07:40 Blood Culture - Preliminary Blood No Growth after 96 hours 01/19/20 18:56 Blood Culture - Final Blood No Growth after 144 hours 01/19/20 11:59 Blood Culture - Final Blood No Growth after 144 hours 01/20/20 11:04 Blood Culture - Preliminary Blood No Growth after 120 hours Assessment and Plan Assessment: #1 acute renal failure #2 abnormality in troponin, not consistent with acute coronary syndrome, likely secondary to acute renal failure #3 paroxysmal atrial fibrillation, anticoagulated on Eliquis and a half milligrams by mouth twice a day #4 history of aortic valve replacement #5 hypertension #6 hyperlipidemia #7 history of nicotine dependence Plan: From cardiology's perspective medications were reviewed and we'll continue the same. Discharge planning is in place. The above dictated assessment and findings were discussed with signing physician. The impression and plan of care have been directed as dictated. Crystal Janine, Nurse Practitioner, acting as scribe for signing physician.
--- NOTE | 2020-01-28 11:35 | CDI ---
Documentation Clarification Form Date: 01/28/20 From: Eileen Jain CCS Phone: If you have a question about this query, please contact Nunu Xie, Data Systems Analyst at [phone] between 8am and 5pm. Admit Date: 01/18/20 Discharge Date:01/26/20 Patient Name: Orville Ba Visit Number: [id number] ATTENTION: The Clinical Documentation Specialists (CDI) and [facility] Coding Staff appreciate your assistance in clarifying documentation. Please respond to the clarification below the line at the bottom and electronically sign. The CDI & [facility] Coding staff will review the response and follow-up if needed. Please note: Queries are made part of the Legal Health Record. If you have any questions, please contact the author of this message via ITS. Dear Dr. Sands, The patient presented with the following respiratory symptoms Acute pulmonary edema, Congestive heart failure, ARF (acute renal failure), Hypoxia, Pneumonia History/Risk Factors: PNA, CHF, HTN, CKD, AFIB, CAD, Valve disease Tobacco use: History Home oxygen: none Clinical Indicators: Hyoxia Vital signs: BP 93/60, RR 20, PA 92, O2 Sat 84 Lung/Breathing assessment: Lungs are coarse with bibasilar crackles and questionable rhonchi noted developing to the left Treatment: Oxygen nasal cannula 2 lpm In your professional opinion, can you please clarify if these findings signify one of the following conditions? Acute Respiratory Failure Acute on Chronic Respiratory Failure Chronic Respiratory Failure Other Diagnosis, please specify Unable to determine see progress note addendum MTDD
[2020-01-29 13:17] LABS: Albumin 2.28 g/dL (3.80-4.90); Gamma Globulin 2.95 g/dL (0.70-1.50)
== END 2020-01-26 17:14 | disposition home health service (06) | DRG 682 ==
LOC: EC 19:46 → 3SCARD 22:30
PROVIDERS: ADMIT Family Medicine; ATTEND Family Medicine
DX: N17.0 Acute kidney failure with tubular necrosis (principal); I50.43 Acute on chronic combined systolic (congestive) and diastolic (congestive) heart failure; J69.0 Pneumonitis due to inhalation of food and vomit; G93.41 Metabolic encephalopathy; J96.01 Acute respiratory failure with hypoxia; I13.0 Hypertensive heart and chronic kidney disease with heart failure and stage 1 through stage 4 chronic kidney disease, or unspecified chronic kidney disease; E87.2 Acidosis; I42.6 Alcoholic cardiomyopathy; Z20.828 Contact with and (suspected) exposure to other viral communicable diseases; I95.9 Hypotension, unspecified; F10.20 Alcohol dependence, uncomplicated; I48.0 Paroxysmal atrial fibrillation; N18.30 Chronic kidney disease, stage 3 unspecified; E78.2 Mixed hyperlipidemia; I25.10 Atherosclerotic heart disease of native coronary artery without angina pectoris; E03.9 Hypothyroidism, unspecified; R31.9 Hematuria, unspecified; I08.3 Combined rheumatic disorders of mitral, aortic and tricuspid valves; R77.8 Other specified abnormalities of plasma proteins; R80.9 Proteinuria, unspecified; Z53.29 Procedure and treatment not carried out because of patient's decision for other reasons; F32.9 Major depressive disorder, single episode, unspecified; Y90.0 Blood alcohol level of less than 20 mg/100 ml; Z71.3 Dietary counseling and surveillance; Z79.899 Other long term (current) drug therapy; Z79.01 Long term (current) use of anticoagulants; Z95.2 Presence of prosthetic heart valve; Z95.1 Presence of aortocoronary bypass graft; Z90.81 Acquired absence of spleen; Z87.891 Personal history of nicotine dependence
CPT/HCPCS: 36415; 51702; 71045; 71046; 76770; 80048; 80053; 80074; 80202; 80306; 80320; 81001; 82550; 82570; 83605; 83615; 83735; 83880; 84100; 84134; 84145; 84156; 84165; 84443; 84484; 85025; 85610; 85652; 85730; 86038; 86140; 86160; 86162; 86225; 86255; 86334; 86335; 87040; 87635; 93005; 93306; 96361; 96365; 96366; 96372; 96375; 96376; 99291

== ENCOUNTER 2020-02-12 13:04 | Day surgery (SDC) | payer BC, MEDICARE ==
[2020-02-11 09:12] VITALS: BMI 34.5
[~2020-02-12 13:04] MED LIST changes: -BENZOCAINE SPRAY 1 CAN MUCOUS MEM ONE; -LIDOCAINE 1% INJ 10MG/ML (20 ML MDV) ONE; -PROPOFOL 10 MG/ML 20 ML VIAL IV ONE
[2020-02-12] MEDS ORDERED: PROPOFOL 10 MG/ML 20 ML VIAL IV ONE (15:13)
[2020-02-12] MEDS ORDERED: GLYCOPYRROLATE 0.2 MG/ML 2 ML VIAL ONE (15:13)
[2020-02-12] MEDS ORDERED: LIDOCAINE 1% INJ 10MG/ML (20 ML MDV) ONE ×2 (15:13→15:14)
[2020-02-12] MEDS ORDERED: ONDANSETRON 4 MG/2 ML VIAL ONE (15:13)
[2020-02-12] MEDS ORDERED: SUCCINYLCHOLINE CHLORIDE 100 MG/5 ML SYR IV ONE (15:13)
[2020-02-12] MEDS ORDERED: PHENYLEPHRINE 10 MG/ML VIAL ONE (15:13)
[2020-02-12] MEDS ORDERED: ceFAZolin 1,000 MG VIAL ONE (15:13)
[2020-02-12] MEDS ORDERED: ROCURONIUM 10 MG/ML (10 ML VIAL) IV ONE (15:13)
[2020-02-12] MEDS ORDERED: DEXAMETHASONE SOD PHOS (MDV) 100 MG/10 ML VIAL ONE (15:13)
[2020-02-12] MEDS ORDERED: SODIUM CHLORIDE 0.9% 100 ML BAG ONE (15:13)
[2020-02-12] MEDS ORDERED: fentaNYL (PF) 50 MCG/ML 2 ML AMP ONE (15:13)
[2020-02-12] MEDS ORDERED: MIDAZOLAM 2 MG/2 ML VIAL ONE (15:13)
[2020-02-12] MEDS ORDERED: NEOSTIGMINE 1 MG/ML 10 ML VIAL ONE (15:13)
[2020-02-12] MEDS ORDERED: LIDOCAINE 1% INJ 10MG/ML (20 ML MDV) SQ ONE (16:18)
[2020-02-12] MEDS ORDERED: HEPARIN SOD,PORK IN 0.45% NACL 25,000 UNIT in 0.45% NACL 1 250ML.BAG IV ONE (16:20)
--- NOTE | 2020-02-12 17:30 | P.EPPROC ---
- EP Procedure Note Electrophysiology Procedure Note: Diagnosis Persistent symptomatic atrial fibrillation Aortic valve disease, bioprosthetic aortic valve in situ Admitted for management of atrial fibrillation Procedure Patient underwent general anesthesia. Esophagus was intubated. Circa telemetry monitoring catheter placed in the esophagus 1 venous sheaths in the right femoral vein, 2 venous sheaths in the left femoral vein Coronary sinus catheter placed in the coronary sinus for Paulo sinus pacing and recording. Patient in atrial fibrillation Intracardiac echo catheter placed in the heart. Long sheaths placed in the right atrium. Transseptal needle placed within the sheath in preparation for left atrial access RA pressures Intracardiac echocardiography was performed. Left atrial appendage examined Left atrial appendage full of thrombus like material. Almost the entire left atrial appendage is full of thrombus Patient is on ELIQUIS 5 mg twice daily Procedure aborted All sheaths removed Heparin discontinued Hemostasis achieved I discussed this with the patient's I discussed this with Dr. 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
[2020-02-12 19:42] LABS: Potassium 5.7 mmol/L (3.5-5.1)
[2020-02-12 19:43] LABS: Albumin 3.4 g/dL (3.5-5.0); Calcium 9.2 mg/dL (8.4-10.2); Total Bilirubin 0.5 mg/dL (0.2-1.3); Total Protein 8.8 g/dL (6.3-8.2)
[2020-02-12 20:11] LABS: INR 1.1 (<1.2); Prothrombin Time 11.4 sec (9.0-12.0)
[2020-02-12] MEDS ORDERED: METOPROLOL SUCCINATE (ER) 100 MG TAB.ER.24H PO SCH (21:00)
[2020-02-12] MEDS ORDERED: DABIGATRAN 75 MG CAP PO SCH (21:00)
[2020-02-12] MEDS: ASPIRIN 81 MG PO SCH (21:20)
[2020-02-12] MEDS: DABIGATRAN 150 MG CAP PO SCH (21:20)
[2020-02-12] MEDS: LEVOTHYROXINE 100 MCG TAB PO SCH (21:20)
[2020-02-13] MEDS ORDERED: FUROSEMIDE 40 MG TAB PO SCH (09:00)
[2020-02-13] MEDS ORDERED: LOSARTAN 25 MG TAB PO SCH (09:00)
[2020-02-13] MEDS ORDERED: POTASSIUM CHLORIDE ER 20 MEQ TAB.ER PO SCH (09:00)
[2020-02-13 09:34] LABS: Calcium 9.1 mg/dL (8.4-10.2); Magnesium 2.2 mg/dL (1.6-2.3)
[2020-02-13 09:36] LABS: Potassium 6.2 mmol/L (3.5-5.1)
[2020-02-13] MEDS ORDERED: SODIUM POLYSTYRENE SULFONATE 15 GM/60 ML BOTTLE PO STA (09:37)
[2020-02-13] MEDS: ASPIRIN 81 MG PO SCH (09:39)
[2020-02-13] MEDS: ATORVASTATIN 40 MG TAB PO SCH (09:40)
[2020-02-13] MEDS: DABIGATRAN 150 MG CAP PO SCH ×2 (09:40→20:57)
[2020-02-13] MEDS ORDERED: INSULIN REGULAR 100 UNIT/ML VIAL IV ONE ×3 (12:13→21:09)
[2020-02-13] MEDS ORDERED: DEXTROSE 50% SYRINGE 50 ML IVP STA ×3 (12:13→21:09)
[2020-02-13] MEDS ORDERED: SODIUM BICARB 8.4% 50 ML SYR (1 MEQ/ML) IV STA ×3 (12:13→21:09)
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
--- NOTE | 2020-02-13 12:55 | XR ---
EXAMINATION TYPE: XR chest 1V DATE OF EXAM: 02/13/2020 HISTORY: Shortness of breath. COMPARISON: 01/21/2020 TECHNIQUE: Single view of the chest is submitted. FINDINGS: Demonstrated are scattered senescent parenchymal change. There is no evidence for focal infiltrate. The heart is stable. Hilar and mediastinal structures are within normal limits. Degenerative changes are seen of the dorsal spine. IMPRESSION: 1. Chronic changes without evidence for acute pulmonary disease.
--- NOTE | 2020-02-13 13:24 | P.PN ---
Subjective Progress Note Date: 02/13/20 HISTORY OF PRESENT ILLNESS: Patient examined at the bedside this morning. Patient was scheduled for a cardiac ablation yesterday with Dr. Tidwell. Intracardiac echocardiography performed revealing left atrial appendage was full of thrombus like material. The procedure was then cancelled. He denies chest pain or pressure. He denies shortness of breath. Telemetry reveals afib with co ntrolled ventricular rate. Patient has had a few epsiodes where he heart rate dips into the 30s but comes right back up. He is asymptomatic during these times. Blood pressure 116/53. Potassium 6.2 today. Creatinine 4.20, up from 3.68. PHYSICAL EXAM: VITAL SIGNS: Reviewed. GENERAL: Well-developed in no acute distress. NECK: Supple. No JVD or thyromegaly LUNGS: Respirations even and unlabored. Lungs essentially clear to auscultation bilaterally. HEART: Irregular rate and rhythm. S1 and S2 heard. EXTREMITIES: Normal range of motion. No clubbing or cyanosis. Peripheral pulses intact. No lower extremity edema ASSESSMENT: Chronic persistent atrial fibrillation History of bioprosthetic aortic valve replacement Acute on chronic kidney disease Hyperkalemia Hyperlipidemia Hypertension Former nicotine dependence PLAN: Continue aspirin and pradaxa Will have case management check coverage for pradaxa Discontinue potassium supplement Give Kayexalate 1 dose Repeat potassium this afternoon Consult nephrology for further evaluation Nurse practitioner note has been reviewed by physician. Signing provider agrees with the documented findings, assessment, and plan of care. Objective - Vital Signs Vital signs: Vital Signs Temp 97.7 F 02/13/20 12:00 Pulse 77 02/13/20 12:00 Resp 17 02/13/20 12:00 BP 81/47 02/13/20 12:00 Pulse Ox 100 02/13/20 12:00 Intake & Output 02/12/20 02/13/20 02/13/20 18:59 06:59 18:59 Intake Total 726 225 480 Output Total 375 200 0 Balance 351 25 480 Weight 72.9 kg 73 kg Intake: IV 726 Oral 225 480 Output: Urine 375 200 0 Stool 0 Other: Voiding Method Indwelling Catheter # Voids 0 # Bowel Movements 0 - Labs CBC & Chem 7: 02/13/20 08:47 Labs: Abnormal Lab Results - Last 24 Hours (Table) 02/12/20 02/13/20 Range/Units 19:08 08:47 Potassium 5.7 H 6.2 H* (3.5-5.1) mmol/L Chloride 113 H 112 H (98-107) mmol/L Carbon Dioxide 16 L 14 L (22-30) mmol/L BUN 66 H 78 H (9-20) mg/dL Creatinine 3.68 H 4.20 H (0.66-1.25) mg/dL Glucose 190 H (74-99) mg/dL Total Protein 8.8 H (6.3-8.2) g/dL Albumin 3.4 L (3.5-5.0) g/dL
[2020-02-13] MEDS: DEXTROSE 5% IN WATER 1,000 ML with SODIUM BICARB (1 MEQ/ML) 150 ML IV SCH (13:40)
[2020-02-13 16:26] LABS: Calcium 8.9 mg/dL (8.4-10.2); Potassium 5.8 mmol/L (3.5-5.1)
[2020-02-13 20:23] LABS: Appearance,Urine Cloudy (Clear); Bacteria,Urine Rare /hpf; Bilirubin,Urine Negative (Negative); Blood,Urine Large (Negative); Color,Urine Yellow; Glucose,Urine (UA) Negative (Negative); Ketones,Urine Negative (Negative); Leukocyte Esterase,Urine Large (Negative); Nitrite,Urine Negative (Negative); Protein,Urine 1+ (Negative); RBC,Urine >182 /hpf (0-5); Specific Gravity,Urine 1.014 (1.001-1.035); Urobilinogen,Urine <2.0 mg/dL (<2.0); WBC,Urine 61 /hpf (0-5)
[2020-02-13] MEDS: LEVOTHYROXINE 100 MCG TAB PO SCH (20:57)
[2020-02-13] MEDS: METOPROLOL TARTRATE 50 MG TAB PO SCH (20:57)
[2020-02-13] MEDS: SODIUM BICARBONATE TAB 650 MG TAB PO SCH (20:57)
[2020-02-14] MEDS ORDERED: TAMSULOSIN 0.4 MG CAP.ER.24H PO STA (07:53)
[2020-02-14 08:36] LABS: Calcium 8.8 mg/dL (8.4-10.2); Potassium 5.4 mmol/L (3.5-5.1)
[2020-02-14] MEDS: SODIUM BICARBONATE TAB 650 MG TAB PO SCH ×2 (08:52→20:32)
[2020-02-14] MEDS: ASPIRIN 81 MG PO SCH (08:52)
[2020-02-14] MEDS: METOPROLOL TARTRATE 50 MG TAB PO SCH ×2 (08:52→20:32)
[2020-02-14] MEDS: ATORVASTATIN 40 MG TAB PO SCH (08:52)
[2020-02-14] MEDS: DABIGATRAN 150 MG CAP PO SCH ×2 (11:12→20:32)
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
--- NOTE | 2020-02-14 11:52 | P.PN ---
Subjective Progress Note Date: 02/14/20 HISTORY OF PRESENT ILLNESS: 02/13/2020 Patient examined at the bedside this morning. Patient was scheduled for a cardiac ablation yesterday with Dr. Tidwell. Intracardiac echocardiography performed revealing left atrial appendage was full of thrombus like material. The procedure was then cancelled. He denies chest pain or pressure. He denies shortness of breath. Telemetry reveals afib with controlled ventricular rate. Patient has had a few epsiodes where he heart rate dips into the 30s but comes right back up. He is asymptomatic during these times. Blood pressure 116/53. Potassium 6.2 today. Creatinine 4.20, up from 3.68. 02/14/2020 Patient examined this morning at the bedside. He denies chest pain or pressure. He denies shortness of breath. Patient's discharge was held yesterday secondary to hyperkalemia and worsening creatinine. Nephrology was consulted for further evaluation. The patient was placed on a bicarb drip. Potassium this morning 5.4. BUN 85. Creatinine 3.97. Patient was having urinary retention overnight. Nephrology was contacted and indwelling urinary catheter was inserted. PHYSICAL EXAM: VITAL SIGNS: Reviewed. GENERAL: Well-developed in no acute distress. NECK: Supple. No JVD or thyromegaly LUNGS: Respirations even and unlabored. Lungs essentially clear to auscultation bilaterally. HEART: Irregular rate and rhythm. S1 and S2 heard. EXTREMITIES: Normal range of motion. No clubbing or cyanosis. Peripheral pulses intact. No lower extremity edema ASSESSMENT: Chronic persistent atrial fibrillation History of bioprosthetic aortic valve replacement Acute on chronic kidney disease Hyperkalemia Hyperlipidemia Hypertension Former nicotine dependence Urinary retention PLAN: Continue aspirin and pradaxa Nephrology following. MRI of the kidneys ordered per nephrology. Lasix and Losartan remain on hold due to kidney function Begin Flomax for urinary retention Will consult Dr. Briscoe/Shavon for further medical management Discharge home when cleared by nephrology and internal medicine Nurse practitioner note has been reviewed by physician. Signing provider agrees with the documented findings, assessment, and plan of care. Objective - Vital Signs Vital signs: Vital Signs Temp 97.7 F 02/14/20 08:00 Pulse 109 H 02/14/20 08:00 Resp 17 02/14/20 08:00 BP 112/63 12/24/20 08:00 Pulse Ox 96 02/14/20 08:00 Intake & Output 02/13/20 02/14/20 02/14/20 18:59 06:59 18:59 Intake Total 1210 240 Output Total 0 1275 800 Balance 1210 -1275 -560 Weight 73.3 kg Intake: Intake, IV Titration 250 Amount Dextrose 5% in Water 1, 250 000 ml @ 50 mls/hr IV . Q23H NELLIE with Sodium Bicarb (1 Meq/ml) 150 ml Rx#:[id number] Oral 960 240 Output: Urine 0 1275 800 Stool 0 0 Other: Voiding Method Indwelling Catheter Indwelling Catheter Indwelling Catheter # Voids 0 # Bowel Movements 0 - Labs CBC & Chem 7: 02/14/20 07:56 Labs: Abnormal Lab Results - Last 24 Hours (Table) 02/13/20 02/13/20 02/13/20 Range/Units 12:14 12:14 15:37 Potassium 5.8 H (3.5-5.1) mmol/L Chloride 109 H (98-107) mmol/L Carbon Dioxide 18 L (22-30) mmol/L BUN 85 H (9-20) mg/dL Creatinine 4.41 H (0.66-1.25) mg/dL Glucose 114 H (74-99) mg/dL Urine Protein 1+ H (Negative) Urine Blood Large H (Negative) Ur Leukocyte Esterase Large H (Negative) Urine RBC >182 H (0-5) /hpf Urine WBC 61 H (0-5) /hpf Urine Bacteria Rare H (None) /hpf Ur Random Microalbumin 8.4 H (0.0-1.9) mg/dL Microalb/Creat Ratio 124 H (0-30) mg/g Creat 02/13/20 02/14/20 Range/Units 20:01 07:56 Potassium 5.3 H 5.4 H (3.5-5.1) mmol/L Chloride (98-107) mmol/L Carbon Dioxide 19 L (22-30) mmol/L BUN 85 H (9-20) mg/dL Creatinine 3.97 H (0.66-1.25) mg/dL Glucose 104 H (74-99) mg/dL Urine Protein (Negative) Urine Blood (Negative) Ur Leukocyte Esterase (Negative) Urine RBC (0-5) /hpf Urine WBC (0-5) /hpf Urine Bacteria (None) /hpf Ur Random Microalbumin (0.0-1.9) mg/dL Microalb/Creat Ratio (0-30) mg/g Creat
[2020-02-14] MEDS: DEXTROSE 5% IN WATER 1,000 ML with SODIUM BICARB (1 MEQ/ML) 150 ML IV SCH (13:18)
--- NOTE | 2020-02-14 14:13 | P.PN ---
Subjective Progress Note Date: 02/14/20 Principal diagnosis: Atrial fibrillation 02/12/2020 patient was scheduled for cardiac ablation and intracardiac echocardiography performed revealed left atrial appendage was full of thrombus- like material. The procedure was then canceled and taken to the floor. Last night for 2 on 02/13/2020 patient was having issues with heart rate going down into the 30s but these intermittent episodes were not been present today. He was experiencing urinary retention and elevated creatinine in which nephrology has been consult. A bicarb drip has been started and a Rodriguez was inserted in which we have very little urine at this time. Currently the patient is laying in bed with no complaints at this time. He denies chest pain pressure, nausea or vomiting, difficulty breathing or shortness of breath. He also states that he feels much better today than when he did yesterday. Objective - Vital Signs Vital signs: Vital Signs Temp 97.7 F 02/14/20 08:00 Pulse 109 H 02/14/20 08:00 Resp 17 02/14/20 08:00 BP 112/63 02/14/20 08:00 Pulse Ox 96 02/14/20 08:00 Intake & Output 02/13/20 02/14/20 02/14/20 18:59 06:59 18:59 Intake Total 1210 240 Output Total 0 1275 1200 Balance 1210 -1275 -960 Weight 73.3 kg Intake: Intake, IV Titration 250 Amount Dextrose 5% in Water 1, 250 000 ml @ 50 mls/hr IV . Q23H NELLIE with Sodium Bicarb (1 Meq/ml) 150 ml Rx#:[id number] Oral 960 240 Output: Urine 0 1275 1200 Stool 0 0 Other: Voiding Method Indwelling Catheter Indwelling Catheter Indwelling Catheter # Voids 0 # Bowel Movements 0 - Exam GENERAL: Well-appearing, well-nourished and in no acute distress. HEAD: Atraumatic, normocephalic. EYES: Pupils equal round and reactive to light, extraocular movements intact, sclera anicteric, conjunctiva are normal. ENT:nares patent, oropharynx clear without exudates. Moist mucous membranes. NECK: Normal range of motion, supple without lymphadenopathy or JVD, no thyromegaly LUNGS: Breath sounds clear to auscultation bilaterally and equal. No wheezes rales or rhonchi. HEART: Irregular rate and rhythm with S1-S2 heard ABDOMEN: Soft, nontender, normoactive bowel sounds. No guarding, no rebound. No masses appreciated. EXTREMITIES: Normal range of motion, no pitting or edema. No clubbing or cyanosis. NEUROLOGICAL: Cranial nerves II through XII grossly intact. Normal speech, normal gait. PSYCH: Normal mood, normal affect. SKIN: Warm, Dry, normal turgor, no rashes or lesions noted. Genitourinary: Indwelling catheter in place at this time with clear yellow urine. - Labs CBC & Chem 7: 02/14/20 07:56 Labs: Abnormal Lab Results - Last 24 Hours (Table) 02/13/20 02/13/20 02/13/20 Range/Units 12:14 12:14 15:37 Potassium 5.8 H (3.5-5.1) mmol/L Chloride 109 H (98-107) mmol/L Carbon Dioxide 18 L (22-30) mmol/L BUN 85 H (9-20) mg/dL Creatinine 4.41 H (0.66-1.25) mg/dL Glucose 114 H (74-99) mg/dL Urine Protein 1+ H (Negative) Urine Blood Large H (Negative) Ur Leukocyte Esterase Large H (Negative) Urine RBC >182 H (0-5) /hpf Urine WBC 61 H (0-5) /hpf Urine Bacteria Rare H (None) /hpf Ur Random Microalbumin 8.4 H (0.0-1.9) mg/dL Microalb/Creat Ratio 124 H (0-30) mg/g Creat 02/13/20 02/14/20 Range/Units 20:01 07:56 Potassium 5.3 H 5.4 H (3.5-5.1) mmol/L Chloride (98-107) mmol/L Carbon Dioxide 19 L (22-30) mmol/L BUN 85 H (9-20) mg/dL Creatinine 3.97 H (0.66-1.25) mg/dL Glucose 104 H (74-99) mg/dL Urine Protein (Negative) Urine Blood (Negative) Ur Leukocyte Esterase (Negative) Urine RBC (0-5) /hpf Urine WBC (0-5) /hpf Urine Bacteria (None) /hpf Ur Random Microalbumin (0.0-1.9) mg/dL Microalb/Creat Ratio (0-30) mg/g Creat Assessment and Plan (1) Hyperkalemia Current Visit: Yes Status: Acute Code(s): E87.5 - HYPERKALEMIA SNOMED Code(s): 07660132 (2) Acute renal failure superimposed on chronic kidney disease Current Visit: Yes Status: Acute Code(s): N17.9 - ACUTE KIDNEY FAILURE, UNSPECIFIED; N18.9 - CHRONIC KIDNEY DISEASE, UNSPECIFIED SNOMED Code(s): 848189767 (3) Atrial fibrillation Current Visit: Yes Status: Acute Code(s): I48.91 - UNSPECIFIED ATRIAL FIBRILLATION SNOMED Code(s): 92216303 (4) ARF (acute renal failure) Current Visit: No Status: Acute Code(s): N17.9 - ACUTE KIDNEY FAILURE, UNSPECIFIED SNOMED Code(s): 47810911 (5) Acquired hypothyroidism Current Visit: No Status: Acute Code(s): E03.9 - HYPOTHYROIDISM, UNSPECIFIED SNOMED Code(s): 636619766 (6) Atrial fibrillation with RVR Current Visit: No Status: Acute Code(s): I48.91 - UNSPECIFIED ATRIAL FIBRILLATION SNOMED Code(s): 311960485329640 (7) Bradycardia Current Visit: No Status: Acute Code(s): R00.1 - BRADYCARDIA, UNSPECIFIED SNOMED Code(s): 09694070 (8) Chronic atrial fibrillation Current Visit: No Status: Acute Code(s): I48.20 - CHRONIC ATRIAL FIBRILLATION, UNSPECIFIED SNOMED Code(s): 957147367 (9) Mixed hyperlipidemia Current Visit: No Status: Acute Code(s): E78.2 - MIXED HYPERLIPIDEMIA SNOMED Code(s): 355541116 Plan: 1. Continue on bicarb drip 2. Nephrology following, MRA to be completed on kidneys. 3. Flomax for urinary retention. 4. Continue to monitor labs and vitals and treat accordingly. 5. We will continue to follow closely and reevaluate again tomorrow. Time with Patient: Greater than 30
[2020-02-14] MEDS: LEVOTHYROXINE 100 MCG TAB PO SCH (20:32)
[2020-02-15 07:54] LABS: Anisocytosis Slight; Basophils % (A) 0 %; Eosinophils # (A) 0.1 k/uL (0-0.7); Eosinophils % (A) 1 %; HCT 25.3 % (39.0-53.0); Lymphocytes # (A) 3.4 k/uL (1.0-4.8); Lymphocytes % (A) 37 %; MCH 30.7 pg (25.0-35.0); MCV 95.8 fL (80.0-100.0); Macrocytosis Slight; Mean Platelet Volume 8.6; Monocytes # (A) 0.5 k/uL (0-1.0); Monocytes % (A) 5 %; Neutrophils # (A) 4.9 k/uL (1.3-7.7); Neutrophils % (A) 53 %; Platelet Count 279 k/uL (150-450); RBC 2.64 m/uL (4.30-5.90); RDW 16.7 % (11.5-15.5); WBC 9.2 k/uL (3.8-10.6)
[2020-02-15 07:57] LABS: HGB 8.1 gm/dL (13.0-17.5)
[2020-02-15] MEDS ORDERED: TAMSULOSIN 0.4 MG CAP.ER.24H PO SCH (08:30)
[2020-02-15 08:32] LABS: Calcium 8.7 mg/dL (8.4-10.2); Potassium 4.8 mmol/L (3.5-5.1)
[2020-02-15 08:56] VITALS: TEMP 98.1
[2020-02-15] MEDS: SODIUM BICARBONATE TAB 650 MG TAB PO SCH (08:56)
[2020-02-15] MEDS: METOPROLOL TARTRATE 50 MG TAB PO SCH (08:57)
[2020-02-15] MEDS: ATORVASTATIN 40 MG TAB PO SCH (08:57)
[2020-02-15] MEDS: DABIGATRAN 150 MG CAP PO SCH (08:57)
[2020-02-15] MEDS: ASPIRIN 81 MG PO SCH (08:58)
[2020-02-15] MEDS ORDERED: FUROSEMIDE 20 MG TAB PO SCH (10:00)
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
--- NOTE | 2020-02-15 11:52 | P.DS ---
Providers Expected date of discharge: 02/15/20 Attending physician: Manuel Tidwell Consults: 02/13/20 11:29 Consult Physician Routine Consulting Provider: Jose De Jesus Simmons Consult Reason/Comments: CKD Do you want consulting provider notified?: Yes 02/14/20 10:38 Consult Physician Routine Consulting Provider: Nick Briscoe Reason/Comments: medical management Do you want consulting provider notified?: Yes Primary care physician: Nick Briscoe Hospital Course: This is a 69-year-old male who was scheduled for elective cardiac ablation with Dr. Tidwell. Intracardiac echocardiography performed revealing left atrial appendage was full of thrombus like material. The procedure was then cancelled. The patient was previously taking Eliquis. He was switched to Pradaxa. Patient was noted to have increased creatinine and hyperkalemia during hospitalization. Nephrology was consulted. His Lasix and losartan were placed on hold. He was placed on a bicarb drip per nephrology. The patient also developed urinary retention during hospitalization. He was started on Flomax. Nephrology recommending MRI of the kidneys to rule out infarct. However due to the holiday this was unable to be completed today. The patient is very anxious to be discharged home in the decision was made to allow the patient to be discharged today and follow up on an outpatient basis as his kidney function has improved today. He is to follow up outpatient. Please see EMR for further hospital course details. Discharge Diagnosis: Chronic persistent atrial fibrillation History of bioprosthetic aortic valve replacement Acute on chronic kidney disease Hyperkalemia Hyperlipidemia Hypertension Former nicotine dependence Urinary retention Nurse practitioner note has been reviewed by physician. Signing provider agrees with the documented findings, assessment, and plan of care. Plan - Discharge Summary Discharge Rx Participant: No New Discharge Prescriptions: New Dabigatran Etexilate Mesylate [Pradaxa] 150 mg PO BID #90 cap Aspirin EC [Ecotrin Low Dose] 81 mg PO DAILY #90 tablet. Discontinued Apixaban [Eliquis] 5 mg PO BID No Action Atorvastatin [Lipitor] 40 mg PO DAILY Potassium Chloride [Klor-Con 20] 20 meq PO DAILY Levothyroxine Sodium 100 mcg PO HS Furosemide [Lasix] 40 mg PO DAILY Metoprolol Succinate [Toprol XL] 100 mg PO HS Losartan [Cozaar] 25 mg PO DAILY Discharge Medication List Atorvastatin [Lipitor] 40 mg PO DAILY 07/03/14 [History] Furosemide [Lasix] 40 mg PO DAILY 10/19/17 [History] Levothyroxine Sodium 100 mcg PO HS 10/19/17 [History] Potassium Chloride [Klor-Con 20] 20 meq PO DAILY 10/19/17 [History] Metoprolol Succinate [Toprol XL] 100 mg PO HS 01/18/20 [History] Losartan [Cozaar] 25 mg PO DAILY 01/19/20 [History] Aspirin EC [Ecotrin Low Dose] 81 mg PO DAILY #90 tablet. 02/12/20 [Rx] Dabigatran Etexilate Mesylate [Pradaxa] 150 mg PO BID #90 cap 02/12/20 [Rx] Follow up Appointment(s)/Referral(s): Tony Onofre MD [STAFF PHYSICIAN] - 1 Week Activity/Diet/Wound Care/Special Instructions: Post EP study - Ablation instructions 1. Keep access sites dry for 2 days. 2. No heavy lifting or straining for 2 days. 3. Avoid bending the hips repeatedly for 2 days. 4. You may go up and down stairs slowly Call if the following is noted 1. Bleeding, increasing swelling or pain at the access sites. 2. Increasing chest discomfort, especially upon taking a deep breath. 3. Increasing shortness of breath, at rest or with exertion. 4. Undue cough / phlegm 5. Difficulty or pain while swallowing. 6. Pain or change in color in the extremities. 7. Fever, chills, rigors. 8. Increasing headache or neurologic symptoms. 9. Dizziness, fainting, palpitations Stop ELIQUIS start Pradaxa 150 mg twice daily- pts copay is $0 Continue other medications Discharge Disposition: HOME SELF-CARE
[2020-02-15] MEDS: DEXTROSE 5% IN WATER 1,000 ML with SODIUM BICARB (1 MEQ/ML) 150 ML IV SCH (12:26)
[2020-02-15 12:28] VITALS: BP 89/52; PULSE 65; RESP 16
== END 2020-02-15 15:41 | disposition home or self-care (01) ==
LOC: CATHEP 13:04 → 3SCARD 17:05 → CATHEP 02-15 15:41
PROVIDERS: ATTEND Internal Medicine Clinical Cardiac Electrophysiology
DX: I48.19 Other persistent atrial fibrillation (principal); E03.9 Hypothyroidism, unspecified; E78.2 Mixed hyperlipidemia
CPT/HCPCS: 93662; 93620; 86160 ×2; 86162; 80053; 80048 ×2; 83735; 84132; 85025; 85610; 81001; 82043; 82570; 71045; C1769 ×6; C1894 ×4; C1730 ×2; C1759; C1893; C1733; C1766; J2250; J2370; J2710; J2405; J0690; J2001; J3010; J1100; J0330; J2704; J1644; 93619

== ENCOUNTER → 2020-03-28 | Outpatient (CLI) | payer BC, MEDICARE | END | disposition home or self-care (01) | LOC: LABWHC1 11:24 | PROVIDERS: ATTEND Internal Medicine Nephrology | DX: N18.30 Chronic kidney disease, stage 3 unspecified (principal) | CPT/HCPCS: 36415; 83516; 86160; 86162; 86255 ==

== ENCOUNTER 2020-04-21 12:31 | Inpatient (IN) | payer BC, MEDICARE ==
[2020-04-21] MEDS ORDERED: PANTOPRAZOLE 40 MG/10 ML VIAL IVP STA (12:46)
[2020-04-21 13:24] LABS: Basophils % (A) 0 %; Eosinophils % (A) 1 %; HCT 20.7 % (39.0-53.0); Hypochromasia Slight; Lymphocytes # (A) 3.6 k/uL (1.0-4.8); Lymphocytes % (A) 51 %; MCH 32.6 pg (25.0-35.0); MCHC 31.2 g/dL (31.0-37.0); MCV 104.3 fL (80.0-100.0); Macrocytosis Moderate; Mean Platelet Volume 7.7; Monocytes # (A) 0.4 k/uL (0-1.0); Monocytes % (A) 5 %; Neutrophils # (A) 2.9 k/uL (1.3-7.7); Neutrophils % (A) 41 %; Platelet Count 378 k/uL (150-450); RBC 1.98 m/uL (4.30-5.90); WBC 7.1 k/uL (3.8-10.6)
[2020-04-21 13:27] LABS: INR 1.8 (<1.2); Partial Thromboplastin Time 44.4 sec (22.0-30.0); Prothrombin Time 17.9 sec (9.0-12.0)
[2020-04-21 13:29] LABS: HGB 6.5 gm/dL (13.0-17.5)
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
[2020-04-21 13:50] LABS: Albumin 3.6 g/dL (3.5-5.0); Calcium 8.7 mg/dL (8.4-10.2); Potassium 4.2 mmol/L (3.5-5.1); Total Bilirubin 0.6 mg/dL (0.2-1.3); Total Protein 7.7 g/dL (6.3-8.2)
[2020-04-21] MEDS ORDERED: NALOXONE 0.4 MG/ML 1 ML VIAL IV PRN (14:10)
--- NOTE | 2020-04-21 14:12 | XR ---
EXAMINATION TYPE: XR chest 1V portable DATE OF EXAM: 04/21/2020 Comparison: 02/13/2020 Clinical History: 70-year-old male pain Findings: Median sternotomy wires. Heart mildly enlarged. Perihilar and interstitial opacities. No sizable effu cliff. Impression: Cardiomegaly with perihilar and interstitial opacities. Correlate for CHF with early interstitial pul monary edema versus atypical pneumonia.
[2020-04-21] MEDS: PANTOPRAZOLE 40 MG/10 ML VIAL IV SCH (14:15)
[2020-04-21] MEDS ORDERED: IOPAMIDOL CONTRAST (ORAL USE) VIAL PO PRN (17:18)
[2020-04-21] MEDS ORDERED: Potassium Replacement Protocol 1 EACH MISC MISCELLANE PRN (17:24)
[2020-04-21] MEDS ORDERED: Magnesium Replacement Protocol 1 EACH MISC MISCELLANE PRN (17:24)
[2020-04-21 18:27] LABS: HCT 20.4 % (39.0-53.0); HGB 6.7 gm/dL (13.0-17.5); Hypochromasia Slight; MCH 33.3 pg (25.0-35.0); MCHC 32.8 g/dL (31.0-37.0); MCV 101.6 fL (80.0-100.0); Macrocytosis Slight; Mean Platelet Volume 7.9; Platelet Count 311 k/uL (150-450); Poikilocytosis Slight; RBC 2.01 m/uL (4.30-5.90); RDW 15.8 % (11.5-15.5); WBC 5.9 k/uL (3.8-10.6)
[2020-04-21] MEDS: SODIUM CHLORIDE 0.9% 1,000 ML IV SCH (18:57)
[2020-04-22] MEDS: SODIUM CHLORIDE 0.9% 1,000 ML IV SCH ×2 (05:26→12:40)
[2020-04-22 07:48] LABS: Anisocytosis Slight; Basophils % (A) 1 %; Eosinophils # (A) 0.1 k/uL (0-0.7); Eosinophils % (A) 2 %; HCT 23.4 % (39.0-53.0); HGB 7.4 gm/dL (13.0-17.5); Hypochromasia Slight; Lymphocytes # (A) 2.9 k/uL (1.0-4.8); Lymphocytes % (A) 46 %; MCH 31.5 pg (25.0-35.0); MCHC 31.5 g/dL (31.0-37.0); Macrocytosis Slight; Monocytes # (A) 0.3 k/uL (0-1.0); Monocytes % (A) 6 %; Neutrophils # (A) 2.7 k/uL (1.3-7.7); Neutrophils % (A) 44 %; Platelet Count 337 k/uL (150-450); Poikilocytosis Slight; RBC 2.34 m/uL (4.30-5.90); RDW 16.9 % (11.5-15.5); WBC 6.3 k/uL (3.8-10.6)
[2020-04-22 08:04] LABS: Albumin 2.9 g/dL (3.5-5.0); Calcium 8.5 mg/dL (8.4-10.2); Magnesium 2.2 mg/dL (1.6-2.3); Potassium 4.1 mmol/L (3.5-5.1); Total Bilirubin 0.7 mg/dL (0.2-1.3); Total Protein 6.5 g/dL (6.3-8.2)
[2020-04-22] MEDS: PANTOPRAZOLE 40 MG/10 ML VIAL IV SCH (09:21)
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
[2020-04-22] MEDS: METOPROLOL SUCCINATE (ER) 50 MG TAB.ER.24H PO SCH (12:38)
[2020-04-22] MEDS: TAMSULOSIN 0.4 MG CAP.ER.24H PO SCH (12:38)
[2020-04-22 12:39] LABS: Anisocytosis Slight; HCT 22.7 % (39.0-53.0); HGB 7.6 gm/dL (13.0-17.5); Hypochromasia Slight; MCH 33.2 pg (25.0-35.0); MCHC 33.3 g/dL (31.0-37.0); MCV 99.8 fL (80.0-100.0); Macrocytosis Slight; Mean Platelet Volume 7.4; Platelet Count 314 k/uL (150-450); Poikilocytosis Slight; RBC 2.28 m/uL (4.30-5.90); RDW 16.3 % (11.5-15.5); WBC 6.8 k/uL (3.8-10.6)
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
[2020-04-22] MEDS ORDERED: PEG 3350-NA SULF,BICARB,CL/KCL 4,000 ML BOTTLE PO ONE (17:00)
--- NOTE | 2020-04-22 17:36 | CONS ---
CONSULTATION DATE OF DICTATION: 04/22/2020 REASON FOR CONSULTATION: Severe anemia. HISTORY OF PRESENT ILLNESS: The patient is a 70-year-old pleasant white male with a history of coronary artery disease, atrial fibrillation, on Pradaxa, history of cardiomyopathy and coronary artery disease, admitted to the hospital with severe symptomatic anemia and hemoglobin of 6.5 g/dL. The patient presented with dark-colored stools on and off for the last 3-4 days' duration and he was extremely tired, fatigued, with some increasing shortness of breath. He received 2 units of PRBC transfusion in the ER and repeat hemoglobin was 7.4 g/dL. We are hence consulted for evaluation of anemia. The patient was scheduled for an EGD and colonoscopy by Dr. Rose on an outpatient basis, but GI Services was requested to perform the procedures. The patient denies any prior history of EGD or colonoscopy in the past. No prior history of peptic ulcer disease. No recent NSAID use. PAST MEDICAL HISTORY: Significant for atrial fibrillation, on Pradaxa, currently on hold since yesterday. History of coronary artery disease, hypertension, hyperlipidemia. PAST SURGICAL HISTORY: CABG, cardiac catheterization, cardiac valve replacement, history of splenectomy, multiple left leg surgeries. MEDICATIONS: Medications at home include Lipitor, levothyroxine, Ecotrin, Pradaxa, Lasix, Toprol and Flomax. ALLERGIES: NONE. SOCIAL HISTORY: Former smoker. No alcohol use. FAMILY HISTORY: Mother unremarkable. REVIEW OF SYSTEMS: CARDIOPULMONARY: No chest pain or shortness of breath. GENITOURINARY: No dysuria or hematuria. MUSCULOSKELETAL: Unremarkable. SKIN: Unremarkable. ENDOCRINE: Unremarkable. PSYCHIATRIC: Unremarkable. NEUROLOGY: Unremarkable. ENT/VISION: Unremarkable. CONSTITUTIONAL: No recent weight loss. No fever, chills, night sweats. PHYSICAL EXAMINATION: He appears comfortable. No apparent distress. Vital signs are stable. Blood pressure is 110/69, temperature 96, pulse rate 95. HEENT examination unremarkable. Conjunctivae pale. Sclerae anicteric. Oral cavity no lesions. NECK: No JVD or lymph node enlargement. CHEST: Clear to auscultation. HEART: Regular rate and rhythm. ABDOMEN: Soft. Bowel sounds are positive. No organomegaly. EXTREMITIES: No pedal edema. NEUROLOGIC: Alert and oriented x3. No focal deficits. LABS: WBC 7.1, hemoglobin 6.5, MCV is 104, platelets normal. PT/INR 1.8. AST, ALT, T- bilirubin and alkaline phosphatase are normal. BUN 41, creatinine 2.28. IMPRESSION: 1. Severe symptomatic anemia with a hemoglobin of 6.5 g/dL and black tarry stools for the last 3-4 days' duration. Most likely we are dealing with an upper GI source of bleeding but cannot rule out colonic source. The patient has no prior history of EGD or colonoscopy in the past. 2. Atrial fibrillation/flutter, on Pradaxa, currently on hold. 3. History of hypertension. 4. Coronary artery disease, status post coronary artery bypass grafting many years ago. 5. History of hypertension and hyperlipidemia. 6. History of chronic kidney disease. RECOMMENDATIONS: 1. Continue to hold Pradaxa. 2. Monitor CBC daily and transfuse if hemoglobin less than 7. 3. Repeat PT/INR in the morning. 4. Will proceed with EGD and colonoscopy tomorrow. Discussed with the patient risks, benefits and complications of the procedures, and he is agreeable to it. Thank you for this consultation. MMODL / IJN: [id number] /
[2020-04-22] MEDS: LEVOTHYROXINE 100 MCG TAB PO SCH (20:18)
[2020-04-23 07:44] LABS: Anisocytosis Slight; Basophils % (A) 0 %; Eosinophils # (A) 0.1 k/uL (0-0.7); Eosinophils % (A) 1 %; HCT 22.1 % (39.0-53.0); HGB 7.3 gm/dL (13.0-17.5); Hypochromasia Slight; Lymphocytes # (A) 2.6 k/uL (1.0-4.8); Lymphocytes % (A) 36 %; MCH 33.2 pg (25.0-35.0); MCHC 33.1 g/dL (31.0-37.0); MCV 100.3 fL (80.0-100.0); Macrocytosis Slight; Mean Platelet Volume 7.8; Monocytes # (A) 0.4 k/uL (0-1.0); Monocytes % (A) 5 %; Neutrophils # (A) 4.2 k/uL (1.3-7.7); Neutrophils % (A) 56 %; Platelet Count 302 k/uL (150-450); Poikilocytosis Slight; RDW 16.1 % (11.5-15.5); WBC 7.4 k/uL (3.8-10.6)
[2020-04-23 07:58] LABS: INR 1.2 (<1.2); Prothrombin Time 12.7 sec (9.0-12.0)
[2020-04-23 08:01] LABS: Potassium 3.7 mmol/L (3.5-5.1)
[2020-04-23] MEDS: SODIUM CHLORIDE 0.9% 1,000 ML IV SCH ×2 (09:12→21:10)
[2020-04-23] MEDS: ASPIRIN 81 MG PO SCH (09:12)
[2020-04-23] MEDS: METOPROLOL SUCCINATE (ER) 50 MG TAB.ER.24H PO SCH (09:12)
[2020-04-23] MEDS: TAMSULOSIN 0.4 MG CAP.ER.24H PO SCH (09:12)
[2020-04-23] MEDS: PANTOPRAZOLE 40 MG/10 ML VIAL IV SCH (09:15)
[2020-04-23] MEDS ORDERED: IV FLUID CONTINUATION 1,000 ML IV ONE (12:30)
[2020-04-23] MEDS ORDERED: PROPOFOL 10 MG/ML 20 ML VIAL IV ONE (12:37)
[2020-04-23] MEDS ORDERED: LIDOCAINE 1% INJ 10MG/ML (20 ML MDV) ONE (12:37)
--- NOTE | 2020-04-23 13:11 | P.PCN ---
Date of Procedure: 04/23/20 Procedure(s) Performed: Brief history: Patient is a pleasan 68-year-old white male admitted hospital with acute GI bleed. Had multiple episodes of black tarry stools and a hemoglobin of 6.5 g/dL requiring 2 units of PRBC transition. He is scheduled for an upper endoscopy as well as colonoscopy as a part of evaluation of acute GI bleed. Procedure performed: Esophagogastroduodenoscopy Colonoscopy with argon plasma coagulation Preoperative diagnosis: Acute GI bleed/severe anemia Anesthesia: MAC Procedure: After informed consent was obtained from the patient was brought into the endoscopy unit and IV sedation was administered by anesthesia under continuous monitoring. Initially upper endoscopy was done. The Olympus GF 160 video endoscope was inserted inserted into the mouth and esophagus intubated without any difficulty and was gradually advanced into the stomach and duodenum and carefully examined. The bulb and second part of the duodenum appeared normal. The scope was then withdrawn into the stomach adequately insufflated with air and upon careful examination the antrum had mild gastritis in the prepyloric area with no active bleeding. body, cardia and fundus appeared normal. The scope was then withdrawn into the esophagus. The GE junction was located at 40 cm to the incisors. It appeared regular with no erythema erosions or ulcerations. Rest of the esophagus appeared normal. Patient tolerated the procedure well. At this time the patient continued to remain sedation. Initial digital rectal examination was normal. Olympus CF 160 video colonoscope was then inserted into the rectum and gradually advanced to the cecum without any difficulty. Careful examination was performed as the scope was gradually being withdrawn. The prep was fair. There was fresh blood noted throughout the entire colon. The base of the cecum there was an actively bleeding small arteriovenous malformation which was coagulated using argon plasma with good hemostasis. The rest of the cecum, ascending colon, transverse colon, descending colon, sigmoid colon and rectum appeared normal. Retroflexion was performed in the rectum and no lesions were noted. Patient tolerated the procedure well. Impression: 1. Upper endoscopy revealed mild antral gastritis but no evidence of active upper GI bleed. No evidence ofof peptic ulcer disease. 2. Colonoscopy revealed active bleeding angiectasia in the base of the cecum status post argon plasma coag ablation with good hemostasis. Rest of the colon appeared normal Recommendations: Findings of this examination were discussed with the patient. Monitor CBC daily. Advance diet as tolerated.
--- NOTE | 2020-04-23 14:16 | P.PN ---
Subjective Progress Note Date: 04/23/20 This is a 70 y/o male with past medical history of Afib-on Pradaxa, Left atrial appendage thrombus on January 2020, anticoagulation changed to Pradaxa,alcohol abuse, cardiomyopathy, CAD, Hypothyroiodism, , hypertension,and Hyperlipidemia and multiple other medical issues ,who initially presented to PCPs office, labs drawn abnormal and directed to proceed to the ER. Patient presented to the ER with with complaints of dark tarry stools over the last four to five days accompanied by fatigue and exertional shortness of breath. His hemoglobin on admission was 6.5, received 2 units of packed RBCs , Pradaxa placed on hold with current hemoglobin 7.4. No further black stools. Patient reports he has had no alcohol consumption 1 year.Denies chest pain, palpitations. EKG reported atrial fibrillation, controlled ventricular rate with left bundle branch block, troponin 0.067, 0.064. INR 1.8, BUN 41, 2.28- currently 37, 2.15. 04/23/2020 evaluated by a GI and patient is scheduled for both EGD and colonoscopy today. Hemoglobin 7.3, INR 1.2, creatinine improving down to 1.76. Vital signs stable. Objective - Vital Signs Vital signs: Vital Signs Temp 97.4 F L 04/22/20 20:00 Pulse 101 H 04/23/20 04:00 Resp 16 04/23/20 04:00 BP 137/78 04/23/20 04:00 Pulse Ox 97 04/23/20 04:00 Intake & Output 04/22/20 04/23/20 04/23/20 18:59 06:59 18:59 Intake Total 1122 Output Total 600 925 Balance 522 -925 Weight 78 kg Intake: Intake, IV Titration 650 Amount Sodium Chloride 0.9% 1, 650 000 ml @ 80 mls/hr IV . [id number] [facility] Rx#:[id number] Oral 472 Output: Urine 600 925 Other: Voiding Method Urinal Urinal # Voids 1 # Bowel Movements 2 - Exam - Exam General: Sitting up in bed , alert and oriented x 3, NAD. Neck: supple, no JVD. Cardiovascular: S1S2 is normal, There is a regular rate and rhythm. No rub or gallop is appreciated. Positive systolic murmur. Respiratory: Lungs are coarse, fine bibasilar crackles, left greater than right. Gastrointestinal: Soft, non-distended, non-tender abdomen without masses or organomegaly noted. No guarding present. Positive Bowel sounds. Musculoskeletal: Normal ROM, no tenderness,no pedal edema. no calf tenderness or swelling. Neurological: CN II-XII intact, no focal deficits. Strength and sensation grossly intact. Skin: Skin is warm and dry, no rashes are noted. - Labs CBC & Chem 7: 04/23/20 06:54 04/23/20 06:54 Labs: Abnormal Lab Results - Last 24 Hours (Table) 04/22/20 04/22/20 04/23/20 Range/Units 06:57 12:21 06:54 RBC 2.28 L (4.30-5.90) m/uL Hgb 7.6 L (13.0-17.5) gm/dL Hct 22.7 L (39.0-53.0) % MCV (80.0-100.0) fL RDW 16.3 H (11.5-15.5) % PT 12.7 H (9.0-12.0) sec INR 1.2 H (<1.2) Sodium (137-145) mmol/L Chloride (98-107) mmol/L Carbon Dioxide (22-30) mmol/L BUN (9-20) mg/dL Creatinine (0.66-1.25) mg/dL Calcium (8.4-10.2) mg/dL Troponin I 0.064 H* (0.000-0.034) ng/mL 04/23/20 04/23/20 Range/Units 06:54 06:54 RBC 2.20 L (4.30-5.90) m/uL Hgb 7.3 L (13.0-17.5) gm/dL Hct 22.1 L (39.0-53.0) % MCV 100.3 H (80.0-100.0) fL RDW 16.1 H (11.5-15.5) % PT (9.0-12.0) sec INR (<1.2) Sodium 136 L (137-145) mmol/L Chloride 109 H (98-107) mmol/L Carbon Dioxide 17 L (22-30) mmol/L BUN 28 H (9-20) mg/dL Creatinine 1.76 H (0.66-1.25) mg/dL Calcium 8.0 L (8.4-10.2) mg/dL Troponin I (0.000-0.034) ng/mL Assessment and Plan Assessment: Acute blood loss anemia secondary to acute GI bleed, suspect upper, status post transfusion of 2 units packed RBCs Mild elevation in troponins , suspect troponin leak secondary to CKD,anemia. Chronic kidney disease, stage III secondary to nephrosclerosis, baseline 1.4-1.6 Chronic systolic CHF, EF 45-50% Suspect alcoholic cardiomyopathy Moderate mitral regurgitation Moderate Aortic stenosis with aortic valve replacement Chronic persistent A. fib, anticoagulated on anticoagulation, currently on hold. History of Left atrial appendage thrombus on January 2020, anticoagulation changed to Pradaxa. CAD with history of CABG, stents Hypertension Hyperlipidemia Hypothyroidism Former nicotine dependence History of splenectomy BPH History of major depressive disorder, mild Plan: Continue on current medication regime ,monitoring and symptomatic treatment. EGD and colonoscopy scheduled for this afternoon. Maintained on gentle IV fluid hydration, PPI with anticoagulation on hold . Close monitoring of hemoglobin, platelets. The impression and plan of care has been dictated as directed. : I performed a history and examination of this patient, discussed the same with the dictator. I agree with the dictator's note ,documented as a scribe. Any additional findings or plans will be noted.
--- NOTE | 2020-04-23 16:07 | P.PN ---
Progress Note - Text Progress Note Date: 04/23/20 Stopped by patients room to see him and he was at his procedure with GI. Will follow up results
[2020-04-23] MEDS: LEVOTHYROXINE 100 MCG TAB PO SCH (21:11)
[2020-04-23 23:29] VITALS: RESP 16
[2020-04-24] MEDS: ASPIRIN 81 MG PO SCH (08:21)
[2020-04-24] MEDS: METOPROLOL SUCCINATE (ER) 50 MG TAB.ER.24H PO SCH (08:21)
[2020-04-24] MEDS: PANTOPRAZOLE 40 MG/10 ML VIAL IV SCH (08:21)
[2020-04-24] MEDS: TAMSULOSIN 0.4 MG CAP.ER.24H PO SCH (08:21)
[2020-04-24] MEDS: SODIUM CHLORIDE 0.9% 1,000 ML IV SCH (08:24)
[2020-04-24 08:31] LABS: Anisocytosis Slight; HCT 24.3 % (39.0-53.0); HGB 7.8 gm/dL (13.0-17.5); Hypochromasia Slight; MCH 32.6 pg (25.0-35.0); MCHC 32.3 g/dL (31.0-37.0); MCV 100.9 fL (80.0-100.0); Macrocytosis Slight; Mean Platelet Volume 7.9; Platelet Count 316 k/uL (150-450); Poikilocytosis Slight; RBC 2.41 m/uL (4.30-5.90); RDW 16.1 % (11.5-15.5); WBC 10.4 k/uL (3.8-10.6)
[2020-04-24 08:52] LABS: Calcium 8.3 mg/dL (8.4-10.2); Potassium 4.4 mmol/L (3.5-5.1)
--- NOTE | 2020-04-24 11:12 | P.DS ---
Providers Date of admission: 04/21/20 14:10 Expected date of discharge: 04/24/20 Attending physician: Nick Briscoe Consults: 04/21/20 14:10 Consult Physician Urgent Consulting Provider: Tawanda Rose Consult Reason/Comments: gi hemorrhage Do you want consulting provider notified?: Yes Consult Physician Urgent Consulting Provider: Tony Onofre Consult Reason/Comments: A. fib with GI hemorrhage Do you want consulting provider notified?: Yes 04/22/20 09:50 Consult Physician Routine Consulting Provider: Stephanie Onofre Consult Reason/Comments: GI bleed Do you want consulting provider notified?: Yes Primary care physician: [facility] Course: Final diagnoses Acute blood loss anemia secondary to active bleeding angiectasia in the base of the cecum status post argon plasma coag ablation, status post transfusion of 2 units packed RBCs. EGD reported mild antral gastritis. Mild elevation in troponins , suspect troponin leak secondary to CKD,anemia. Chronic kidney disease, stage III secondary to nephrosclerosis, baseline 1.4-1.6 Chronic systolic CHF, EF 45-50% Suspect alcoholic cardiomyopathy Moderate mitral regurgitation Moderate Aortic stenosis with aortic valve replacement Chronic persistent A. fib, anticoagulated on anticoagulation, currently on hold. History of Left atrial appendage thrombus on January 2020, anticoagulation changed to Pradaxa. CAD with history of CABG, stents Hypertension Hyperlipidemia Hypothyroidism Former nicotine dependence History of splenectomy BPH History of major depressive disorder, mild Hospital course:This is a 70 y/o male with past medical history of Afib-on Pradaxa, Left atrial appendage thrombus on January 2020, anticoagulation changed to Pradaxa,alcohol abuse, cardiomyopathy, CAD, Hypothyroiodism, , hypertension,and Hyperlipidemia and multiple other medical issues ,who initially presented to PCPs office, labs drawn abnormal and directed to proceed to the ER. Patient presented to the ER with with complaints of dark tarry stools over the last four to five days accompanied by fatigue and exertional shortness of breath. His hemoglobin on admission was 6.5, received 2 units of packed RBCs , Pradaxa placed on hold with current hemoglobin 7.4. No further black stools. Patient reports he has had no alcohol consumption 1 year.Denies chest pain, palpitations. EKG reported atrial fibrillation, controlled ventricular rate with left bundle branch block, troponin 0.067, 0.064. INR 1.8, BUN 41, 2.28-currently 37, 2.15. 04/23/2020 evaluated by a GI and patient is scheduled for both EGD and colonoscopy today. Hemoglobin 7.3, INR 1.2, creatinine improving down to 1.76. Vital signs stable. Completed EGD and colonoscopy, tolerated procedure well. Upper endoscopy revealed mild antral gastritis but no evidence of active upper GI bleed. No evidence ofof peptic ulcer disease. Colonoscopy revealed active bleeding angiectasia in the base of the cecum status post argon plasma coag ablation with good hemostasis. Rest of the colon appeared normal. Tolerating regular diet with no nausea vomiting or diarrhea. Denies any chest pain, palpitations or shortness of breath. Denies abdominal pain. Patient has been cleared by the GI for discharge recommending Pradaxa continue to be held and be resumed in 48 hours, with repeat CBC in a.m. patient will be discharged home in a stable condition with guarded prognosis. The impression and plan of care has been dictated as directed. : I performed a history and examination of this patient, discussed the same with the dictator. I agree with the dictator's note ,documented as a scribe. Any additional findings or plans will be noted. Patient Condition at Discharge: Stable Plan - Discharge Summary New Discharge Prescriptions: New Pantoprazole Sodium [Protonix] 40 mg PO DAILY #30 tablet. Continue Atorvastatin [Lipitor] 40 mg PO DAILY Levothyroxine Sodium 100 mcg PO HS Aspirin EC [Ecotrin Low Dose] 81 mg PO DAILY #90 tablet. Tamsulosin [Flomax] 0.4 mg PO -BRKFST #30 cap.er.24h Furosemide [Lasix] 20 mg PO DAILY #30 tab Metoprolol Succinate (ER) [Toprol XL] 50 mg PO DAILY #30 tab Dabigatran Etexilate Mesylate [Pradaxa] 150 mg PO BID #90 cap Discharge Medication List Atorvastatin [Lipitor] 40 mg PO DAILY 07/03/14 [History] Levothyroxine Sodium 100 mcg PO HS 10/19/17 [History] Aspirin EC [Ecotrin Low Dose] 81 mg PO DAILY #90 tablet. 02/12/20 [Rx] Furosemide [Lasix] 20 mg PO DAILY #30 tab 02/15/20 [Rx] Metoprolol Succinate (ER) [Toprol XL] 50 mg PO DAILY #30 tab 02/15/20 [Rx] Tamsulosin [Flomax] 0.4 mg PO PC-BRKFST #30 cap.er.24h 02/15/20 [Rx] Dabigatran Etexilate Mesylate [Pradaxa] 150 mg PO BID #90 cap 04/24/20 [Rx] Pantoprazole Sodium [Protonix] 40 mg PO DAILY #30 tablet. 04/24/20 [Rx] Follow up Appointment(s)/Referral(s): Dustin Sands Jr, DO [Primary Care Provider] - 3 Days Stephanie Onofre MD [STAFF PHYSICIAN] - 2 Weeks Ambulatory/Diagnostic Orders: Complete Blood Count w/diff [LAB.AMB] Time Frame: 04/25/20, Location: None Selected Patient Instructions/Handouts: Gastrointestinal Bleeding (DC)
--- NOTE | 2020-04-24 11:46 | P.PN ---
Subjective HISTORY OF PRESENTING ILLNESS This is a pleasant 70-year-old male past medical history significant for coronary artery disease status post PCI to the ostial LAD 2013, history of aortic valve and root repair 2013, chronic persistent atrial fibrillation on long-term anticoagulation, left atrial appendage thrombus noted in January 2020 prior to A. fib ablation which was aborted at that time and his anticoagulation was changed to pradaxa hypertension, dyslipidemia and former nicotine dependence. He follows in the office with Dr. Onofre. He presented to the hospital with a 4 day history of black stools. He denies symptoms of chest p ain, shortness of breath, dizziness or palpitations. He complains of feeling overall fatigued. On arrival his hemoglobin was 6.5 he received 2 units of packed red blood cells and repeat hemoglobin today 7.4. He has had no further episodes of black stool since arriving at the hospital. 04/24/2020 Patient seen and examined resting comfortably sitting up in bed in no acute distress. He underwent EGD colonoscopy yesterday revealing actively bleeding angiectasia at the base of the cecum and he underwent plasma coagulation at that time. Blood pressure 131/77 heart rate 77 afebrile maintaining oxygen saturation on room air. Laboratory data reviewed, WBC 10.4, hemoglobin 7.8, platelets 316, sodium 137, potassium 4.4 and creatinine 1.84. He denies any further episodes of bleeding. He denies chest pain, shortness of breath, dizziness or palpitations. PHYSICAL EXAMINATION CONSTITUTIONAL: No apparent distress. HEENT: Head is normocephalic. Pupils are equal, round. Sclerae anicteric. Mucous membranes of the mouth are moist. No JVD. No carotid bruit. CHEST EXAMINATION: Lungs are clear to auscultation. No chest wall tenderness is noted on palpation or with deep breathing. HEART EXAMINATION: Irregular rate and rhythm. S1, S2 heard. Systolic ejection murmur at the base, no gallops or rub. EXTREMITIES: 2+ peripheral pulses, no lower extremity edema, left lower extremity discoloration and no calf tenderness. ASSESSMENT Acute GI bleeding Anemia secondary to GI bleeding Troponin leak secondary to anemia and CKD Chronic persistent atrial fibrillation on long-term anticoagulation Left atrial appendage thrombus Coronary artery disease status post PCI to the LAD Valvular heart disease status post aortic valve replacement 2013 Aortic stenosis Mitral stenosis and regurgitation Hypertension Dyslipidemia Chronic kidney disease PLAN Currently maintained on aspirin 81 mg daily. Await GI recommendation regarding resuming Pradaxa. If okay with GI we would recommend resuming Pradaxa and holding aspirin moving forward. However if they prefer to hold Pradaxa we will maintain aspirin in the meantime. Follow-up with Dr. Onofre upon discharge. Nurse Practitioner note has been reviewed, I agree with a documented findings and plan of care. Patient was seen and examined. Objective - Vital Signs Vital signs: Vital Signs Temp 98.1 F 04/24/20 08:15 Pulse 77 04/24/20 08:15 Resp 16 04/24/20 08:15 BP 131/77 04/24/20 08:15 Pulse Ox 97 04/24/20 08:15 Intake & Output 04/23/20 04/24/20 04/24/20 18:59 06:59 18:59 Intake Total 525 Output Total 300 775 Balance 225 -775 Weight 67.1 kg Intake: IV 400 Oral 125 Output: Urine 300 775 - Labs CBC & Chem 7: 04/24/20 08:04 04/24/20 08:04 Labs: Abnormal Lab Results - Last 24 Hours (Table) 04/24/20 04/24/20 Range/Units 08:04 08:04 RBC 2.41 L (4.30-5.90) m/uL Hgb 7.8 L (13.0-17.5) gm/dL Hct 24.3 L (39.0-53.0) % MCV 100.9 H (80.0-100.0) fL RDW 16.1 H (11.5-15.5) % Chloride 111 H (98-107) mmol/L Carbon Dioxide 18 L (22-30) mmol/L BUN 28 H (9-20) mg/dL Creatinine 1.84 H (0.66-1.25) mg/dL Glucose 112 H (74-99) mg/dL Calcium 8.3 L (8.4-10.2) mg/dL
[2020-04-24 13:07] VITALS: BP 123/64; PULSE 79; TEMP 98
--- NOTE | 2020-04-24 15:57 | P.PN ---
Subjective Progress Note Date: 04/24/20 Principal diagnosis: Anemia, GI bleed This is a pleasant 70-year-old male presented to the emergency department with complaints of multiple black tarry stools. He was noted to have a hemoglobin of 6.5 on admission. He is status post 2 units of PRBC. He underwent an EGD and colonoscopy yesterday. EGD showed mild antral gastritis but no evidence of active upper GI bleed. No evidence of peptic ulcer disease. Colonoscopy revealed active bleeding angiectasia in the base of the cecum status post argon plasma coagulation with good hemostasis. Rest of the colon appeared normal. The patient denies any abdominal pain, nausea, or vomiting. He has had no further dark tarry stools. Plan is for discharge home today. Hemoglobin stable at 7.8. Objective - Vital Signs Vital signs: Vital Signs Temp 98.1 F 04/24/20 08:15 Pulse 77 04/24/20 08:15 Resp 16 04/24/20 08:15 BP 131/77 04/24/20 08:15 Pulse Ox 97 04/24/20 08:15 Intake & Output 04/23/20 04/24/20 04/24/20 18:59 06:59 18:59 Intake Total 525 Output Total 300 775 Balance 225 -775 Weight 67.1 kg Intake: IV 400 Oral 125 Output: Urine 300 775 - Exam General appearance: The patient is alert, oriented, appears in no acute distress. HET: Head is normocephalic and atraumatic. Conjunctiva pink. Sclera anicteric. Neck: Supple without lymphadenopathy. Abdomen: Soft, nontender, nondistended with bowel sounds. No guarding or rigidity. Extremities: Normal skin color and turgor. No pedal edema Skin: No rashes, no jaundice Neurological: No focal deficits. Alert and oriented 3. - Labs CBC & Chem 7: 04/24/20 08:04 04/24/20 08:04 Labs: Abnormal Lab Results - Last 24 Hours (Table) 04/24/20 04/24/20 Range/Units 08:04 08:04 RBC 2.41 L (4.30-5.90) m/uL Hgb 7.8 L (13.0-17.5) gm/dL Hct 24.3 L (39.0-53.0) % MCV 100.9 H (80.0-100.0) fL RDW 16.1 H (11.5-15.5) % Chloride 111 H (98-107) mmol/L Carbon Dioxide 18 L (22-30) mmol/L BUN 28 H (9-20) mg/dL Creatinine 1.84 H (0.66-1.25) mg/dL Glucose 112 H (74-99) mg/dL Calcium 8.3 L (8.4-10.2) mg/dL Assessment and Plan (1) Symptomatic anemia Narrative/Plan: A 70-year-old gentleman who presented to the hospital with a hemoglobin of 6.5 and black tarry stools for the last 3-4 days duration. Most likely dealing with an upper GI source of bleeding but cannot rule out colonic source. The patient has no prior history of EGD or colonoscopy in the past. Next The patient underwent EGD and colonoscopy yesterday. Upper endoscopy revealed mild antral gastritis but no evidence of active upper GI bleed. No evidence of peptic ulcer disease. Colonoscopy revealed active bleeding angiectasia in the base of the cecum status post argon plasma coagulation ablation with good hemostasis. the rest of colon Appeared normal. Current Visit: Yes Status: Acute Code(s): D64.9 - ANEMIA, UNSPECIFIED SNOMED Code(s): 856841089 (2) Atrial fibrillation Current Visit: No Status: Acute Code(s): I48.91 - UNSPECIFIED ATRIAL FIBRILLATION SNOMED Code(s): 49583068 (3) GI hemorrhage Current Visit: Yes Status: Acute Code(s): K92.2 - GASTROINTESTINAL HEMORRHAGE, UNSPECIFIED SNOMED Code(s): 86045528 Plan: 1. Supportive care 2. Diet as tolerated 3. Repeat CBC is reviewed 4. Continue to hold Pradaxa for another 48 hours 5. Patient may be discharged home from a gastroenterology standpoint, will need outpatient monitoring of hemoglobin and hematocrit. Follow up with GI if further episodes of bleeding. Tahnk you for this consultation. Dr. Bigg Onofre I agree with the dictator's note, documented as a scribe by Liana Newman.
== END 2020-04-24 15:50 | disposition home or self-care (01) | DRG 378 ==
LOC: EC 12:31 → 3SCARD 14:10
PROVIDERS: ADMIT Family Medicine; ATTEND Family Medicine
DX: K55.21 Angiodysplasia of colon with hemorrhage (principal); I42.9 Cardiomyopathy, unspecified; I13.0 Hypertensive heart and chronic kidney disease with heart failure and stage 1 through stage 4 chronic kidney disease, or unspecified chronic kidney disease; I48.19 Other persistent atrial fibrillation; I48.92 Unspecified atrial flutter; D62 Acute posthemorrhagic anemia; I50.22 Chronic systolic (congestive) heart failure; Z20.822 Contact with and (suspected) exposure to COVID-19; N18.30 Chronic kidney disease, stage 3 unspecified; I25.10 Atherosclerotic heart disease of native coronary artery without angina pectoris; E78.5 Hyperlipidemia, unspecified; N40.0 Benign prostatic hyperplasia without lower urinary tract symptoms; I44.7 Left bundle-branch block, unspecified; F10.11 Alcohol abuse, in remission; E03.9 Hypothyroidism, unspecified; F32.9 Major depressive disorder, single episode, unspecified; I08.0 Rheumatic disorders of both mitral and aortic valves; K29.70 Gastritis, unspecified, without bleeding; Z79.01 Long term (current) use of anticoagulants; Z79.82 Long term (current) use of aspirin; Z79.890 Hormone replacement therapy; Z79.899 Other long term (current) drug therapy; Z95.5 Presence of coronary angioplasty implant and graft; Z95.1 Presence of aortocoronary bypass graft; Z95.2 Presence of prosthetic heart valve; Z90.81 Acquired absence of spleen; Z98.890 Other specified postprocedural states; Z87.891 Personal history of nicotine dependence
CPT/HCPCS: 36415; 43235; 45382; 71045; 80048; 80053; 83735; 84484; 85025; 85027; 85610; 85730; 86850; 86900; 86901; 86920; 87635; 93005; 96374; 99284

== ENCOUNTER → 2020-04-21 | Outpatient (CLI) | payer BC, MEDICARE ==
[2020-04-21 11:34] LABS: Basophils % (A) 0 %; Eosinophils # (A) 0.1 k/uL (0-0.7); Eosinophils % (A) 1 %; Hypochromasia Slight; Lymphocytes # (A) 3.3 k/uL (1.0-4.8); Lymphocytes % (A) 49 %; MCH 33.5 pg (25.0-35.0); Macrocytosis Moderate; Mean Platelet Volume 8.1; Monocytes # (A) 0.3 k/uL (0-1.0); Monocytes % (A) 5 %; Neutrophils # (A) 2.8 k/uL (1.3-7.7); Neutrophils % (A) 42 %; Platelet Count 345 k/uL (150-450); RBC 1.91 m/uL (4.30-5.90); RDW 14.4 % (11.5-15.5); WBC 6.7 k/uL (3.8-10.6)
[2020-04-21 11:37] LABS: HGB 6.4 gm/dL (13.0-17.5)
[2020-04-21 11:39] LABS: MCV 104.7 fL (80.0-100.0)
== END | disposition home or self-care (01) ==
LOC: LABWHC1 10:39
PROVIDERS: ATTEND Family Medicine
DX: R19.5 Other fecal abnormalities (principal)
CPT/HCPCS: 36415; 85025

== ENCOUNTER → 2020-08-05 | Outpatient (CLI) | payer BC, MEDICARE ==
--- NOTE | 2020-08-05 14:59 | XR ---
EXAMINATION TYPE: XR chest 2V DATE OF EXAM: 08/05/2020 COMPARISON: 04/21/2020 HISTORY: Heart valve replacement TECHNIQUE: Frontal and lateral views of the chest are obtained. FINDINGS: Bilateral perihilar prominence appears similar to the prior examination. Enlargement of the cardiac silhouette is unchanged with sternotomy changes noted. IMPRESSION: No significant change since the prior exam.
[2020-08-05 19:21] LABS: HCT 30.5 % (39.6-50.0); HGB 9.3 g/dL (13.0-17.0); MCH 29.1 pg (27.0-32.0); MCHC 30.5 g/dL (32.0-37.0); MCV 95.3 fL (80.0-97.0); Platelet Count 319 X 10*3/uL (140-440); RDW 21.9 % (11.5-14.5); WBC 10.02 X 10*3/uL (4.50-10.00)
[2020-08-05 23:14] LABS: African American GFR (CKD) 32.4 (60.0-200.0); Anion Gap 7.1 mmol/L (4.00-12.00); BUN/Creat Ratio 17.83 Ratio (12.00-20.00); Calcium 8.2 mg/dL (8.7-10.3); Carbon Dioxide 21.9 mmol/L (21.6-31.8); Non-African American GFR(CKD) 27.9 (60.0-200.0); Potassium 4.1 mmol/L (3.5-5.5)
== END | disposition home or self-care (01) ==
LOC: LABWHC1 14:37
PROVIDERS: ATTEND Internal Medicine Cardiovascular Disease
DX: I48.21 Permanent atrial fibrillation (principal); Z95.4 Presence of other heart-valve replacement
CPT/HCPCS: 36415; 71046; 80048; 83880; 85027

== ENCOUNTER 2020-08-14 11:06 | Day surgery (SDC) | payer BC, MEDICARE ==
[2020-08-14] MEDS ORDERED: SODIUM CHLORIDE 0.9% 500 ML 500 ML IV ONE (11:16)
[2020-08-14 11:39] VITALS: TEMP 97.1
[2020-08-14] MEDS ORDERED: fentaNYL (PF) 50 MCG/ML 2 ML AMP ONE (11:44)
[2020-08-14] MEDS: BENZOCAINE SPRAY 1 CAN MUCOUS MEM ONE ×2 (11:58→12:01)
[2020-08-14] MEDS: MIDAZOLAM 2 MG/2 ML VIAL IV ONE ×2 (12:01→12:03)
[2020-08-14] MEDS ORDERED: fentaNYL (PF) 50 MCG/ML 2 ML AMP IV ONE (12:01)
[2020-08-14] MEDS ORDERED: MIDAZOLAM 2 MG/2 ML VIAL IV ONE (12:05)
[2020-08-14] MEDS ORDERED: SODIUM CHLORIDE 0.9% 1,000 ML IV SCH (12:45)
[2020-08-14 13:46] VITALS: BP 121/78; PULSE 75; RESP 16
--- NOTE | 2020-08-14 17:21 | ECHOT ---
TRANSESOPHAGEAL ECHOCARDIOGRAM INDICATION: To rule out intracardiac thrombus prior to atrial fibrillation ablation in a patient with permanent atrial fibrillation. PROCEDURE NOTE: After obtaining informed consent, transesophageal echocardiogram is performed in left lateral position using an Omni plane probe. Local and IV sedation were obtained with Xylocaine 3 mg of Versed and 25 mcg of fentanyl. Total sedation time was 12 minutes. We performed 2D M-mode, color Doppler and spectral analysis. The patient tolerated the procedure well without any obvious immediate complications. This patient has a history of aortic valve and root replacement. He has a history of bicuspid aortic valve with coaptation of aorta and underwent surgery that involved valve replacement and graft that extends from the aortic root to the distal descending thoracic aorta. FINDINGS: 1. I do not see any intracardiac thrombus within the left atrial appendage, left atrium, right atrium, right ventricle. 2. Left atrium appears enlarged. 3. Right atrium and right ventricle appear mildly enlarged. 4. Mitral valve appears anatomically normal. There is moderate central mitral regurgitation noted. 5. Aortic valve is a bioprosthetic valve that appears thickened with mild restriction in leaflet mobility. There is severe aortic regurgitation noted. Perivalvular regurgitation is also noted. 6. Left ventricle has normal size, shows left ventricular hypertrophy, hypokinesis involving basal inferior wall with normal LV function with ejection fraction of 50%. There is mild tricuspid regurgitation noted. 7. There is no evidence of [id number] shunt across the interatrial septum or right- to-left shunt by agitated saline contrast study. CONCLUSIONS: 1. No intracardiac thrombus. 2. Severe aortic regurgitation with evidence of prosthetic valve malfunction. PLAN: The patient will undergo atrial fibrillation ablation and if his heart failure symptoms do not improve, I will consider referring him for aortic valve replacement either redo surgery or if it is technically feasible, TAVR. The patient had aortic valve and root surgery in May of 2013 that involved ascending aorta to descending thoracic aorta bypass with graft and a size 27 freestyle inclusion root replacement. MMODL / IJN: [id number] /
== END 2020-08-14 13:47 | disposition home or self-care (01) ==
LOC: CATHCVL 11:06
PROVIDERS: ATTEND Internal Medicine Cardiovascular Disease
DX: I48.21 Permanent atrial fibrillation (principal); I08.0 Rheumatic disorders of both mitral and aortic valves; R01.1 Cardiac murmur, unspecified; I10 Essential (primary) hypertension; Z20.822 Contact with and (suspected) exposure to COVID-19; Z87.891 Personal history of nicotine dependence; Z79.82 Long term (current) use of aspirin; Z79.890 Hormone replacement therapy; Z79.899 Other long term (current) drug therapy
CPT/HCPCS: 93312; 93320; 93325; 87635; J2250; J3010

== ENCOUNTER → 2020-08-22 | Outpatient (CLI) | payer BC, MEDICARE | END | disposition home or self-care (01) | LOC: LABWHC1 15:48 | PROVIDERS: ATTEND Internal Medicine Cardiovascular Disease | DX: I50.22 Chronic systolic (congestive) heart failure (principal); T82.01XA Breakdown (mechanical) of heart valve prosthesis, initial encounter; Y71.2 Prosthetic and other implants, materials and accessory cardiovascular devices associated with adverse incidents | CPT/HCPCS: 36415; 87040 ==